=== PATIENT | female | born 1960 | race Caucasian/White ===

== ENCOUNTER → 2017-04-26 16:25 | Outpatient (CLI) | payer OTHER, SELFPAY ==
--- NOTE | 2017-04-26 16:29 | RAD_ITS ---
STUDY: X-RAY - CERVICAL SPINE REASON FOR EXAM: Female, 57 years old. Chronic neck pain. No known injury. TECHNIQUE: 3 view(s) of the cervical spine were obtained. COMPARISON: 03/01/2017 FINDINGS: There are degenerative changes of the anterior atlantoaxial articulation. Normal odontoid process. There is straightening of the normal cervical lordosis. There is diffuse demineralization of the cervical spine. C7 vertebra is not well-seen on the lateral view There is mild disc space narrowing of C3-C4. Normal visualized intervertebral neuroforamina. The soft tissue structures are unremarkable. RAD/Cerv Spine 2 or 3 Views IMPRESSION: Straightening of the cervical spine which could be due to muscle spasm. Mild degenerative changes cervical spine. Demineralization of the osseous structures. Electronically Signed: Corwin Melchor MD at 1:18 EST Tel , Service support ,
== END ==
PROVIDERS: Family Provider Family Medicine Geriatric Medicine; PCP Family Medicine Geriatric Medicine; Visit Provider Family Medicine Geriatric Medicine
DX: R05 Cough (principal); G54.2 Cervical root disorders, not elsewhere classified
CPT/HCPCS: 72040; 87633

== ENCOUNTER → 2017-05-05 16:08 | Outpatient (CLI) | payer OTHER, SELFPAY ==
--- NOTE | 2017-05-05 16:10 | MRI_ITS ---
STUDY: MRI CERVICAL SPINE WITHOUT CONTRAST REASON FOR EXAM: Female, 57 years old. Neck pain and radiculopathy. TECHNIQUE: Standardized fat and water weighted pulse sequences were obtained in the sagittal and axial planes. COMPARISON: Radiographs of cervical spine dated April 26, 2017. FINDINGS: Normal foramen magnum and brainstem-cervical cord junction. Normal craniovertebral junction. Normal anterior atlantoaxial articulation. Normal odontoid process. Normal cervical lordosis. There is mild decreased height of the C3, C4, C5, C6 and C7 vertebral bodies. This may be a developmental variant or sequela of old mild compression fractures. The remaining vertebral bodies have normal height and alignment. There is focus of abnormal T1 and T2 hyperintensity within T1 vertebral body. This may represent a hemangioma. C2-3: Normal endplates. Normal disc height, signal and morphology. Normal central canal and intervertebral neural foramina. C3-4: There is severe right-sided neural foraminal narrowing with potential nerve impingement. Left neural foramen is moderately narrowed. There is mild central acquired canal stenosis. There is a mild disc bulge. There is uncovertebral facet joint arthropathy. C4-5: There is severe bilateral neural foraminal narrowing with potential nerve impingement. There is a mild disc bulge. There is uncovertebral facet joint arthropathy. C5-6: Axial images at this level are limited by patient motion. The neural foramina are patent without evidence for nerve impingement. There is mild disc bulge. There is no significant central acquired canal stenosis. C6-7: Normal endplates. Normal disc height, signal and morphology. Normal central canal and intervertebral neural foramina. C7-T1: Normal endplates. Normal disc height, signal and morphology. Normal central canal and intervertebral neural foramina. Normal cervical cord. There is no demonstrated cervical cord syrinx cavity. Normal visualized soft tissue structures. MRI/Spine Cervical (Routine) IMPRESSION: Multilevel degenerative disc disease and degenerative arthropathy of the cervical spine with neural foraminal narrowing and potential nerve impingement, as described. Electronically Signed: Meena Street MD at 10:22 EST , Service support ,
== END ==
PROVIDERS: Family Provider Family Medicine Geriatric Medicine; PCP Family Medicine Geriatric Medicine; Visit Provider Family Medicine Geriatric Medicine
DX: G54.2 Cervical root disorders, not elsewhere classified (principal)
CPT/HCPCS: 72141

== ENCOUNTER → 2017-06-02 14:56 | Outpatient (CLI) | payer OTHER, SELFPAY ==
[2017-06-02 15:15] LABS: Absolute Lymphocyte Count 4.47 X10^3/ul (0.83-4.51); Absolute Neutrophil Count 5.7 X10^3/uL (2.0-7.7); Basophil# 0.06 X10^3/uL; Basophil% 0.5 % (0-1); Eosinophil# 0.17 X10^3/uL; Eosinophils% 1.5 % (0-5); Hematocrit 41.5 % (37-47); Hemoglobin 13.3 g/dl (12.0-15.0); Lymphocyte # 4.47 X10^3/ul (4.0); Lymphocyte % 39.5 % (19-41); Mean Corpuscular Hgb 28.9 pg (27.0-32.0); Monocyte# 0.87 X10^3/uL; Monocyte% 7.7 % (0-10); Neutrophil # 5.71 X10^3/uL (2.7-7.7); Neutrophil % 50.5 % (47-70); Platelet Count 449 K/mm3 (150-450); RBC Distribution Width CV 17.6 % (11.6-14.6); RBC Distribution Width SD 57.8 fl (35.1-43.9); Red Blood Count 4.61 M/mm3 (4.2-5.4); White Blood Count 11.3 K/mm3 (4.4-11.0)
[2017-06-02 15:35] LABS: POSITIVE COUNT NO; POSITIVE DIFFERENTIAL NO; POSITIVE MORPHOLOGY NO
[2017-06-02 15:53] LABS: ALB/GLOB Ratio 0.7 RATIO (0.9-2.4); AST(SGOT) 8 U/L (15-37); Alanine Aminotransfer ALT/SGPT 13 U/L (13-56); Albumin, Serum 3.3 g/dL (3.2-5.0); Alkaline Phosphatase 93 U/L (45-117); Anion Gap 10 (5-15); BUN 14 mg/dL (7-18); BUN/Creat Ratio 16.1 RATIO (10-20); Calcium,Total 8.7 mg/dL (8.5-10.1); Chloride 103 mmol/L (98-107); Creatinine, Serum 0.87 mg/dL (0.55-1.02); EST Glomerular Filtration Rate 71 mL/min (>60); Est Glom Filt Rate - Afr Amer 86 mL/min (>60); Globulin 4.5 g/dL (2.2-4.2); Glucose 86 mg/dL (74-106); Potassium 4.1 mmol/L (3.5-5.1); Protein, Total 7.8 g/dL (6.4-8.2); Sodium Level 136 mmol/L (136-145); Thyroid Stim Hormone (TSH) 3.17 uIU/mL (0.358-3.74)
== END ==
PROVIDERS: Family Provider Family Medicine Geriatric Medicine; PCP Family Medicine Geriatric Medicine; Visit Provider Family Medicine Geriatric Medicine
DX: E11.9 Type 2 diabetes mellitus without complications (principal); I10 Essential (primary) hypertension
CPT/HCPCS: 36415; 80053; 84443; 85025

== ENCOUNTER → 2017-10-11 08:26 | Outpatient (CLI) | payer OTHER, SELFPAY ==
--- NOTE | 2017-10-11 08:28 | RAD_ITS ---
STUDY: X-RAY - CERVICAL SPINE REASON FOR EXAM: Female, 57 years old. Pain radiating down rt arm TECHNIQUE: 4 view(s) of the cervical spine were obtained. COMPARISON: None FINDINGS: There are degenerative changes of the anterior atlantoaxial articulation. Normal odontoid process. There is straightening of the normal cervical lordosis. There is multi-level endplate spondylosis. There is multi-level degenerative disc disease with multilevel disc space narrowing. The flexion-extension views show limited range of motion. There is no evidence of instability. The soft tissue structures are unremarkable. RAD/Cerv Spine 4 or 5 Views IMPRESSION: There is multi-level degenerative disc disease with multilevel disc space narrowing. The flexion-extension views show limited range of motion. There is no evidence of instability. Electronically Signed: Donna Hernandez MD at 20:20 EDT Tel , Service support ,
== END ==
PROVIDERS: Family Provider Family Medicine Geriatric Medicine; PCP Family Medicine Geriatric Medicine; Visit Provider Orthopaedic Surgery
DX: M54.2 Cervicalgia (principal)
CPT/HCPCS: 72050

== ENCOUNTER → 2017-11-15 16:48 | Outpatient (CLI) | payer OTHER, SELFPAY ==
[2017-11-15 17:38] LABS: Absolute Lymphocyte Count 4.63 X10^3/ul (0.83-4.51); Absolute Neutrophil Count 6.6 X10^3/uL (2.0-7.7); Basophil# 0.07 X10^3/uL; Basophil% 0.5 % (0-1); Eosinophil# 0.31 X10^3/uL; Eosinophils% 2.4 % (0-5); Hematocrit 42.2 % (37-47); Hemoglobin 13.3 g/dl (12.0-15.0); Lymphocyte # 4.63 X10^3/ul (4.0); Lymphocyte % 36.1 % (19-41); Mean Corp Hgb Conc 31.5 g/gl (32-36); Mean Corpuscular Hgb 27.9 pg (27.0-32.0); Mean Corpuscular Volume 88.7 fL (81-99); Mean Platelet Vol. 10.3 fl (6.2-12.0); Monocyte# 1.15 X10^3/uL; Neutrophil # 6.63 X10^3/uL (2.7-7.7); Neutrophil % 51.8 % (47-70); Platelet Count 399 K/mm3 (150-450); RBC Distribution Width CV 15.8 % (11.6-14.6); Red Blood Count 4.76 M/mm3 (4.2-5.4); White Blood Count 12.8 K/mm3 (4.4-11.0)
[2017-11-15 17:39] LABS: Differential Indicated SCAN CRITERIA MET; POSITIVE COUNT NO; POSITIVE DIFFERENTIAL NO; POSITIVE MORPHOLOGY YES
[2017-11-15 17:54] LABS: ALB/GLOB Ratio 0.8 RATIO (0.9-2.4); AST(SGOT) 9 U/L (15-37); Alanine Aminotransfer ALT/SGPT 16 U/L (13-56); Albumin, Serum 3.5 g/dL (3.2-5.0); Alkaline Phosphatase 99 U/L (45-117); Anion Gap 6 (5-15); BUN 16 mg/dL (7-18); BUN/Creat Ratio 16.1 RATIO (10-20); Calcium,Total 9.1 mg/dL (8.5-10.1); Chloride 103 mmol/L (98-107); EST Glomerular Filtration Rate 61 mL/min (>60); Est Glom Filt Rate - Afr Amer 73 mL/min (>60); Globulin 4.4 g/dL (2.2-4.2); Glucose 115 mg/dL (74-106); Potassium 4.1 mmol/L (3.5-5.1); Protein, Total 7.9 g/dL (6.4-8.2); Sodium Level 136 mmol/L (136-145); Thyroid Stim Hormone (TSH) 1.86 uIU/mL (0.358-3.74)
[2017-11-15 18:09] LABS: Differential Comment SCANNED
[2017-11-18 11:51] LABS: Hep C Antibodies <0.1 s/co ratio (0.0-0.9)
== END ==
PROVIDERS: Family Provider Family Medicine Geriatric Medicine; PCP Family Medicine Geriatric Medicine; Visit Provider Family Medicine Geriatric Medicine
DX: E11.9 Type 2 diabetes mellitus without complications (principal); I10 Essential (primary) hypertension; Z13.89 Encounter for screening for other disorder
CPT/HCPCS: 36415; 80053; 84443; 85025; 86803

== ENCOUNTER → 2017-11-30 06:27 | Outpatient (CLI) | payer OTHER, SELFPAY ==
--- NOTE | 2017-11-30 13:30 | NEURO ---
NCS and/or EMG Patient Report Ordering Doctor: Adeel Norman Chi DATE OF SERVICE: 11/30/17 Sho Mahan is a 57-year-old female presents for electrodiagnostic testing of the upper limbs. She reports numbness and tingling in both hands, which often wake her up at night. Electrodiagnostic findings: The left median motor nerve demonstrates prolonged distal latency with normal amplitude and mildly reduced conduction velocity. Prolonged left median sensory latency is noted. The right median motor nerve demonstrates normal distal latency and amplitude with mildly reduced conduction velocity. Mildly delayed right median sensory distal latency. Ulnar motor responses within normal limits bilaterally. Needle EMG testing shows no evidence of denervation with normal motor unit action potentials. Electrodiagnostic impression: This is an abnormal study in the upper limbs. 1. Electrodiagnostic findings demonstrate bilateral median mononeuropathy. This is consistent with a mild bilateral carpal tunnel syndrome. 2. No EMG evidence for cervical radiculopathy. If there are any further questions, please do not hesitate to contact me
== END ==
LOC: PSN 06:27
PROVIDERS: Family Provider Family Medicine Geriatric Medicine; PCP Family Medicine Geriatric Medicine; Visit Provider Family Medicine Geriatric Medicine
DX: G54.2 Cervical root disorders, not elsewhere classified (principal); R20.0 Anesthesia of skin
CPT/HCPCS: 95886; 95912

== ENCOUNTER → 2017-12-05 14:21 | Outpatient (CLI) | payer OTHER, SELFPAY ==
--- NOTE | 2017-12-05 14:22 | CT_ITS ---
STUDY: CT ABDOMEN AND PELVIS WITH CONTRAST REASON FOR EXAM: Female, 57 years old. Abdominal pain. RADIATION DOSAGE (If Supplied By Facility): CTDIvol = ( 20.39 ) mGy, DLP = ( 1173.29 ) mGycm TECHNIQUE: Transaxial images were obtained from the dome of the diaphragm to the symphysis pubis without oral contrast. 100 ml of Isovue 300 contrast was administered. Sagittal and coronal images were reconstructed. Individualized dose optimization techniques were used for this CT. COMPARISON: None. FINDINGS: The visualized lung bases are clear. The visualized portions of the heart and pericardium are within normal limits. The patient is status post cholecystectomy. The liver is within normal limits. There are no suspicious hepatic lesions. The spleen is normal in size. The pancreas is within normal limits. The adrenal glands are within normal limits. There are no renal or ureteral stones. There is no hydronephrosis. There is a cyst in the left kidney. There are no additional renal lesions. There is a small hiatal hernia. The proximal stomach wall appears thickened. This may be due to under distention or gastritis. There are thickened loops of small bowel in right lower quadrant which are consistent with enteritis. There is no bowel obstruction. The patient is status post appendectomy. The aorta is normal in caliber. There are atherosclerotic calcifications noted in the aorta and its branches. There is no abdominal or pelvic free air, free fluid, fluid collection or lymphadenopathy. There are no destructive osseous lesions. CT/Abdomen/Pelvis WITH Contrast IMPRESSION: Thickened loops of small bowel in the right lower quadrant which are consistent with enteritis. Thickening of the proximal stomach wall. This may be due to under distention or gastritis. Clinical correlation is recommended. No bowel obstruction. Status post appendectomy. Electronically Signed: Angel Santoro, at 16:54 EDT Tel , Service support ,
[2017-12-05 15:20] LABS: ALB/GLOB Ratio 0.7 RATIO (0.9-2.4); AST(SGOT) 15 U/L (15-37); Alanine Aminotransfer ALT/SGPT 18 U/L (13-56); Albumin, Serum 3.4 g/dL (3.2-5.0); Alkaline Phosphatase 112 U/L (45-117); Amylase 24 U/L (25-115); Anion Gap 10 (5-15); BUN 26 mg/dL (7-18); BUN/Creat Ratio 20.5 RATIO (10-20); Calcium,Total 9.4 mg/dL (8.5-10.1); Chloride 103 mmol/L (98-107); Creatinine, Serum 1.27 mg/dL (0.55-1.02); EST Glomerular Filtration Rate 46 mL/min (>60); Est Glom Filt Rate - Afr Amer 55 mL/min (>60); Glucose 96 mg/dL (74-106); Lipase 288 U/L (73-393); Potassium 3.6 mmol/L (3.5-5.1); Protein, Total 8.4 g/dL (6.4-8.2); Sodium Level 134 mmol/L (136-145)
== END ==
PROVIDERS: Family Provider Family Medicine Geriatric Medicine; PCP Family Medicine Geriatric Medicine; Visit Provider Family Medicine Geriatric Medicine
DX: K57.32 Diverticulitis of large intestine without perforation or abscess without bleeding (principal); R10.9 Unspecified abdominal pain
CPT/HCPCS: 74177; 80053; 82150; 83690; Q9967

== ENCOUNTER → 2017-12-07 09:29 | Outpatient (CLI) | payer OTHER, SELFPAY | PROVIDERS: Family Provider Family Medicine Geriatric Medicine; PCP Family Medicine Geriatric Medicine; Visit Provider Family Medicine Geriatric Medicine | DX: R19.7 Diarrhea, unspecified (principal) | CPT/HCPCS: 82274; 83630; 87070; 87177; 87205; 87209; 87493; 87506 ==

== ENCOUNTER → 2018-03-15 15:07 | Outpatient (CLI) | payer OTHER, SELFPAY ==
[2018-02-23 15:24] VITALS: BMI 32.8
--- NOTE | 2018-03-15 15:09 | ECHOD_ITS ---
Reason For Study: MURMUR Procedure This was a 2D Doppler, Color Flow transthoracic echocardiogram. The study was technically difficult. Exam performed in department. Left Ventricle Normal LV size. Segmental dysfunction with preserved ejection fraction (see wall motion). The estimated ejection fraction is 60 %. No evidence for diastolic dysfunction. Infero-Basal: Hypokinetic. Right Ventricle Normal RV size. Normal systolic function. Atria The left atrium is mildly enlarged. Normal right atrium. No doppler evidence for ASD. Mitral Valve There is mild mitral annular calcification. Normal mitral valve. Trivial mitral valve insufficiency. Tricuspid Valve Normal tricuspid valve. Trivial tricuspid valve insufficiency. Right ventricular systolic pressure estimated to be 24 mmHg. Aortic Valve Trisinus/trileaflet aortic valve. Mild focal aortic valve calcification. Pulmonic Valve The pulmonic valve is not well visualized. Great Vessels Normal sized aortic root. Pericardium/Pleural No pericardial effusion. MMode/2D Measurements & Calculations LVIDd: 3.9 cm IVSd: 0.98 cm Ao root diam: 3.0 cm LVIDs: 2.8 cm LVPWd: 0.96 cm RVDd: 2.5 cm FS: 28.7 % LAV(MOD-bp): 55.9 ml LVAd ap4: 22.1 cm2 SV(MOD-sp4): 36.3 ml LAV(MOD-bp) Indexed: 29.7 ml/m2 EDV(MOD-sp4): 60.8 ml LAV(MOD-sp2): 62.5 ml EDV(sp4-el): 64.0 ml LAV(MOD-sp4): 49.2 ml LVAs ap4: 12.4 cm2 ESV(MOD-sp4): 24.6 ml ESV(sp4-el): 25.0 ml EF(MOD-sp4): 59.6 % EF(sp4-el): 60.9 % SV(sp4-el): 39.0 ml LA A4 area: 18.2 cm2 LA dimension(2D): 4.3 cm RA A4 area: 11.5 cm2 Time Measurements MV dec time: 0.24 sec Doppler Measurements & Calculations MV E max salbador: 75.6 cm/sec Lat Peak E' Salbador: 7.7 cm/sec Med Peak E' Salbador: 5.7 cm/sec MV A max salbador: 101.6 cm/sec E/E' lat: 9.8 E/E' med: 13.2 MV E/A: 0.74 Ao V2 max: 126.7 cm/sec LV V1 max: 100.0 cm/sec PA V2 max: 112.5 cm/sec Ao max P.4 mmHg LV V1 max P.0 mmHg TR max salbador: 229.7 cm/sec TR max P.3 mmHg Interpretation Summary The study was technically difficult. Segmental dysfunction with preserved ejection fraction (see wall motion). The estimated ejection fraction is 60 %. The left atrium is mildly enlarged. There is mild mitral annular calcification. Trivial mitral valve insufficiency. Trivial tricuspid valve insufficiency. Mild focal aortic valve calcification. Right ventricular systolic pressure estimated to be 24 mmHg. No evidence for diastolic dysfunction. Ordering Physician: Liam Cazares Referring Physician: DEAN YE CHI Performed By: Jesika Oliver, RDCS, RVT
== END ==
PROVIDERS: Family Provider Family Medicine Geriatric Medicine; PCP Family Medicine Geriatric Medicine; Referring Provider Internal Medicine Cardiovascular Disease; Visit Provider Internal Medicine Cardiovascular Disease
DX: I38 Endocarditis, valve unspecified (principal); R01.1 Cardiac murmur, unspecified
CPT/HCPCS: 93306

== ENCOUNTER → 2018-11-21 09:32 | Outpatient (CLI) | payer OTHER, SELFPAY ==
[2018-02-23 15:24] VITALS: BMI 32.8
[2018-11-21 17:10] LABS: Absolute Lymphocyte Count 4.08 X10^3/uL (0.83-4.51); Absolute Neutrophil Count 5.2 X10^3/uL (2.0-7.7); Basophil# 0.09 X10^3/uL; Basophil% 0.9 % (0-1); Eosinophil# 0.25 X10^3/uL; Eosinophils% 2.4 % (0-5); Hematocrit 40.9 % (37-47); Hemoglobin 12.9 g/dL (12.0-15.0); Lymphocyte # 4.08 X10^3/ul (4.0); Lymphocyte % 39.3 % (19-41); Mean Corp Hgb Conc 31.5 g/dL (32-36); Mean Corpuscular Hgb 27.6 pg (27.0-32.0); Mean Corpuscular Volume 87.4 fL (81-99); Mean Platelet Vol. 10.7 fl (6.2-12.0); Monocyte# 0.77 X10^3/uL; Monocyte% 7.4 % (0-10); NRBC Flagged by Analyzer 0 % (0-5); Neutrophil # 5.15 X10^3/uL (2.7-7.7); Neutrophil % 49.7 % (47-70); POSITIVE MORPHOLOGY YES; Platelet Count 422 K/mm3 (150-450); RBC Distribution Width CV 17.3 % (11.6-14.6); Red Blood Count 4.68 M/mm3 (4.2-5.4); White Blood Count 10.4 K/mm3 (4.4-11.0)
[2018-11-21 17:21] LABS: Differential Indicated SCAN CRITERIA MET
[2018-11-21 17:26] LABS: Vitamin D,25 Hydroxy 17.6 ng/mL (29.95-100.01)
[2018-11-21 17:30] LABS: ALB/GLOB Ratio 0.8 RATIO (0.9-2.4); AST(SGOT) 8 U/L (15-37); Alanine Aminotransfer ALT/SGPT 17 U/L (13-56); Albumin, Serum 3.3 g/dL (3.2-5.0); Alkaline Phosphatase 133 U/L (45-117); Anion Gap 6 (5-15); BUN 10 mg/dL (7-18); BUN/Creat Ratio 12.8 RATIO (10-20); Calcium,Total 8.9 mg/dL (8.5-10.1); Chloride 104 mmol/L (98-107); Creatinine, Serum 0.78 mg/dL (0.55-1.02); EST Glomerular Filtration Rate 80 mL/min (>60); Est Glom Filt Rate - Afr Amer 97 mL/min (>60); Globulin 4.3 g/dL (2.2-4.2); Glucose 94 mg/dL (74-106); Potassium 3.3 mmol/L (3.5-5.1); Protein, Total 7.6 g/dL (6.4-8.2); Sodium Level 137 mmol/L (136-145); Thyroid Stim Hormone (TSH) 2.06 uIU/mL (0.358-3.74)
== END ==
LOC: POLAB3 09:33
PROVIDERS: Family Provider Family Medicine Geriatric Medicine; PCP Family Medicine Geriatric Medicine; Visit Provider Family Medicine Geriatric Medicine
DX: E11.9 Type 2 diabetes mellitus without complications (principal); E55.9 Vitamin D deficiency, unspecified; I10 Essential (primary) hypertension
CPT/HCPCS: 36415; 80053; 82306; 84443; 85025

== ENCOUNTER → 2019-05-29 11:24 | Outpatient (CLI) | payer OTHER, SELFPAY ==
[2018-02-23 15:24] VITALS: BMI 32.8
[2019-05-29 16:59] LABS: Absolute Lymphocyte Count 4.49 X10^3/uL (0.83-4.51); Absolute Neutrophil Count 6.1 X10^3/uL (2.0-7.7); Basophil# 0.12 X10^3/uL; Eosinophil# 0.24 X10^3/uL; Hematocrit 42.8 % (37-47); Lymphocyte # 4.49 X10^3/ul (4.0); Lymphocyte % 36.9 % (19-41); Mean Corp Hgb Conc 32.7 g/dL (32-36); Mean Corpuscular Hgb 28.7 pg (27.0-32.0); Mean Corpuscular Volume 87.9 fL (81-99); Monocyte# 1.13 X10^3/uL; Monocyte% 9.3 % (0-10); NRBC Flagged by Analyzer 0 % (0-5); Neutrophil # 6.14 X10^3/uL (2.7-7.7); Neutrophil % 50.4 % (47-70); Platelet Count 413 K/mm3 (150-450); RBC Distribution Width CV 15.1 % (11.6-14.6); RBC Distribution Width SD 48.7 fl (35.1-43.9); Red Blood Count 4.87 M/mm3 (4.2-5.4); White Blood Count 12.2 K/mm3 (4.4-11.0)
[2019-05-29 17:37] LABS: ALB/GLOB Ratio 0.7 RATIO (0.9-2.4); AST(SGOT) 14 U/L (15-37); Alanine Aminotransfer ALT/SGPT 21 U/L (13-56); Albumin, Serum 3.3 g/dL (3.2-5.0); Alkaline Phosphatase 117 U/L (45-117); Anion Gap 6 (5-15); BUN 11 mg/dL (7-18); BUN/Creat Ratio 13.9 RATIO (10-20); Calcium,Total 8.9 mg/dL (8.5-10.1); Chloride 99 mmol/L (98-107); Creatinine, Serum 0.79 mg/dL (0.55-1.02); EST Glomerular Filtration Rate 79 mL/min (>60); Est Glom Filt Rate - Afr Amer 96 mL/min (>60); Globulin 4.6 g/dL (2.2-4.2); Glucose 80 mg/dL (74-106); Potassium 3.3 mmol/L (3.5-5.1); Protein, Total 7.9 g/dL (6.4-8.2); Sodium Level 135 mmol/L (136-145); Thyroid Stim Hormone (TSH) 4.16 uIU/mL (0.358-3.74)
== END ==
PROVIDERS: PCP Family Medicine Geriatric Medicine; Visit Provider Family Medicine Geriatric Medicine
DX: I10 Essential (primary) hypertension (principal)
CPT/HCPCS: 36415; 80053; 84443; 85025

== ENCOUNTER → 2019-08-14 06:31 | Outpatient (CLI) | payer OTHER, SELFPAY ==
[2019-07-19 10:11] VITALS: BMI 29.2
--- NOTE | 2019-08-14 08:35 | STRESSREP_ITS ---
Stress Test Report Date: Procedure: Pharmacologic stress nuclear imaging study Indications: Chest discomfort; shortness of breath/dyspnea; CAD; status post CABG; CHF; valvular heart disease Consent: Per the patient Procedure: The patient underwent pharmacologic (Regadenoson) evaluation with a peak heart rate of 114 beats per minute (71 %predicted maximal heart rate) and a peak blood pressure of 166/90 mmHg. The baseline ECG demonstrated normal sinus rhythm. The peak pharmacologic ECG demonstrated no obvious ECG changes. There were no cardiac dysrhythmias pretest, during pharmacologic infusion, or recovery. There was no complaint of chest discomfort during pharmacologic infusion or recovery. The examination was discontinued secondary to completion of protocol. Impression: 1. Pharmacologic (Regadenoson) evaluation 2. Peak pharmacologic ECG with no obvious ECG changes. 3. There were no cardiac dysrhythmias pretest, during pharmacologic infusion, or recovery. 4. Nuclear images pending Myocardial perfusion imaging study: Technique: The patient was injected with 15.0 millicuries of technetium 99m Cardiolite and subsequently rest SPECT Cardiolite nuclear imaging was obtained in the horizontal long, vertical long, and short axis views. The patient underwent pharmacologic (Regadenoson) evaluation with a peak heart rate of 114 beats per minute (71 % percent predicted maximal heart rate) and a peak blood pressure of 166/90 mmHg. The patient was injected with 45.0 millicuries of technetium 99m Cardiolite and subsequently stress SPECT Cardiolite nuclear imaging was obtained in the horizontal long, vertical long, and short axis views. A gated Cardiolite study at peak stress was obtained. Interpretation: Rest and stress SPECT Cardiolite nuclear imaging status post realignment, normalization, and attenuation correction demonstrate the appearance of subtle diminished tracer uptake in the apical areas without significant change between rest and stress. There is end systolic thickening and brightening. The gated Cardiolite study demonstrates myocardial thickening and inward wall motion. The reported LVEF is 67 %. Impression: 1. Rest and stress SPECT Cardiolite nuclear imaging demonstrate myocardial perfusion changes compatible with physiologic apical thinning with no myocardial perfusion changes considered diagnostic for associated stress-induced myocardial ischemia. 2. The gated Cardiolite study reports an LVEF of 67 %. This note was generated with [employer] software. It may contain incorrect words, spelling, and punctuation that were not noted in checking the note before signing.
== END ==
PROVIDERS: PCP Family Medicine Geriatric Medicine; Referring Provider Internal Medicine Cardiovascular Disease; Visit Provider Internal Medicine Cardiovascular Disease
DX: I25.10 Atherosclerotic heart disease of native coronary artery without angina pectoris (principal); Z95.1 Presence of aortocoronary bypass graft; I11.0 Hypertensive heart disease with heart failure; I50.23 Acute on chronic systolic (congestive) heart failure; I38 Endocarditis, valve unspecified; E78.2 Mixed hyperlipidemia; R68.84 Jaw pain
CPT/HCPCS: 78452; 93017; A9500; A4216; J2785

== ENCOUNTER → 2020-01-14 16:33 | Outpatient (CLI) | payer OTHER, SELFPAY ==
[2018-02-23 15:24] VITALS: BMI 32.8
[2019-07-19 10:11] VITALS: BMI 29.2
[2020-01-14 17:56] LABS: Absolute Neutrophil Count 5.7 X10^3/uL (2.0-7.7); Eosinophil# 0.27 X10^3/uL; Eosinophils% 2.6 % (0-5); Hematocrit 38.2 % (37-47); Hemoglobin 12.3 g/dL (12.0-15.0); Lymphocyte % 32.7 % (19-41); Mean Corp Hgb Conc 32.2 g/dL (32-36); Mean Corpuscular Hgb 28.7 pg (27.0-32.0); Mean Platelet Vol. 10.4 fl (6.2-12.0); Monocyte# 0.85 X10^3/uL; Monocyte% 8.2 % (0-10); NRBC Flagged by Analyzer 0 % (0-5); Neutrophil # 5.73 X10^3/uL (2.7-7.7); Neutrophil % 54.9 % (47-70); Platelet Count 412 K/mm3 (150-450); RBC Distribution Width CV 14.4 % (11.6-14.6); RBC Distribution Width SD 45.8 fl (35.1-43.9); Red Blood Count 4.29 M/mm3 (4.2-5.4); White Blood Count 10.4 K/mm3 (4.4-11.0)
[2020-01-14 18:58] LABS: ALB/GLOB Ratio 0.7 RATIO (0.9-2.4); AST(SGOT) 12 U/L (15-37); Alanine Aminotransfer ALT/SGPT 18 U/L (13-56); Alkaline Phosphatase 109 U/L (45-117); Anion Gap 8 (5-15); BUN 8 mg/dL (7-18); BUN/Creat Ratio 10.6 RATIO (10-20); Calcium,Total 8.4 mg/dL (8.5-10.1); Chloride 104 mmol/L (98-107); Creatinine, Serum 0.76 mg/dL (0.55-1.02); EST Glomerular Filtration Rate 83 mL/min (>60); Est Glom Filt Rate - Afr Amer 100 mL/min (>60); Globulin 4.5 g/dL (2.2-4.2); Glucose 119 mg/dL (74-106); Potassium 3.5 mmol/L (3.5-5.1); Protein, Total 7.5 g/dL (6.4-8.2); Sodium Level 138 mmol/L (136-145); Thyroid Stim Hormone (TSH) 1.56 uIU/mL (0.358-3.74)
== END ==
LOC: POLAB3 16:33
PROVIDERS: PCP Family Medicine Geriatric Medicine; Visit Provider Family Medicine Geriatric Medicine
DX: E87.6 Hypokalemia (principal); E03.9 Hypothyroidism, unspecified; I10 Essential (primary) hypertension
CPT/HCPCS: 36415; 80053; 84443; 85025

== ENCOUNTER → 2020-04-22 17:22 | Outpatient (CLI) | payer MEDICAID, SELFPAY ==
[2019-07-19 10:11] VITALS: BMI 29.2
== END ==
PROVIDERS: PCP Family Medicine Geriatric Medicine; Referring Provider Family Medicine Geriatric Medicine; Visit Provider Family Medicine Geriatric Medicine
DX: R68.83 Chills (without fever) (principal)
CPT/HCPCS: 87633; 87635; C9803; U0005; U0003

== ENCOUNTER → 2020-07-14 16:08 | Outpatient (CLI) | payer MEDICAID, SELFPAY ==
[2019-07-19 10:11] VITALS: BMI 29.2
[2020-07-14 17:36] LABS: Absolute Lymphocyte Count 3.97 X10^3/uL (0.83-4.51); Absolute Neutrophil Count 4.6 X10^3/uL (2.0-7.7); Basophil# 0.09 X10^3/uL; Basophil% 0.9 % (0-1); Eosinophil# 0.25 X10^3/uL; Eosinophils% 2.5 % (0-5); Hematocrit 40.1 % (37-47); Hemoglobin 12.6 g/dL (12.0-15.0); Lymphocyte # 3.97 X10^3/ul (0.83-4.51); Lymphocyte % 40.3 % (19-41); Mean Corp Hgb Conc 31.4 g/dL (32-36); Mean Corpuscular Hgb 27.4 pg (27.0-32.0); Mean Corpuscular Volume 87.2 fL (81-99); Mean Platelet Vol. 10.3 fl (6.2-12.0); Monocyte# 0.87 X10^3/uL; Monocyte% 8.8 % (0-10); NRBC Flagged by Analyzer 0 % (0-5); Neutrophil # 4.63 X10^3/uL (2.7-7.7); Neutrophil % 47.2 % (47-70); Platelet Count 438 K/mm3 (150-450); RBC Distribution Width CV 14.5 % (11.6-14.6); RBC Distribution Width SD 46.3 fl (35.1-43.9); White Blood Count 9.8 K/mm3 (4.4-11.0)
[2020-07-14 18:00] LABS: ALB/GLOB Ratio 0.7 RATIO (0.9-2.4); AST(SGOT) 11 U/L (15-37); Alanine Aminotransfer ALT/SGPT 22 U/L (13-56); Albumin, Serum 3.2 g/dL (3.2-5.0); Alkaline Phosphatase 137 U/L (45-117); Anion Gap 6 (5-15); BUN 12 mg/dL (7-18); BUN/Creat Ratio 16.2 RATIO (10-20); Calcium,Total 9.2 mg/dL (8.5-10.1); Chloride 100 mmol/L (98-107); Creatinine, Serum 0.74 mg/dL (0.55-1.02); EST Glomerular Filtration Rate 84 mL/min (>60); Est Glom Filt Rate - Afr Amer 102 mL/min (>60); Globulin 4.5 g/dL (2.2-4.2); Glucose 100 mg/dL (74-106); Potassium 3.8 mmol/L (3.5-5.1); Protein, Total 7.7 g/dL (6.4-8.2); Sodium Level 135 mmol/L (136-145); Thyroid Stim Hormone (TSH) 2.89 uIU/mL (0.358-3.74)
== END ==
PROVIDERS: PCP Family Medicine Geriatric Medicine; Visit Provider Family Medicine Geriatric Medicine
DX: I10 Essential (primary) hypertension (principal)
CPT/HCPCS: 36415; 80053; 84443; 85025

== ENCOUNTER → 2021-01-15 15:56 | Outpatient (CLI) | payer MEDICAID, SELFPAY ==
[2021-01-15 16:42] LABS: Absolute Lymphocyte Count 4.22 X10^3/uL (0.83-4.51); Absolute Neutrophil Count 6.8 X10^3/uL (2.0-7.7); Basophil% 0.8 % (0-1); Eosinophil# 0.35 X10^3/uL; Eosinophils% 2.8 % (0-5); Hematocrit 38.7 % (37-47); Hemoglobin 12.6 g/dL (12.0-15.0); Lymphocyte # 4.22 X10^3/ul (0.83-4.51); Lymphocyte % 33.4 % (19-41); Mean Corp Hgb Conc 32.6 g/dL (32-36); Mean Corpuscular Hgb 27.6 pg (27.0-32.0); Mean Corpuscular Volume 84.9 fL (81-99); Mean Platelet Vol. 10.1 fl (6.2-12.0); Monocyte# 1.16 X10^3/uL; Monocyte% 9.2 % (0-10); NRBC Flagged by Analyzer 0 % (0-5); Neutrophil # 6.75 X10^3/uL (2.7-7.7); Neutrophil % 53.4 % (47-70); POSITIVE MORPHOLOGY YES; Platelet Count 401 K/mm3 (150-450); RBC Distribution Width CV 16.1 % (11.6-14.6); RBC Distribution Width SD 50.2 fl (35.1-43.9); Red Blood Count 4.56 M/mm3 (4.2-5.4); White Blood Count 12.6 K/mm3 (4.4-11.0)
[2021-01-15 16:45] LABS: Differential Indicated SCAN CRITERIA MET
[2021-01-15 17:06] LABS: ALB/GLOB Ratio 0.7 RATIO (0.9-2.4); AST(SGOT) 16 U/L (15-37); Alanine Aminotransfer ALT/SGPT 25 U/L (13-56); Albumin, Serum 3.2 g/dL (3.2-5.0); Alkaline Phosphatase 122 U/L (45-117); Anion Gap 8 (5-15); BUN 15 mg/dL (7-18); BUN/Creat Ratio 19.4 RATIO (10-20); Calcium,Total 8.4 mg/dL (8.5-10.1); Chloride 97 mmol/L (98-107); Creatinine, Serum 0.77 mg/dL (0.55-1.02); EST Glomerular Filtration Rate 80 mL/min (>60); Est Glom Filt Rate - Afr Amer 97 mL/min (>60); Globulin 4.7 g/dL (2.2-4.2); Glucose 95 mg/dL (74-106); Potassium 4.2 mmol/L (3.5-5.1); Protein, Total 7.9 g/dL (6.4-8.2); Sodium Level 133 mmol/L (136-145); Thyroid Stim Hormone (TSH) 3.25 uIU/mL (0.358-3.74)
[2021-01-15 17:39] LABS: Differential Comment SCANNED
== END ==
PROVIDERS: PCP Family Medicine Geriatric Medicine; Visit Provider Family Medicine Geriatric Medicine
DX: I10 Essential (primary) hypertension (principal); E11.9 Type 2 diabetes mellitus without complications
CPT/HCPCS: 36415; 80053; 84443; 85025

== ENCOUNTER 2021-02-13 11:29 | Inpatient (IN) | payer OTHER, SELFPAY ==
[2021-02-13] VITALS (13 sets, daily range): BP systolic 104–176; BP diastolic 64–101; PULSE 60–78; RESP 18–20; TEMP 36.2–37.2; O2SAT 94–100; BMI 32.5; BMI 32.8
--- NOTE | 2021-02-13 13:52 | EKG12_ITS ---
Test Reason : BCK/ARM PAIN Blood Pressure : / mmHG Vent. Rate : 066 BPM Atrial Rate : 065 BPM P-R Int : 000 ms QRS Dur : 082 ms QT Int : 430 ms P-R-T Axes : 000 016 -04 degrees QTc Int : 450 ms Normal sinus rhythm Anterior ischemia Abnormal ECG Confirmed by LEELA CALLE, MELO ([id number]), supervising editor news reel RODOLFO MARTIN ([id number]) on 02/17/2021 8:57:14 AM Referred By: JESUS MANUEL/CAYDEN Confirmed By:MELO SWENSON MD
--- NOTE | 2021-02-13 13:53 | EDS_ITS ---
HPI History of Present Illness Chief Complaint: Back Informant: patient Onset/Context/Timing Onset: Yesterday Activity at onset: gradual Timing: Continuous Quality: Positive for Heaviness and Tightness Location: Substernal (And across upper back, started in mid upper back) Current Severity: Severe Maximum Severity: Severe Worsened By: Exertion; Not Worsened By Movement of Arm, Movement of Torso, Eating and Breathing Relieved By: Nothing Associated Symptoms: Positive for Dyspnea and Cough (P[employer]MENT [employer]); Negative for Nausea, Vomiting, Diaphoresis, Fever, Lightheadedness and Palpitations Narrative Narrative: Patient states yesterday started having pain between her shoulder blades and now it has involved her entire chest, more the upper chest but both sides and substernal, all the way around. Hard to breathe a little bit more an issue of the discomfort. No nausea, vomiting, diarrhea. No fevers or ch ills. She is coughing a little. Has a history of CAD with a 2 way bypass, she still smokes. Also history of congestive heart failure she denies any COPD. No recent long travel or hospitalization/surgery. No history of DVT or PE, no recent leg pain or swelling. About 10 days ago she had contact with someone with COVID-19, has not had contact with them since, she was vaccinated prior. [facility] Medical History (Updated 02/13/21 @ 14:[address] Roberth Mckeon MD) Acute on chronic systolic (congestive) heart failure Acute systolic (congestive) heart failure Atherosclerosis of [place] coronary artery of [place] heart without angina pectoris Congestive heart failure Dyspnea Essential hypertension GERD (gastroesophageal reflux disease) Hypothyroidism Hypoxemia Mixed hyperlipidemia Smoker Valvular heart disease Valvular heart disease Home Medications aspirin 81 mg PO DAILY@0800 #30 tab 03/03/17 [Rx Last Taken Unknown] atorvastatin 40 mg tablet 40 mg PO QHS #90 tab 04/14/17 [Rx Last Taken Unknown] carvedilol 12.5 mg tablet 12.5 mg PO BID #180 tab 04/14/17 [Rx Last Taken Unknown] omeprazole 40 mg capsule,delayed release 40 mg PO DAILY #90 cap 04/14/17 [Rx Last Taken Unknown] furosemide 40 mg tablet 20 mg PO DAILY tab 02/23/18 [History Last Taken Unknown] isosorbide mononitrate 30 mg tablet,extended release 24 hr 15 mg PO DAILY tab 02/23/18 [History Last Taken Unknown] venlafaxine 75 mg capsule,extended release 24 hr 75 mg PO DAILY 02/23/18 [History Last Taken Unknown] levothyroxine 25 mcg tablet 25 mcg PO DAILY 07/19/19 [History Last Taken Unknown] lisinopril 40 mg tablet 40 mg PO DAILY tab 07/19/19 [History Last Taken Unknown] nitroglycerin 0.4 mg sublingual tablet 0.4 mg SUBLINGUAL ONCE #90 tab 07/19/19 [Rx Last Taken Unknown] Allergy/AdvReac Type Severity Reaction Status Date / Time No Known Allergies Allergy Verified 02/13/21 11:31 Family History Father CAD (coronary artery disease) Afib Hypertension Mother Hypertension Diabetes CAD (coronary artery disease) Son Hypertension Surgical History History of coronary artery bypass graft x 2 (~2009) Social History Smoking Status: Current some day smoker tobacco type: cigarettes alcohol intake: current alcohol intake frequency: a few times a week Alcohol type: beer substance use type: does not use caffeine: Yes Type: coffee Number of servings: 1 what type of physical activity do you participate in: walking frequency: daily duration: 15-30 minutes/day seatbelt use: always do you feel safe at home: Yes ROS ROS ED Constitutional Constitutional ED: Denies chills or fever(s) Eyes Eyes: Denies change in vision or diplopia ENT ENT ED: Denies rhinorrhea or sore throat Cardiovascular Cardiovascular: Reports as per HPI and chest pain; Denies palpitations or pedal edema Respiratory/Chest Respiratory/Chest: Reports cough and dyspnea; Denies excessive phlegm production or hemoptysis Gastrointestinal Gastrointestinal: Denies abdominal pain, diarrhea, nausea or vomiting Genitourinary Genitourinary ED: Denies dysuria or hematuria Musculoskeletal Musculoskeletal: Reports back pain; Denies neck pain Integumentary Denies abscess or rash Neurologic Neurologic: Denies headache(s), paresthesias or weakness Psychiatric Psychiatric: Denies anxiety or suicidal thoughts EXAM Physical Exam Const Vital Signs: 02/13/21 11:30 02/13/21 13:57 02/13/21 14:18 Temperature 97.9 F Temperature Source Temporal Pulse Rate 64 66 Respiratory Rate 18 Blood Pressure 143/68 H 176/85 H Blood Pressure Mean 93 Pulse Ox 100 Oxygen Delivery Method Room Air Room Air Positive well nourished, well developed and obese Constitutional Narrative: Appears uncomfortable but no distress General Appearance ED: well developed and NAD Nutritional Appearance: obese HEENT Reports moist mucous membranes normocephalic and atraumatic Eyes PERRL and EOMs intact bilaterally Neck full ROM and supple Resp normal respiratory effort and clear to auscultation bilaterally Cardio regular rate, regular rhythm, no murmurs and no JVD Cardio Narrative: Symmetric 2+/4 radial pulses Rate: Negative for tachycardic GI non-tender and non-distended Auscultation: normoactive bowel sounds Palpation: soft Back/Spine no CVA tenderness General Back: other FROM Extremity normal to inspection and no calf tenderness General Extremety ED: Negative for edema, pulses abnormal or tenderness General Extremity: Negative for edema or pulses abnormal Neuro oriented x3, CN's II-XII intact bilaterally and no sensory deficits noted Sensorium / Orientation: awake and alert Motor Exam: strength 5/5 throughout Skin no rashes or lesions noted and no wounds Heart Score History: Highly Suspicious ECG: Nonspecific Repolarization Age: >45 - <65 years Risk Factors: >/= 3 Risk Factors or History of CAD Troponin: >/=3 x Normal Limit Score: 8 MDM MDM MDM Narrative Medical decision making narrative: Troponin elevated at 500, her EKG does not show any acute changes, but her symptoms are very concerning. Concerning for non-STEMI. She was given nitroglycerin and morphine, in addition to aspirin, and a Covid test was sent. It is positive. Discussed with Dr. Guillermo; will hold on clopidogrel/Brilinta, and start on heparin in addition to the nitroglycerin to get the patient's discomfort under control. Will admit to PCU. Lab Data Attestation: I reviewed the patient's lab results. Labs: Laboratory Results - last 24 hr 02/13/21 02/13/21 13:34 13:34 WBC 9.0 RBC 5.11 Hgb 14.4 Hct 43.2 MCV 84.5 MCH 28.2 MCHC 33.3 RDW Std Deviation 49.3 H RDW Coeff of Bel 15.9 H Plt Count 280 MPV 10.6 Immature Gran % (Auto) 0.300 Neut % (Auto) 67.7 Lymph % (Auto) 21.8 [place] % (Auto) 9.6 Eos % (Auto) 0.2 Baso % (Auto) 0.4 Absolute Neuts (auto) 6.1 Absolute Lymphs (auto) 1.97 Nucleated RBC % 0 Sodium 136 Potassium 3.9 Chloride 104 Carbon Dioxide 25.0 Anion Gap 7 BUN 10 Creatinine 0.74 Estim Creat Clear Calc 62.34 Est GFR (MDRD) Af Amer 102 Est GFR (MDRD) Non-Af 84 BUN/Creatinine Ratio 13.5 Glucose 127 H Calcium 9.2 Troponin I High Sens 501 H* EKG Initial EKG: Attestation: I personally reviewed and interpreted this EKG as follows: Interpretation: Sinus Rhythm, No Acute Injury Pattern and Inverted T-Waves (Anteroseptal, unchanged compared with prior) Prior EKG tracings: available for review Prior: Unchanged Discharge Plan Dx/Rx/DC Orders Clinical Impression: Acute non-ST elevation myocardial infarction (NSTEMI), COVID-19 Disposition Disposition: Acute Care Hospital [facility]
[2021-02-13 14:06] LABS: Absolute Lymphocyte Count 1.97 X10^3/uL (0.83-4.51); Absolute Neutrophil Count 6.1 X10^3/uL (2.0-7.7); Basophil# 0.04 X10^3/uL; Basophil% 0.4 % (0-1); Eosinophil# 0.02 X10^3/uL; Eosinophils% 0.2 % (0-5); Hematocrit 43.2 % (37-47); Hemoglobin 14.4 g/dL (12.0-15.0); Lymphocyte # 1.97 X10^3/ul (0.83-4.51); Lymphocyte % 21.8 % (19-41); Mean Corp Hgb Conc 33.3 g/dL (32-36); Mean Corpuscular Hgb 28.2 pg (27.0-32.0); Mean Corpuscular Volume 84.5 fL (81-99); Mean Platelet Vol. 10.6 fl (6.2-12.0); Monocyte# 0.87 X10^3/uL; Monocyte% 9.6 % (0-10); NRBC Flagged by Analyzer 0 % (0-5); Neutrophil # 6.09 X10^3/uL (2.7-7.7); Neutrophil % 67.7 % (47-70); Platelet Count 280 K/mm3 (150-450); RBC Distribution Width CV 15.9 % (11.6-14.6); RBC Distribution Width SD 49.3 fl (35.1-43.9); Red Blood Count 5.11 M/mm3 (4.2-5.4)
[2021-02-13 14:18] LABS: Anion Gap 7 (5-15); BUN 10 mg/dL (7-18); BUN/Creat Ratio 13.5 RATIO (10-20); Calcium,Total 9.2 mg/dL (8.5-10.1); Chloride 104 mmol/L (98-107); Creatinine, Serum 0.74 mg/dL (0.55-1.02); EST Glomerular Filtration Rate 84 mL/min (>60); Est Glom Filt Rate - Afr Amer 102 mL/min (>60); Estimated Creatinine Clearance 62.34 ml/min; Glucose 127 mg/dL (74-106); Potassium 3.9 mmol/L (3.5-5.1); Sodium Level 136 mmol/L (136-145); Troponin-I HS 501 pg/mL (3.0-54.0)
[2021-02-13] MEDS: Nitroglycerin SL (ED/IMG/CATH) 0.4 MG TABLET SL ×3 (14:18→15:29)
[2021-02-13] MEDS: Aspirin 81 MG TAB.CHEW 324 MG PO (14:19)
[2021-02-13] MEDS: Morphine 4 MG/ML Syringe IV ×3 (14:19→20:27)
--- NOTE | 2021-02-13 14:46 | PCM.HP.STD ---
HPI - General General Date of Admission: 02/13/21 HPI Narrative TAWANA ALBERTS, is a 61 F who presents to the hospital with back pain that then transitioned into chest pain. She had a stress test about a year ago which was unremarkable. She continues to be a smoker despite having had CABG x2 in 2009. She follows with cardiology as an out is on Coreg, lipid poor, Lasix, isosorbide, lisinopril as well as aspirin. She states that this started yesterday and has since then progressed to her chest as well as continued in her back. She is also noticed that she is having some right jaw pain and bilateral arm pain. She did test positive for Covid here despite having no symptoms. She does note that she was in contact with somebody who had Covid about 10 days prior. She did get vaccinated for Covid with [employer]. She is currently asymptomatic from Covid, does not require any oxygen in the ER. Initial troponin was elevated to over 500 and EKG was not consistent with any ischemia. Chest x-ray was unremarkable. [facility] Medical History (Updated 02/13/21 @ 14:[address] Roberth Mckeon MD) Acute on chronic systolic (congestive) heart failure Acute systolic (congestive) heart failure Atherosclerosis of [place] coronary artery of [place] heart without angina pectoris Congestive heart failure Dyspnea Essential hypertension GERD (gastroesophageal reflux disease) Hypothyroidism Hypoxemia Mixed hyperlipidemia Smoker Valvular heart disease Valvular heart disease Home Medications aspirin 81 mg PO DAILY@0800 #30 tab 03/03/17 [Rx Last Taken Unknown] atorvastatin 40 mg tablet 40 mg PO QHS #90 tab 04/14/17 [Rx Last Taken Unknown] carvedilol 12.5 mg tablet 12.5 mg PO BID #180 tab 04/14/17 [Rx Last Taken Unknown] omeprazole 40 mg capsule,delayed release 40 mg PO DAILY #90 cap 04/14/17 [Rx Last Taken Unknown] furosemide 40 mg tablet 20 mg PO DAILY tab 02/23/18 [History Last Taken Unknown] isosorbide mononitrate 30 mg tablet,extended release 24 hr 15 mg PO DAILY tab 02/23/18 [History Last Taken Unknown] venlafaxine 75 mg capsule,extended release 24 hr 75 mg PO DAILY 02/23/18 [History Last Taken Unknown] levothyroxine 25 mcg tablet 25 mcg PO DAILY 07/19/19 [History Last Taken Unknown] lisinopril 40 mg tablet 40 mg PO DAILY tab 07/19/19 [History Last Taken Unknown] nitroglycerin 0.4 mg sublingual tablet 0.4 mg SUBLINGUAL ONCE #90 tab 07/19/19 [Rx Last Taken Unknown] Allergy/AdvReac Type Severity Reaction Status Date / Time No Known Allergies Allergy Verified 02/13/21 11:31 Family History Father CAD (coronary artery disease) Afib Hypertension Mother Hypertension Diabetes CAD (coronary artery disease) Son Hypertension Surgical History History of coronary artery bypass graft x 2 (~2009) Social History Smoking Status: Current some day smoker tobacco type: cigarettes alcohol intake: current alcohol intake frequency: a few times a week Alcohol type: beer substance use type: does not use caffeine: Yes Type: coffee Number of servings: 1 what type of physical activity do you participate in: walking frequency: daily duration: 15-30 minutes/day seatbelt use: always do you feel safe at home: Yes ROS Constitutional Constitutional: Denies chills, fatigue, fever(s) or malaise Eyes Eyes: Denies blurry vision ENT HEENT: Denies headache(s) or nasal discharge Cardiovascular Cardiovascular: Reports chest pain; Denies dyspnea on exertion or syncope Respiratory/Chest Respiratory/Chest: Reports cough; Denies shortness of breath at rest or shortness of breath with exertion Gastrointestinal Gastrointestinal: Denies constipation, diarrhea, nausea or vomiting Genitourinary Genitourinary: Denies dysuria Neurologic Neurologic: Denies focal weakness, numbness or tremor(s) Psychiatric Psychiatric: Denies anxiety or depression Vital Signs Vital Signs Vital Signs: 02/13/21 11:30 02/13/21 13:57 02/13/21 14:18 Temperature 97.9 F Temperature Source Temporal Pulse Rate 64 66 Respiratory Rate 18 Blood Pressure 143/68 H 176/85 H Blood Pressure Mean 93 Pulse Ox 100 Oxygen Delivery Method Room Air Room Air Weight Weight: 178 lb Body Mass Index (BMI) 32.5 Physical Exam Const alert, oriented x3 and no apparent distress General Appearance: cooperative HEENT normocephalic and moist oral mucous membranes Eyes PERRL, EOMs intact bilaterally and conjunctivae normal Neck supple and no JVD Resp normal respiratory effort, no retractions, no use of accessory muscles and clear to auscultation bilaterally Auscultation: Negative for crackles, rales, rhonchi or wheezes Cardio regular rate, regular rhythm, S1 normal heart sound, S2 normal heart sound and no murmurs GI soft to palpation, non-tender and non-distended; Negative for hepatosplenomegaly Extremity no clubbing, cyanosis or edema Skin no rashes or lesions noted Neuro no focal motor deficits and no sensory deficits noted Psych affect normal Appearance: appropriate Results Lab / Micro Data Result Diagrams: 02/13/21 13:34 02/13/21 13:34 Labs: Laboratory Results - last 24 hr 02/13/21 13:34: WBC 9.0, RBC 5.11, Hgb 14.4, Hct 43.2, MCV 84.5, MCH 28.2, MCHC 33.3, RDW Std Deviation 49.3 H, RDW Coeff of Bel 15.9 H, Plt Count 280, MPV 10.6, Immature Gran % (Auto) 0.300, Neut % (Auto) 67.7, Lymph % (Auto) 21.8, [place] % (Auto) 9.6, Eos % (Auto) 0.2, Baso % (Auto) 0.4, Absolute Neuts (auto) 6.1, Absolute Lymphs (auto) 1.97, Nucleated RBC % 0 02/13/21 13:34: Sodium 136, Potassium 3.9, Chloride 104, Carbon Dioxide 25.0, Anion Gap 7, BUN 10, Creatinine 0.74, Estim Creat Clear Calc 62.34, Est GFR (MDRD) Af Amer 102, Est GFR (MDRD) Non-Af 84, BUN/Creatinine Ratio 13.5, Glucose 127 H, Calcium 9.2, Troponin I High Sens 501 H* Micro: Microbiology 02/13/21 13:34 Interface Orders SARS-CoV-2 Antigen (Rapid) - Final SARS-CoV-2 (COVID 19) Assessment & Plan Assessment/Plan (1) Acute non-ST elevation myocardial infarction (NSTEMI): (2) COVID-19: PLAN: 1. Non-STEMI/HTN/HLD/CAD status post CABG x2 ?I will consult cardiology for heart cath ?Continue with heparin drip as well as her home blood pressure medications including Coreg, lisinopril, isosorbide ?Continue with aspirin ?We will encourage cessation of tobacco use and will not provide her with a nicotine patch while here in the hospital 2. COVID-19 ?She does not appear to be symptomatic, her cough is chronic from smoking, she is not requiring any oxygen and she is currently on room air ?She has vaccinated ?We will hold off any treatment at this time 3. Hypothyroidism ?Stable ?Continue with 4. GERD ?Stable ?Continue with PPI 5. Anxiety/depression ?Stable ?Continue with Effexor DVT: Heparin drip Charges/Coding Visit Charges Inpatient E&M: 28918 Init Hosp L3
--- NOTE | 2021-02-13 15:06 | RAD_ITS ---
EXAM: XR CHEST, 1 VIEW : 1960 CLINICAL INDICATION: chest pain TECHNIQUE: Frontal view of the chest. This report was created using [employer] report generation technology. COMPARISON: 03/01/2017 FINDINGS: LUNGS AND PLEURAL SPACES: Unremarkable. No consolidation or edema. No pneumothorax. No effusion. HEART: Unremarkable. Cardiac silhouette not enlarged. MEDIASTINUM: Central airways and mediastinal contour are unremarkable. BONES/JOINTS: Unremarkable. SOFT TISSUES: Unremarkable. RAD/Chest 1 View (Portable) IMPRESSION: No radiographic evidence of acute cardiopulmonary disease. at 1553 Reported and signed by: Brandon Mobley MD Electronically Signed: Brandon Mobley MD at 15:52 EST Tel , Service support ,
[2021-02-13 15:09] LABS: Prothrombin Time (Protime)PT. 12.5 SECONDS (11.7-14.9)
[2021-02-13 15:10] LABS: Partial Thromboplast Time 28.5 Seconds (24.1-36.2)
[2021-02-13] MEDS: Heparin Injection (Vial) 5,000 UNIT/ML VIAL 5000 UNIT IV (15:24)
[2021-02-13] MEDS: HEPARIN/D5w 25,000 UNITS 25,000 UNITS/250 ML IV.SOLN. 11 UNITS IV (15:25)
--- NOTE | 2021-02-13 16:33 | PCM.CONS.C ---
Assessment & Plan Assessment/Plan (1) Atherosclerosis of [place] coronary artery of [place] heart without angina pectoris: (2) GERD (gastroesophageal reflux disease): (3) Essential hypertension: (4) Mixed hyperlipidemia: (5) Acute non-ST elevation myocardial infarction (NSTEMI): PLAN: 61-year-old patient with no history of CAD Patient has CABG 2009 with SOLER to LAD and SVG to OM1 This presentation with symptoms of back pain and chest pain with a clinical diagnosis of culprit positive on this admission and elevated cardiac biomarker with troponin high in the range of around 509 Other medical problem include history of hypertension Hypothyroidism Mixed hyperlipidemia And also noted patient continued to smoke. EKG showed underlying normal sinus. Cardiovascular recommendation and plan; 1. Continue current medical treatment 2. Echocardiogram to evaluate her LV function 3. We will discussed the plan and need for further evaluation with cardiac catheterization, primary oil burner installer Dr. Cazares (6) COVID-19: HPI Consult Data Date of Consult: 02/15/21 HPI Narrative Reason for Consultation: CAD status post CABG 2009/NSTEMI/COVID-19 positive. HPI Narrative: TAWANA ALBERTS, is a 61 F who presents [facility] Medical History (Updated 02/13/21 @ 14:[address] Roberth Mckeon MD) Acute on chronic systolic (congestive) heart failure Acute systolic (congestive) heart failure Atherosclerosis of [place] coronary artery of [place] heart without angina pectoris Congestive heart failure Dyspnea Essential hypertension GERD (gastroesophageal reflux disease) Hypothyroidism Hypoxemia Mixed hyperlipidemia Smoker Valvular heart disease Valvular heart disease Home Medications aspirin 81 mg PO DAILY@0800 #30 tab 03/03/17 [Rx Last Taken Unknown] atorvastatin 40 mg tablet 40 mg PO QHS #90 tab 04/14/17 [Rx Last Taken Unknown] carvedilol 12.5 mg tablet 12.5 mg PO BID #180 tab 04/14/17 [Rx Last Taken Unknown] omeprazole 40 mg capsule,delayed release 40 mg PO DAILY #90 cap 04/14/17 [Rx Last Taken Unknown] furosemide 40 mg tablet 20 mg PO DAILY tab 02/23/18 [History Last Taken Unknown] isosorbide mononitrate 30 mg tablet,extended release 24 hr 15 mg PO DAILY tab 02/23/18 [History Last Taken Unknown] venlafaxine 75 mg capsule,extended release 24 hr 75 mg PO DAILY 02/23/18 [History Last Taken Unknown] levothyroxine 25 mcg tablet 25 mcg PO DAILY 07/19/19 [History Last Taken Unknown] lisinopril 40 mg tablet 40 mg PO DAILY tab 07/19/19 [History Last Taken Unknown] nitroglycerin 0.4 mg sublingual tablet 0.4 mg SUBLINGUAL ONCE #90 tab 07/19/19 [Rx Last Taken Unknown] Allergy/AdvReac Type Severity Reaction Status Date / Time No Known Allergies Allergy Verified 02/13/21 11:31 Family History Father CAD (coronary artery disease) Afib Hypertension Mother Hypertension Diabetes CAD (coronary artery disease) Son Hypertension Surgical History History of coronary artery bypass graft x 2 (~2009) Social History Smoking Status: Current some day smoker tobacco type: cigarettes alcohol intake: current alcohol intake frequency: a few times a week Alcohol type: beer substance use type: does not use caffeine: Yes Type: coffee Number of servings: 1 what type of physical activity do you participate in: walking frequency: daily duration: 15-30 minutes/day seatbelt use: always do you feel safe at home: Yes Physical Exam Narrative Physical exam was not performed in this case to minimize risk of spread of COVID-19 consultation is based on the cardiac record Current data lab test x-rays EKG teletypesetter monitor and also discussed with the medical team Risk Stratification Risk Stratification Applicable: Yes Age >/= 65: No >/= 3 CAD Risk Factors (HTN, HLD, DM, family hx of CAD, or current smoker): Yes Aspirin Use in the Past 7 Days: Yes Severe Angina (>/= episodes in 24 hours): Yes EKG ST Changes >/= 0.5mm: Yes Positive Cardiac Marker: Yes BERRY Risk Stratification Score: 5 BERRY % Risk: 25% Risk Objective Data Vital Signs: Vital Signs Temp Pulse Resp BP Pulse Ox 97.2 F L 65 20 H 149/72 H 99 02/13/21 16:18 02/13/21 16:18 02/13/21 16:18 02/13/21 16:18 02/13/21 16:18 Oxygen Flow Rate (L/min) 2 Oxygen Delivery Method Room Air Weight: 179 lb 14.355 oz Body Mass Index (BMI) 32.8 Lab / Micro Data Result Diagrams: 02/15/21 07:09 02/15/21 07:24 Labs: Laboratory Results - last 24 hr 02/13/21 13:30: PT 12.5, INR 1.0, APTT 28.5 02/13/21 13:34: WBC 9.0, RBC 5.11, Hgb 14.4, Hct 43.2, MCV 84.5, MCH 28.2, MCHC 33.3, RDW Std Deviation 49.3 H, RDW Coeff of Bel 15.9 H, Plt Count 280, MPV 10.6, Immature Gran % (Auto) 0.300, Neut % (Auto) 67.7, Lymph % (Auto) 21.8, [place] % (Auto) 9.6, Eos % (Auto) 0.2, Baso % (Auto) 0.4, Absolute Neuts (auto) 6.1, Absolute Lymphs (auto) 1.97, Nucleated RBC % 0 02/13/21 13:34: Sodium 136, Potassium 3.9, Chloride 104, Carbon Dioxide 25.0, Anion Gap 7, BUN 10, Creatinine 0.74, Estim Creat Clear Calc 62.34, Est GFR (MDRD) Af Amer 102, Est GFR (MDRD) Non-Af 84, BUN/Creatinine Ratio 13.5, Glucose 127 H, Calcium 9.2, Troponin I High Sens 501 H* Micro: Microbiology 02/13/21 13:34 Interface Orders SARS-CoV-2 Antigen (Rapid) - Final SARS-CoV-2 (COVID 19) Cardiology Labs/Tests 02/13/21 13:30: PT 12.5, INR 1.0, APTT 28.5 02/13/21 13:34: WBC 9.0, RBC 5.11, Hgb 14.4, Hct 43.2, MCV 84.5, MCH 28.2, MCHC 33.3, Plt Count 280, MPV 10.6, Immature Gran % (Auto) 0.300, Neut % (Auto) 67.7, Lymph % (Auto) 21.8, [place] % (Auto) 9.6, Eos % (Auto) 0.2, Baso % (Auto) 0.4, Absolute Neuts (auto) 6.1, Nucleated RBC % 0 02/13/21 13:34: Sodium 136, Potassium 3.9, Chloride 104, Carbon Dioxide 25.0, Anion Gap 7, BUN 10, Creatinine 0.74, Est GFR (MDRD) Af Amer 102, Est GFR (MDRD) Non-Af 84, BUN/Creatinine Ratio 13.5, Glucose 127 H, Calcium 9.2 Rhythm: EKG: ECHO: Stress Test: Cardiac Cath: PCI: CT Surgery: Holter monitor: EPS: PPM: CXR: Chest CT Scan: Radiography Diagnostic Testing: Radiology Impression Chest X-Ray 02/13/21 15:06 IMPRESSION: No radiographic evidence of acute cardiopulmonary disease. at 1553 Reported and signed by: Brandon Mobley MD Electronically Signed: Brandon Mobley MD at 15:52 EST Tel , Service support ,
--- NOTE | 2021-02-13 16:41 | ECHOCS_ITS ---
Reason For Study: Chest Pain Procedure This was a 2D Doppler, Color Flow transthoracic echocardiogram. The study was technically difficult. Contrast injection was performed. Exam performed portable in patient room. The exam was abbreviated due to the COVID 19 protocol. Left Ventricle Mildly dilated left ventricle. The estimated ejection fraction is 45-50 %. Right Ventricle Normal right ventricle. Normal systolic function. Atria The left atrium is mildly enlarged. Mitral Valve The mitral valve is structurally normal. No prolapse or stenosis seen. Tricuspid Valve Normal tricuspid valve. Aortic Valve Not well visualized. Pulmonic Valve The pulmonic valve is not well visualized. Great Vessels Calcified aortic root. Pericardium/Pleural No pericardial effusion. Medication Diluted definity 2ml given slow IV push to enhance endocardial definition. MMode/2D Measurements & Calculations LVIDd: 4.7 cm IVSd: 1.1 cm LA dimension: 4.4 cm LVIDs: 3.4 cm LVPWd: 1.00 cm FS: 28.3 % LAV(MOD-sp4): 64.3 ml LVAd ap4: 33.6 cm2 LVAd ap2: 32.1 cm2 LVLd ap4: 8.1 cm LVLd ap2: 8.2 cm EDV(MOD-sp4): 114.9 ml EDV(MOD-sp2): 103.6 ml EDV(sp4-el): 118.6 ml EDV(sp2-el): 107.1 ml LVAs ap4: 23.3 cm2 LVAs ap2: 22.0 cm2 LVLs ap4: 7.4 cm LVLs ap2: 7.1 cm ESV(MOD-sp4): 62.3 ml ESV(MOD-sp2): 57.3 ml ESV(sp4-el): 62.5 ml ESV(sp2-el): 57.5 ml EF(MOD-sp4): 45.8 % EF(MOD-sp2): 44.7 % EF(sp4-el): 47.3 % SV(MOD-sp4): 52.6 ml SV(MOD-sp2): 46.3 ml SV(sp4-el): 56.1 ml LA A4 area: 19.8 cm2 ECHO/Echo Complete W/ Contrast Interpretation Summary Mild LV systolic Dysfuncthion The estimated ejection fraction is 45-50 %. Mild LV systolic Dysfunction Ordering Physician: Mely Guillermo Referring Physician: Adeel Norman Chi Performed By: Angel Bernal RCS
--- NOTE | 2021-02-13 17:05 | CASEMGMT ---
According to the [facility] website, the following are in-network tertiary facilities: [facility], [facility], [facility], [facility], [facility], [facility], [facility], and . Renaldo ROSE CM
[2021-02-13] MEDS: 0.9% Saline Lock 10 ML Syringe IV ×3 (17:07→22:10)
[2021-02-13 17:14] LABS: Troponin-I HS 1177 pg/mL (3.0-54.0)
[2021-02-13 20:11] LABS: Troponin-I HS 2505 pg/mL (3.0-54.0)
[2021-02-13] MEDS: Carvedilol 12.5 MG Tablet PO (20:33)
[2021-02-13] MEDS: Acetaminophen 325 MG Tablet 650 MG PO (20:33)
[2021-02-13] MEDS: Atorvastatin Calcium 40 MG Tablet PO (20:33)
[2021-02-13 21:50] LABS: Partial Thromboplast Time 150.9 Seconds (24.1-36.2)
[2021-02-13] MEDS: Nitroglycerin (INPATIENT USE) 0.4 MG TAB.SUBL SL ×2 (22:10→22:16)
--- NOTE | 2021-02-13 22:15 | EKG12_ITS ---
Test Reason : AM EKG Blood Pressure : / mmHG Vent. Rate : 067 BPM Atrial Rate : 067 BPM P-R Int : 202 ms QRS Dur : 076 ms QT Int : 410 ms P-R-T Axes : 025 019 124 degrees QTc Int : 433 ms Normal sinus rhythm with sinus arrhythmia ST & T wave abnormality, consider anterolateral ischemia Abnormal ECG When compared with ECG of 13-FEB-2021 22:18, MANUAL COMPARISON REQUIRED, DATA IS UNCONFIRMED Confirmed by LEELA CALLE, MELO ([id number]), editor newspaper RODOLFO MARTIN ([id number]) on 02/17/2021 9:25:41 AM Referred By: NALINI Confirmed By:MELO SWENSON MD
--- NOTE | 2021-02-13 23:30 | PCS.PANDOC ---
PANDEMIC DOCUMENTATION INITIATED: Date: 11/03/2020 Time: 190
[2021-02-14] VITALS (13 sets, daily range): BP systolic 95–168; BP diastolic 50–99; PULSE 54–95; RESP 13–18; TEMP 35.3–37.1; O2SAT 92–100
[2021-02-14] MEDS: Morphine 4 MG/ML Syringe IV ×6 (00:06→20:37)
[2021-02-14] MEDS: 0.9% Saline Lock 10 ML Syringe IV ×6 (00:06→20:37)
[2021-02-14] MEDS: Ondansetron 4 MG/2 ML Vial IV (00:06)
[2021-02-14] MEDS: Acetaminophen 325 MG Tablet 650 MG PO ×3 (02:48→17:36)
--- NOTE | 2021-02-14 05:00 | EKG12_ITS ---
Test Reason : CP Blood Pressure : / mmHG Vent. Rate : 063 BPM Atrial Rate : 063 BPM P-R Int : 228 ms QRS Dur : 082 ms QT Int : 484 ms P-R-T Axes : 020 005 039 degrees QTc Int : 495 ms Sinus rhythm with 1st degree A-V block Nonspecific ST and T wave abnormality Abnormal ECG When compared with ECG of 13-FEB-2021 11:54, MANUAL COMPARISON REQUIRED, DATA IS UNCONFIRMED Confirmed by LEELA CALLE, MELO ([id number]), graphic editor RODOLFO MARTIN ([id number]) on 02/17/2021 9:26:11 AM Referred By: NALINI Confirmed By:MELO SWENSON MD
[2021-02-14] MEDS: Levothyroxine 25 MCG TABLET PO (06:13)
[2021-02-14] MEDS: Lisinopril 40 MG Tablet PO (06:13)
[2021-02-14] MEDS: Isosorbide Mononitrate 30 MG Tablet 15 MG PO (06:13)
[2021-02-14] MEDS: Carvedilol 12.5 MG Tablet PO ×2 (06:13→20:44)
[2021-02-14] MEDS: Aspirin E.C. 81 MG Tablet PO (06:13)
--- NOTE | 2021-02-14 06:15 | NURSING ---
AM meds given early in anticipation of probable heart cath today, per on call note.
[2021-02-14 06:36] LABS: Absolute Lymphocyte Count 1.87 X10^3/uL (0.83-4.51); Absolute Neutrophil Count 11.3 X10^3/uL (2.0-7.7); Basophil# 0.02 X10^3/uL; Basophil% 0.1 % (0-1); Hematocrit 40.9 % (37-47); Hemoglobin 13.2 g/dL (12.0-15.0); Lymphocyte # 1.87 X10^3/ul (0.83-4.51); Mean Corp Hgb Conc 32.3 g/dL (32-36); Mean Corpuscular Hgb 27.9 pg (27.0-32.0); Mean Corpuscular Volume 86.5 fL (81-99); Mean Platelet Vol. 10.3 fl (6.2-12.0); Monocyte# 1.18 X10^3/uL; Monocyte% 8.2 % (0-10); NRBC Flagged by Analyzer 0 % (0-5); Neutrophil # 11.26 X10^3/uL (2.7-7.7); Neutrophil % 78.3 % (47-70); Platelet Count 248 K/mm3 (150-450); RBC Distribution Width CV 15.9 % (11.6-14.6); RBC Distribution Width SD 50.6 fl (35.1-43.9); Red Blood Count 4.73 M/mm3 (4.2-5.4); White Blood Count 14.4 K/mm3 (4.4-11.0)
[2021-02-14 06:50] LABS: Partial Thromboplast Time 43.7 Seconds (24.1-36.2)
[2021-02-14] MEDS: Heparin Injection (Vial) 5,000 UNIT/ML VIAL IV (06:54)
[2021-02-14 06:55] LABS: Anion Gap 6 (5-15); BUN 12 mg/dL (7-18); BUN/Creat Ratio 16.7 RATIO (10-20); Calcium,Total 8.6 mg/dL (8.5-10.1); Chloride 102 mmol/L (98-107); Creatinine, Serum 0.72 mg/dL (0.55-1.02); EST Glomerular Filtration Rate 88 mL/min (>60); Est Glom Filt Rate - Afr Amer 106 mL/min (>60); Estimated Creatinine Clearance 64.07 ml/min; Glucose 136 mg/dL (74-106); Potassium 4.2 mmol/L (3.5-5.1); Sodium Level 134 mmol/L (136-145)
[2021-02-14] MEDS: Clopidogrel Bisulfate 75 MG Tablet PO ×2 (08:04)
[2021-02-14] MEDS: Venlafaxine XR 75 MG Capsule PO (08:04)
[2021-02-14] MEDS: Pantoprazole Sodium 40 MG Tablet PO (08:04)
[2021-02-14] MEDS: Nitroglycerin (INPATIENT USE) 0.4 MG TAB.SUBL SL (08:04)
--- NOTE | 2021-02-14 11:20 | CASEMGMT ---
MILTON LAURENT called patient in room for initial transition planning/care coordination assessment. MILTON LAURENT introduced self and role at [facility]. Patient is alert and oriented. Patient willing to participate in assessment and is able to answer all questions appropriately. Care providers, pharmacy, and demographics verified. Patient wishes to discharge home, denies need for home health at this time. Patient states she has no further needs or concerns at this time. CM to follow for discharge planning needs that may arise. PCP: [facility] Specialists: Debora cardiolgi Preferred Pharmacy: [facility] Insurance: [employer] Prescription Benefit: yes Living Will/HPOA: none LNOK: son Living Arrangements: Patient lives alone in a single story home with 1 step to enter. Patient states she is independent at home. Transportation: self/son DME/HHC: Patient denies DME at home, no previous HHC. MILTON LAURENT review DME over phone with patient and would like [employer]. Will monitor need for home oxygen. Disposition Plan: Patient to discharge home with family support and follow-up plans in place. Monitor for home oxygen Glenis STUBBS, RN, CM
--- NOTE | 2021-02-14 11:48 | CT_ITS ---
STUDY: CTA CHEST REASON FOR EXAM: Female, 61 years old. Chest pain, possible aortic dissection. RADIATION DOSAGE (If Supplied By Facility): CTDIvol = ( 15.69 ) mGy, DLP = ( 623.14 ) mGycm TECHNIQUE: The examination was performed with the intravenous administration of IV 100mL Isovue-370. Post-processing of the angiographic images was performed, with multiplanar reformation and 3D reconstruction. Individualized dose optimization techniques were used for this CT. COMPARISON: None. FINDINGS: Normal enhancement of the main pulmonary artery and right and left pulmonary arteries. Normal enhancement of the bilateral peripheral pulmonary arteries. There is no demonstrated pulmonary embolism. There is atherosclerotic calcification of the aortic arch. There is no demonstrated aortic dissection. Sternal cerclage wires and vascular clips are present from a prior sternotomy and coronary artery bypass graft procedure (CABG). Normal mediastinum. Normal hilar regions. Normal visualized trachea and bronchi. Linear atelectasis in the right middle lobe. Vague hazy patchy groundglass opacities could represent early infiltrates. There are no pleural effusions. Normal chest wall structures. There are mild degenerative changes of thoracic spine. The visualized upper abdomen demonstrate no acute process. CT/Chest WITH Contrast IMPRESSION: 1. No evidence of aortic dissection or pulmonary embolism. 2. Hypoventilatory and mild atelectatic changes. 3. Subtle hazy groundglass opacities could reflect early infiltrates. Electronically Signed: Corwin Melchor, at 14:14 EST Tel , Service support ,
--- NOTE | 2021-02-14 12:32 | PCM.PN.HOSP ---
Subjective Subjective Doing well, continues to have intermittent chest pain which does get relief with morphine. Her troponin is also risen to 2505 and she is now on oxygen therefore will initiate treatment for Covid Objective Data Objective Data Vital Signs: Vital Signs Temp Pulse Resp BP Pulse Ox 97.4 F L 56 L 15 127/65 H 100 02/14/21 08:10 02/14/21 10:34 02/14/21 08:10 02/14/21 10:34 02/14/21 08:10 Oxygen Flow Rate (L/min) 2 Oxygen Delivery Method Nasal Cannula Weight: 179 lb 14.355 oz Body Mass Index (BMI) 32.8 Intake & Output: Intake and Output for Last 24 Hours 02/13/21 02/14/21 02/15/21 03:59 03:59 03:59 Intake Total 432.42 / 432.42 595.33 / 595.33 Balance 432.42 / 432.42 595.33 / 595.33 Lab / Micro Data Result Diagrams: 02/14/21 06:22 02/14/21 06:22 Labs: Laboratory Results - last 24 hr 02/13/21 13:30: PT 12.5, INR 1.0, APTT 28.5 02/13/21 13:34: WBC 9.0, RBC 5.11, Hgb 14.4, Hct 43.2, MCV 84.5, MCH 28.2, MCHC 33.3, RDW Std Deviation 49.3 H, RDW Coeff of Bel 15.9 H, Plt Count 280, MPV 10.6, Immature Gran % (Auto) 0.300, Neut % (Auto) 67.7, Lymph % (Auto) 21.8, [place] % (Auto) 9.6, Eos % (Auto) 0.2, Baso % (Auto) 0.4, Absolute Neuts (auto) 6.1, Absolute Lymphs (auto) 1.97, Nucleated RBC % 0 02/13/21 13:34: Sodium 136, Potassium 3.9, Chloride 104, Carbon Dioxide 25.0, Anion Gap 7, BUN 10, Creatinine 0.74, Estim Creat Clear Calc 62.34, Est GFR (MDRD) Af Amer 102, Est GFR (MDRD) Non-Af 84, BUN/Creatinine Ratio 13.5, Glucose 127 H, Calcium 9.2, Troponin I High Sens 501 H* 02/13/21 16:35: Troponin I High Sens 1177 H* 02/13/21 19:21: Troponin I High Sens 2505 H* 02/13/21 21:15: APTT 150.9 H* 02/14/21 06:22: Sodium 134 L, Potassium 4.2, Chloride 102, Carbon Dioxide 26.0, Anion Gap 6, BUN 12, Creatinine 0.72, Estim Creat Clear Calc 64.07, Est GFR (MDRD) Af Amer 106, Est GFR (MDRD) Non-Af 88, BUN/Creatinine Ratio 16.7, Glucose 136 H, Calcium 8.6 02/14/21 06:22: WBC 14.4 H, RBC 4.73, Hgb 13.2, Hct 40.9, MCV 86.5, MCH 27.9, MCHC 32.3, RDW Std Deviation 50.6 H, RDW Coeff of Bel 15.9 H, Plt Count 248, MPV 10.3, Immature Gran % (Auto) 0.400, Neut % (Auto) 78.3 H, Lymph % (Auto) 13.0 L, [place] % (Auto) 8.2, Eos % (Auto) 0.0, Baso % (Auto) 0.1, Absolute Neuts (auto) 11.3 H, Absolute Lymphs (auto) 1.87, Nucleated RBC % 0 02/14/21 06:22: APTT 43.7 H Micro: Microbiology 02/13/21 13:34 Interface Orders SARS-CoV-2 Antigen (Rapid) - Final SARS-CoV-2 (COVID 19) Radiography Diagnostic Testing: Radiology Impression Chest X-Ray 02/13/21 15:06 IMPRESSION: No radiographic evidence of acute cardiopulmonary disease. at 1553 Reported and signed by: Brandon Mobley MD Electronically Signed: Brandon Mobley MD at 15:52 EST Tel , Service support , Physical Exam Const alert, oriented x3 and no apparent distress General Appearance: cooperative HEENT normocephalic and moist oral mucous membranes Eyes PERRL, EOMs intact bilaterally and conjunctivae normal Neck supple and no JVD Resp normal respiratory effort, no retractions and no use of accessory muscles Auscultation: crackles and diminished lung sounds; Negative for rales, rhonchi or wheezes Cardio regular rate, regular rhythm, S1 normal heart sound, S2 normal heart sound and no murmurs GI soft to palpation, non-tender and non-distended; Negative for hepatosplenomegaly Extremity no clubbing, cyanosis or edema Skin no rashes or lesions noted Neuro no focal motor deficits and no sensory deficits noted Psych affect normal Appearance: appropriate Assessment & Plan Assessment/Plan (1) Acute non-ST elevation myocardial infarction (NSTEMI): (2) COVID-19: PLAN: 1. Non-STEMI/HTN/HLD/CAD status post CABG x2 ?Appreciate cardiology recommendations, likely heart cath on Tuesday ?Continue with heparin drip as well as her home blood pressure medications including Coreg, lisinopril, isosorbide ?Continue with aspirin, start on Plavix ?We will encourage cessation of tobacco use and will not provide her with a nicotine patch while here in the hospital 2. COVID-19 ?Now she is on 2 L nasal cannula therefore we will start her on Decadron and remdesivir ?She has vaccinated 3. Hypothyroidism ?Stable ?Continue with 4. GERD ?Stable ?Continue with PPI 5. Anxiety/depression ?Stable ?Continue with Effexor DVT: Heparin drip Charges/Coding Visit Charges Inpatient E&M: 32960 Subs Hosp L2
[2021-02-14 13:39] LABS: Partial Thromboplast Time 56.1 Seconds (24.1-36.2)
--- NOTE | 2021-02-14 13:49 | PCM.PN.CARD ---
Subjective Subjective No event reported from last night Today still having mild symptoms of chest pain Objective Data Vital Signs: Vital Signs Temp Pulse Resp BP Pulse Ox 97.4 F L 56 L 15 127/65 H 100 02/14/21 08:10 02/14/21 10:34 02/14/21 08:10 02/14/21 10:34 02/14/21 08:10 Oxygen Flow Rate (L/min) 2 Oxygen Delivery Method Nasal Cannula Weight: 179 lb 14.355 oz Body Mass Index (BMI) 32.8 Intake & Output: Intake and Output for Last 24 Hours 02/12/21 02/13/21 02/14/21 23:59 23:59 23:59 Intake Total 312.42 / 432.42 715.33 / 715.33 Balance 312.42 / 432.42 715.33 / 715.33 Lab / Micro Data Result Diagrams: 02/14/21 06:22 02/14/21 06:22 Labs: Laboratory Results - last 24 hr 02/13/21 13:30: PT 12.5, INR 1.0, APTT 28.5 02/13/21 13:34: WBC 9.0, RBC 5.11, Hgb 14.4, Hct 43.2, MCV 84.5, MCH 28.2, MCHC 33.3, RDW Std Deviation 49.3 H, RDW Coeff of Bel 15.9 H, Plt Count 280, MPV 10.6, Immature Gran % (Auto) 0.300, Neut % (Auto) 67.7, Lymph % (Auto) 21.8, [place] % (Auto) 9.6, Eos % (Auto) 0.2, Baso % (Auto) 0.4, Absolute Neuts (auto) 6.1, Absolute Lymphs (auto) 1.97, Nucleated RBC % 0 02/13/21 13:34: Sodium 136, Potassium 3.9, Chloride 104, Carbon Dioxide 25.0, Anion Gap 7, BUN 10, Creatinine 0.74, Estim Creat Clear Calc 62.34, Est GFR (MDRD) Af Amer 102, Est GFR (MDRD) Non-Af 84, BUN/Creatinine Ratio 13.5, Glucose 127 H, Calcium 9.2, Troponin I High Sens 501 H* 02/13/21 16:35: Troponin I High Sens 1177 H* 02/13/21 19:21: Troponin I High Sens 2505 H* 02/13/21 21:15: APTT 150.9 H* 02/14/21 06:22: Sodium 134 L, Potassium 4.2, Chloride 102, Carbon Dioxide 26.0, Anion Gap 6, BUN 12, Creatinine 0.72, Estim Creat Clear Calc 64.07, Est GFR (MDRD) Af Amer 106, Est GFR (MDRD) Non-Af 88, BUN/Creatinine Ratio 16.7, Glucose 136 H, Calcium 8.6 02/14/21 06:22: WBC 14.4 H, RBC 4.73, Hgb 13.2, Hct 40.9, MCV 86.5, MCH 27.9, MCHC 32.3, RDW Std Deviation 50.6 H, RDW Coeff of Bel 15.9 H, Plt Count 248, MPV 10.3, Immature Gran % (Auto) 0.400, Neut % (Auto) 78.3 H, Lymph % (Auto) 13.0 L, [place] % (Auto) 8.2, Eos % (Auto) 0.0, Baso % (Auto) 0.1, Absolute Neuts (auto) 11.3 H, Absolute Lymphs (auto) 1.87, Nucleated RBC % 0 02/14/21 06:22: APTT 43.7 H 02/14/21 13:10: APTT 56.1 H Micro: Microbiology 02/13/21 13:34 Interface Orders SARS-CoV-2 Antigen (Rapid) - Final SARS-CoV-2 (COVID 19) Cardiology Labs/Tests 02/13/21 13:30: PT 12.5, INR 1.0, APTT 28.5 02/13/21 13:34: WBC 9.0, RBC 5.11, Hgb 14.4, Hct 43.2, MCV 84.5, MCH 28.2, MCHC 33.3, Plt Count 280, MPV 10.6, Immature Gran % (Auto) 0.300, Neut % (Auto) 67.7, Lymph % (Auto) 21.8, [place] % (Auto) 9.6, Eos % (Auto) 0.2, Baso % (Auto) 0.4, Absolute Neuts (auto) 6.1, Nucleated RBC % 0 02/13/21 13:34: Sodium 136, Potassium 3.9, Chloride 104, Carbon Dioxide 25.0, Anion Gap 7, BUN 10, Creatinine 0.74, Est GFR (MDRD) Af Amer 102, Est GFR (MDRD) Non-Af 84, BUN/Creatinine Ratio 13.5, Glucose 127 H, Calcium 9.2 02/13/21 21:15: APTT 150.9 H* 02/14/21 06:22: Sodium 134 L, Potassium 4.2, Chloride 102, Carbon Dioxide 26.0, Anion Gap 6, BUN 12, Creatinine 0.72, Est GFR (MDRD) Af Amer 106, Est GFR (MDRD) Non-Af 88, BUN/Creatinine Ratio 16.7, Glucose 136 H, Calcium 8.6 02/14/21 06:22: WBC 14.4 H, RBC 4.73, Hgb 13.2, Hct 40.9, MCV 86.5, MCH 27.9, MCHC 32.3, Plt Count 248, MPV 10.3, Immature Gran % (Auto) 0.400, Neut % (Auto) 78.3 H, Lymph % (Auto) 13.0 L, [place] % (Auto) 8.2, Eos % (Auto) 0.0, Baso % (Auto) 0.1, Absolute Neuts (auto) 11.3 H, Nucleated RBC % 0 02/14/21 06:22: APTT 43.7 H 02/14/21 13:10: APTT 56.1 H Rhythm: Normal sinus rhythm EKG: T wave inversion noted in V1?V2/consistent with prior septal [place], no change from 2017 EKG Radiography Diagnostic Testing: Radiology Impression Chest X-Ray 02/13/21 15:06 IMPRESSION: No radiographic evidence of acute cardiopulmonary disease. at 1553 Reported and signed by: Brandon Mobley MD Electronically Signed: Brandon Mobley MD at 15:52 EST Tel , Service support , Echocardiogram 02/13/21 16:41 Interpretation Summary Mild LV systolic Dysfuncthion The estimated ejection fraction is 45-50 %. Mild LV systolic Dysfunction Ordering Physician: Mely Guillermo Referring Physician: Adeel Norman Chi Performed By: Angel Bernal RCS Physical Exam Narrative Physical exam was not performed in this case to minimize risk of spread of COVID-19 Assessment & Plan Assessment/Plan (1) COVID-19: (2) Atherosclerosis of [place] coronary artery of [place] heart without angina pectoris: (3) GERD (gastroesophageal reflux disease): (4) Mixed hyperlipidemia: (5) Acute non-ST elevation myocardial infarction (NSTEMI): PLAN: This patient with history of CAD and aortocoronary bypass surgery Done in 2009 with SOLER to LAD and SVG to the OM1 Patient had a history of hyperlipidemia, hypertension, gastroesophageal reflux disease And diagnosed with COVID-19 pneumonia as she had symptoms of back pain and chest pain she was evaluated further with a high sensitive troponin which showed mild elevation which is trending down. Patient started on medical therapy with dual antiplatelet aspirin Plavix as well as heparin beta-terence MITCHELL inhibitor, long-acting nitrate and statin. Cardiac care plan recommendation 1. To continue current medical treatment 2. She had a mild elevation of cardiac biomarkers, will repeat echocardiogram and will follow-up clinically.
[2021-02-14] MEDS: dexAMETHasone 4 MG Tablet 6 MG PO (13:55)
[2021-02-14] MEDS: Furosemide 20 MG/2 ML VIAL IV (13:55)
[2021-02-14] MEDS: Mag Hydrox/Al Hydrox/Simeth 30 ML UDC PO (15:23)
[2021-02-14 20:08] LABS: Partial Thromboplast Time 55.7 Seconds (24.1-36.2)
[2021-02-14] MEDS: HEPARIN/D5w 25,000 UNITS 25,000 UNITS/250 ML IV.SOLN. 9 UNITS IV (20:28)
[2021-02-14] MEDS: Atorvastatin Calcium 40 MG Tablet PO (20:44)
[2021-02-15] VITALS (11 sets, daily range): BP systolic 126–153; BP diastolic 60–93; PULSE 59–76; RESP 16–18; TEMP 37–37.6; O2SAT 94–98
[2021-02-15] MEDS: 0.9% Saline Lock 10 ML Syringe IV ×7 (00:12→22:30)
[2021-02-15] MEDS: Morphine 4 MG/ML Syringe IV ×7 (00:12→22:28)
[2021-02-15] MEDS: Acetaminophen 325 MG Tablet 650 MG PO ×3 (02:29→17:52)
[2021-02-15] MEDS: Nitroglycerin (INPATIENT USE) 0.4 MG TAB.SUBL SL (06:07)
[2021-02-15] MEDS: Levothyroxine 25 MCG TABLET PO (06:08)
[2021-02-15] MEDS: guaiFENesin 10 ML UDC (200MG/10ML) PO ×2 (06:47→23:46)
[2021-02-15 07:50] LABS: Hematocrit 40.2 % (37-47); Mean Corp Hgb Conc 32.3 g/dL (32-36); Mean Corpuscular Hgb 27.1 pg (27.0-32.0); Mean Corpuscular Volume 83.9 fL (81-99); Mean Platelet Vol. 10.8 fl (6.2-12.0); Platelet Count 251 K/mm3 (150-450); RBC Distribution Width CV 15.8 % (11.6-14.6); RBC Distribution Width SD 48.1 fl (35.1-43.9); Red Blood Count 4.79 M/mm3 (4.2-5.4); White Blood Count 10.7 K/mm3 (4.4-11.0)
[2021-02-15 08:03] LABS: Partial Thromboplast Time 46.7 Seconds (24.1-36.2)
[2021-02-15 08:24] LABS: ALB/GLOB Ratio 0.7 RATIO (0.9-2.4); AST(SGOT) 176 U/L (15-37); Alanine Aminotransfer ALT/SGPT 48 U/L (13-56); Albumin, Serum 3.1 g/dL (3.2-5.0); Alkaline Phosphatase 123 U/L (45-117); Anion Gap 8 (5-15); BUN 17 mg/dL (7-18); BUN/Creat Ratio 23.4 RATIO (10-20); Calcium,Total 9.1 mg/dL (8.5-10.1); Chloride 102 mmol/L (98-107); Creatinine, Serum 0.73 mg/dL (0.55-1.02); EST Glomerular Filtration Rate 86 mL/min (>60); Est Glom Filt Rate - Afr Amer 104 mL/min (>60); Globulin 4.5 g/dL (2.2-4.2); Glucose 108 mg/dL (74-106); Potassium 3.7 mmol/L (3.5-5.1); Protein, Total 7.6 g/dL (6.4-8.2); Sodium Level 134 mmol/L (136-145)
--- NOTE | 2021-02-15 09:57 | PN.HOSP_ITS ---
Subjective Subjective Currently off of oxygen but she continues to complain about back pain. A CTA was done yesterday which did not demonstrate either PE or aortic dissection therefore this is probably pleuritic Objective Data Objective Data Vital Signs: Vital Signs Temp Pulse Resp BP Pulse Ox 98.6 F 67 18 127/74 H 97 02/15/21 06:05 02/15/21 07:00 02/15/21 06:05 02/15/21 06:12 02/15/21 06:05 Oxygen Flow Rate (L/min) 2 Oxygen Delivery Method Room Air Weight: 179 lb 14.355 oz Body Mass Index (BMI) 32.8 Intake & Output: Intake and Output for Last 24 Hours 02/14/21 02/15/21 02/16/21 03:59 03:59 03:59 Intake Total 432.42 / 432.42 1547.28 / 1547.28 226.2 / 226.2 Balance 432.42 / 432.42 1547.28 / 1547.28 226.2 / 226.2 Lab / Micro Data Result Diagrams: 02/15/21 07:09 02/15/21 07:24 Labs: Laboratory Results - last 24 hr 02/14/21 13:10: APTT 56.1 H 02/14/21 19:28: APTT 55.7 H 02/15/21 07:09: WBC 10.7, RBC 4.79, Hgb 13.0, Hct 40.2, MCV 83.9, MCH 27.1, MCHC 32.3, RDW Std Deviation 48.1 H, RDW Coeff of Bel 15.8 H, Plt Count 251, MPV 10.8 02/15/21 07:09: APTT 46.7 H 02/15/21 07:24: Sodium 134 L, Potassium 3.7, Chloride 102, Carbon Dioxide 24.0, Anion Gap 8, BUN 17, Creatinine 0.73, Estim Creat Clear Calc 63.20, Est GFR (MDRD) Af Amer 104, Est GFR (MDRD) Non-Af 86, BUN/Creatinine Ratio 23.4 H, Glucose 108 H, Calcium 9.1, Total Bilirubin 0.40, AST 176 H, ALT 48, Alkaline Phosphatase 123 H, Total Protein 7.6, Albumin 3.1 L, Globulin 4.5 H, Albumin/Globulin Ratio 0.7 L Micro: Microbiology 02/13/21 13:34 Interface Orders SARS-CoV-2 Antigen (Rapid) - Final SARS-CoV-2 (COVID 19) Radiography Diagnostic Testing: Radiology Impression Echocardiogram 02/13/21 16:41 Interpretation Summary Mild LV systolic Dysfuncthion The estimated ejection fraction is 45-50 %. Mild LV systolic Dysfunction Ordering Physician: Mely Guillermo Referring Physician: Adeel Norman Chi Performed By: Angel Bernal RCS Chest CT 02/14/21 11:48 IMPRESSION: 1. No evidence of aortic dissection or pulmonary embolism. 2. Hypoventilatory and mild atelectatic changes. 3. Subtle hazy groundglass opacities could reflect early infiltrates. Electronically Signed: Corwin Jill, at 14:14 EST Tel , Service support , Physical Exam Const alert, oriented x3 and no apparent distress General Appearance: cooperative HEENT normocephalic and moist oral mucous membranes Eyes PERRL, EOMs intact bilaterally and conjunctivae normal Neck supple and no JVD Resp normal respiratory effort, no retractions and no use of accessory muscles Auscultation: diminished lung sounds; Negative for crackles, rales, rhonchi or wheezes Cardio regular rate, regular rhythm, S1 normal heart sound, S2 normal heart sound and no murmurs GI soft to palpation, non-tender and non-distended; Negative for hepatosplenomegaly Extremity no clubbing, cyanosis or edema Skin no rashes or lesions noted Neuro no focal motor deficits and no sensory deficits noted Psych affect normal Appearance: appropriate Assessment & Plan Assessment/Plan (1) Acute non-ST elevation myocardial infarction (NSTEMI): (2) COVID-19: PLAN: 1. Non-STEMI/HTN/HLD/CAD status post CABG x2 ?Appreciate cardiology recommendations, likely heart cath on Tuesday ?Continue with heparin drip as well as her home blood pressure medications including Coreg, lisinopril, isosorbide ?Continue with her home Lasix ?Continue with aspirin, start on Plavix ?We will encourage cessation of tobacco use and will not provide her with a nicotine patch while here in the hospital 2. COVID-19 ?She was on 2 L which is why she started on Decadron and remdesivir however she also given a dose of Lasix yesterday secondary to crackles on exam and this is likely the reason why she had improvement as she is on Lasix at home. For now we will continue with the Decadron ?We will discontinue her remdesivir secondary to a rash ?She has vaccinated 3. Hypothyroidism ?Stable ?Continue with Synthroid 4. GERD ?Stable ?Continue with PPI 5. Anxiety/depression ?Stable ?Continue with Effexor DVT: Heparin drip Charges/Coding Visit Charges Inpatient E&M: 42923 Subs Hosp L2
[2021-02-15] MEDS: Ondansetron 4 MG/2 ML Vial IV (10:04)
[2021-02-15] MEDS: Aspirin E.C. 81 MG Tablet PO (10:04)
[2021-02-15] MEDS: Pantoprazole Sodium 40 MG Tablet PO (10:04)
[2021-02-15] MEDS: dexAMETHasone 4 MG Tablet 6 MG PO (10:04)
[2021-02-15] MEDS: Isosorbide Mononitrate 30 MG Tablet 15 MG PO (10:05)
[2021-02-15] MEDS: Lisinopril 40 MG Tablet PO (10:05)
[2021-02-15] MEDS: Clopidogrel Bisulfate 75 MG Tablet PO (10:05)
[2021-02-15] MEDS: Carvedilol 12.5 MG Tablet PO ×2 (10:05→21:05)
[2021-02-15] MEDS: Venlafaxine XR 75 MG Capsule PO (10:05)
[2021-02-15] MEDS: Mag Hydrox/Al Hydrox/Simeth 30 ML UDC PO (10:52)
[2021-02-15] MEDS: DiphenhydrAMINE 25 MG Capsule PO (10:52)
[2021-02-15] MEDS: Furosemide 20 MG Tablet PO (10:52)
--- NOTE | 2021-02-15 11:30 | PN.CARD_ITS ---
Subjective Subjective Discussed with the nursing staff Active symptoms of chest pain reported today Objective Data Vital Signs: Vital Signs Temp Pulse Resp BP Pulse Ox 99.0 F 70 18 142/78 H 98 02/15/21 10:00 02/15/21 10:00 02/15/21 10:00 02/15/21 10:00 02/15/21 10:00 Oxygen Flow Rate (L/min) 2 Oxygen Delivery Method Room Air Weight: 179 lb 14.355 oz Body Mass Index (BMI) 32.8 Intake & Output: Intake and Output for Last 24 Hours 02/13/21 02/14/21 02/15/21 23:59 23:59 23:59 Intake Total 312.42 / 432.42 1667.28 / 1667.28 226.2 / 226.2 Balance 312.42 / 432.42 1667.28 / 1667.28 226.2 / 226.2 Lab / Micro Data Result Diagrams: 02/15/21 07:09 02/15/21 07:24 Labs: Laboratory Results - last 24 hr 02/14/21 13:10: APTT 56.1 H 02/14/21 19:28: APTT 55.7 H 02/15/21 07:09: WBC 10.7, RBC 4.79, Hgb 13.0, Hct 40.2, MCV 83.9, MCH 27.1, MCHC 32.3, RDW Std Deviation 48.1 H, RDW Coeff of Bel 15.8 H, Plt Count 251, MPV 10.8 02/15/21 07:09: APTT 46.7 H 02/15/21 07:24: Sodium 134 L, Potassium 3.7, Chloride 102, Carbon Dioxide 24.0, Anion Gap 8, BUN 17, Creatinine 0.73, Estim Creat Clear Calc 63.20, Est GFR (MDRD) Af Amer 104, Est GFR (MDRD) Non-Af 86, BUN/Creatinine Ratio 23.4 H, Glucose 108 H, Calcium 9.1, Total Bilirubin 0.40, AST 176 H, ALT 48, Alkaline Phosphatase 123 H, Total Protein 7.6, Albumin 3.1 L, Globulin 4.5 H, Albumin/Globulin Ratio 0.7 L Cardiology Labs/Tests 02/14/21 13:10: APTT 56.1 H 02/14/21 19:28: APTT 55.7 H 02/15/21 07:09: WBC 10.7, RBC 4.79, Hgb 13.0, Hct 40.2, MCV 83.9, MCH 27.1, MCHC 32.3, Plt Count 251, MPV 10.8 02/15/21 07:09: APTT 46.7 H 02/15/21 07:24: Sodium 134 L, Potassium 3.7, Chloride 102, Carbon Dioxide 24.0, Anion Gap 8, BUN 17, Creatinine 0.73, Est GFR (MDRD) Af Amer 104, Est GFR (MDRD) Non-Af 86, BUN/Creatinine Ratio 23.4 H, Glucose 108 H, Calcium 9.1, Total Bilirubin 0.40 Rhythm: Normal sinus rhythm EKG: ST depression noted in the anterior lead Radiography Diagnostic Testing: Radiology Impression Echocardiogram 02/13/21 16:41 Interpretation Summary Mild LV systolic Dysfuncthion The estimated ejection fraction is 45-50 %. Mild LV systolic Dysfunction Ordering Physician: Mely Guillermo Referring Physician: Adeel Norman Chi Performed By: Angel Bernal RCS Chest CT 02/14/21 11:48 IMPRESSION: 1. No evidence of aortic dissection or pulmonary embolism. 2. Hypoventilatory and mild atelectatic changes. 3. Subtle hazy groundglass opacities could reflect early infiltrates. Electronically Signed: Corwin Melchor, at 14:14 EST Tel , Service support , Assessment & Plan Assessment/Plan (1) COVID-19: (2) Mixed hyperlipidemia: (3) Essential hypertension: (4) History of coronary artery bypass graft x 2: (5) Atherosclerosis of [place] coronary artery of [place] heart without angina pectoris: (6) GERD (gastroesophageal reflux disease): (7) Acute non-ST elevation myocardial infarction (NSTEMI): PLAN: 61-year-old patient complaining of back pain and chest pain Patient has a Covid [address] chest showed no evidence of aortic dissection or pulmonary embolism she had groundglass opacities which could reflect early infiltration secondary to COVID- 19. History of CAD with a coronary artery bypass graft x2 in 2009 with SOLER to LAD and SVG graft to OM1 This presentation she has clear evidence of significantly abnormal EKG and evidence of elevated cardiac biomarkers Cardiac recommendation plan; 1. We will continue medical treatment 2. Echocardiographic evaluation showed mildly reduced LV systolic function ejection fraction in the range of 45-50% 3. We will keep the patient n.p.o. from midnight/for possible evaluation by left heart catheterization..
[2021-02-15 14:12] LABS: Partial Thromboplast Time 53.7 Seconds (24.1-36.2)
[2021-02-15] MEDS: Heparin Injection (Vial) 5,000 UNIT/ML VIAL IV (14:20)
[2021-02-15] MEDS: Atorvastatin Calcium 40 MG Tablet PO (21:05)
[2021-02-15 21:14] LABS: Partial Thromboplast Time 75.4 Seconds (24.1-36.2)
[2021-02-15] MEDS: MELATONIN 3 MG TABLET PO (22:28)
[2021-02-16] MEDS: HEPARIN/D5w 25,000 UNITS 25,000 UNITS/250 ML IV.SOLN. 11 UNITS IV (02:03)
[2021-02-16] MEDS: Morphine 4 MG/ML Syringe IV ×3 (02:33→10:09)
[2021-02-16] MEDS: 0.9% Saline Lock 10 ML Syringe IV ×3 (02:35→10:09)
[2021-02-16 02:44] VITALS: BP 128/61; PULSE 88; RESP 17; TEMP 36.7; O2SAT 94
[2021-02-16 03:00] VITALS: PULSE 50
[2021-02-16 03:21] LABS: Hematocrit 38.4 % (37-47); Hemoglobin 12.8 g/dL (12.0-15.0); Mean Corp Hgb Conc 33.3 g/dL (32-36); Mean Corpuscular Hgb 27.9 pg (27.0-32.0); Mean Corpuscular Volume 83.7 fL (81-99); Mean Platelet Vol. 10.6 fl (6.2-12.0); Platelet Count 233 K/mm3 (150-450); RBC Distribution Width SD 48.7 fl (35.1-43.9); Red Blood Count 4.59 M/mm3 (4.2-5.4)
[2021-02-16 03:45] LABS: Partial Thromboplast Time 45.3 Seconds (24.1-36.2)
[2021-02-16 03:53] LABS: ALB/GLOB Ratio 0.7 RATIO (0.9-2.4); AST(SGOT) 103 U/L (15-37); Alanine Aminotransfer ALT/SGPT 39 U/L (13-56); Albumin, Serum 2.9 g/dL (3.2-5.0); Alkaline Phosphatase 113 U/L (45-117); Anion Gap 6 (5-15); BUN 20 mg/dL (7-18); BUN/Creat Ratio 26.5 RATIO (10-20); Chloride 101 mmol/L (98-107); Creatinine, Serum 0.76 mg/dL (0.55-1.02); EST Glomerular Filtration Rate 83 mL/min (>60); Est Glom Filt Rate - Afr Amer 100 mL/min (>60); Globulin 4.3 g/dL (2.2-4.2); Glucose 138 mg/dL (74-106); Potassium 3.9 mmol/L (3.5-5.1); Protein, Total 7.2 g/dL (6.4-8.2); Sodium Level 133 mmol/L (136-145)
--- NOTE | 2021-02-16 05:00 | EKG12_ITS ---
Test Reason : AM EKG Blood Pressure : / mmHG Vent. Rate : 054 BPM Atrial Rate : 054 BPM P-R Int : 194 ms QRS Dur : 096 ms QT Int : 464 ms P-R-T Axes : 013 000 108 degrees QTc Int : 440 ms Sinus bradycardia Inferior-posterior infarct , age undetermined Abnormal ECG When compared with ECG of 14-FEB-2021 05:25, MANUAL COMPARISON REQUIRED, DATA IS UNCONFIRMED Confirmed by LEELA CALLE, MELO ([id number]), assignment editor RODOLFO MARTIN ([id number]) on 02/17/2021 9:23:18 AM Referred By: DR GAYLE Confirmed By:MELO SWENSON MD
[2021-02-16] MEDS: Heparin Injection (Vial) 5,000 UNIT/ML VIAL IV (05:11)
[2021-02-16] MEDS: Isosorbide Mononitrate 30 MG Tablet 15 MG PO (06:28)
[2021-02-16] MEDS: Carvedilol 12.5 MG Tablet PO (06:28)
[2021-02-16] MEDS: Lisinopril 40 MG Tablet PO (06:29)
[2021-02-16] MEDS: Levothyroxine 25 MCG TABLET PO (06:29)
[2021-02-16] MEDS: Aspirin E.C. 81 MG Tablet PO (06:29)
[2021-02-16] MEDS: guaiFENesin 10 ML UDC (200MG/10ML) PO (06:30)
[2021-02-16 06:58] VITALS: PULSE 59
[2021-02-16 07:58] VITALS: O2SAT 92
--- NOTE | 2021-02-16 09:06 | PN.CARD_ITS ---
Subjective Subjective She notes prior to her hospitalization she had developed back discomfort which subsequently over time appeared to radiate to her chest and subsequently over time was associated with shortness of breath and dyspnea. She states she was concerned, despite having been COVID-19 vaccinated in May/June of this year, that she did develop COVID-19 but chose not to tell anyone. Based upon her symptoms she subsequently presented to the hospital for further evaluation. She was diagnosed with COVID-19 positivity on 02-13-2021. She did receive an attempt at COVID-19 therapy with remdesivir but states that she broke out into a rash and this had to be discontinued. She states since being in the hospital and receiving morphine sulfate on a scheduled basis her back discomfort is markedly improved and she feels much better overall. Objective Data Vital Signs: Vital Signs Temp Pulse Resp BP Pulse Ox 98.1 F 59 L 17 128/61 H 94 02/16/21 02:44 02/16/21 06:58 02/16/21 02:44 02/16/21 02:44 02/16/21 02:44 Oxygen Flow Rate (L/min) 2 Oxygen Delivery Method Room Air Weight: 179 lb 14.355 oz Body Mass Index (BMI) 32.8 Intake & Output: Intake and Output for Last 24 Hours 02/14/21 02/15/21 02/16/21 23:59 23:59 23:59 Intake Total 1667.28 / 1667.28 1276.54 / 1276.54 45.54 / 45.54 Output Total 150 / 150 Balance 1667.28 / 1667.28 1276.54 / 1126.54 -104.46 / -104.46 Lab / Micro Data Result Diagrams: 02/16/21 02:58 02/16/21 02:58 Labs: Laboratory Results - last 24 hr 02/15/21 13:55: APTT 53.7 H 02/15/21 20:40: APTT 75.4 H 02/16/21 02:58: WBC 13.0 H, RBC 4.59, Hgb 12.8, Hct 38.4, MCV 83.7, MCH 27.9, MCHC 33.3, RDW Std Deviation 48.7 H, RDW Coeff of Bel 16.0 H, Plt Count 233, MPV 10.6 02/16/21 02:58: Sodium 133 L, Potassium 3.9, Chloride 101, Carbon Dioxide 26.0, Anion Gap 6, BUN 20 H, Creatinine 0.76, Estim Creat Clear Calc 60.70, Est GFR (MDRD) Af Amer 100, Est GFR (MDRD) Non-Af 83, BUN/Creatinine Ratio 26.5 H, Glucose 138 H, Calcium 9.0, Total Bilirubin 0.40, AST 103 H, ALT 39, Alkaline Phosphatase 113, Total Protein 7.2, Albumin 2.9 L, Globulin 4.3 H, Al bumin/Globulin Ratio 0.7 L 02/16/21 02:58: APTT 45.3 H Cardiology Labs/Tests 02/15/21 13:55: APTT 53.7 H 02/15/21 20:40: APTT 75.4 H 02/16/21 02:58: WBC 13.0 H, RBC 4.59, Hgb 12.8, Hct 38.4, MCV 83.7, MCH 27.9, MCHC 33.3, Plt Count 233, MPV 10.6 02/16/21 02:58: Sodium 133 L, Potassium 3.9, Chloride 101, Carbon Dioxide 26.0, Anion Gap 6, BUN 20 H, Creatinine 0.76, Est GFR (MDRD) Af Amer 100, Est GFR (MDRD) Non-Af 83, BUN/Creatinine Ratio 26.5 H, Glucose 138 H, Calcium 9.0, Total Bilirubin 0.40 02/16/21 02:58: APTT 45.3 H Rhythm: Sinus rhythm EKG: Sinus rhythm; incomplete right bundle branch block; inferior [place]V of indeterminate age cannot be excluded; nonspecific ST/T wave abnormality; compared to the previous ECG and remote ECGs the ST/T wave abnormality appears to be less prominent ECHO: 02-13-2021 Interpretation Summary Mild LV systolic Dysfuncthion The estimated ejection fraction is 45-50 %. Mild LV systolic Dysfunction Stress Test: Stress Test Report Date: Procedure: Pharmacologic stress nuclear imaging study Indications: Chest discomfort; shortness of breath/dyspnea; CAD; status post CABG; CHF; valvular heart disease Consent: Per the patient Procedure: The patient underwent pharmacologic (Regadenoson) evaluation with a peak heart rate of 114 beats per minute (71 %predicted maximal heart rate) and a peak blood pressure of 166/90 mmHg. The baseline ECG demonstrated normal sinus rhythm. The peak pharmacologic ECG demonstrated no obvious ECG changes. There were no cardiac dysrhythmias pretest, during pharmacologic infusion, or recovery. There was no complaint of chest discomfort during pharmacologic infusion or recovery. The examination was discontinued secondary to completion of protocol. Impression: 1. Pharmacologic (Regadenoson) evaluation 2. Peak pharmacologic ECG with no obvious ECG changes. 3. There were no cardiac dysrhythmias pretest, during pharmacologic infusion, or recovery. 4. Nuclear images pending Myocardial perfusion imaging study: Technique: The patient was injected with 15.0 millicuries of technetium 99m Cardiolite and subsequently rest SPECT Cardiolite nuclear imaging was obtained in the horizontal long, vertical long, and short axis views. The patient underwent pharmacologic (Regadenoson) evaluation with a peak heart rate of 114 beats per minute (71 % percent predicted maximal heart rate) and a peak blood pressure of 166/90 mmHg. The patient was injected with 45.0 millicuries of technetium 99m Cardiolite and subsequently stress SPECT Cardiolite nuclear imaging was obtained in the horizontal long, vertical long, and short axis views. A gated Cardiolite study at peak stress was obtained. Interpretation: Rest and stress SPECT Cardiolite nuclear imaging status post realignment, normalization, and attenuation correction demonstrate the appearance of subtle diminished tracer uptake in the apical areas without significant change between rest and stress. There is end systolic thickening and brightening. The gated Cardiolite study demonstrates myocardial thickening and inward wall motion. The reported LVEF is 67 %. Impression: 1. Rest and stress SPECT Cardiolite nuclear imaging demonstrate myocardial perfusion changes compatible with physiologic apical thinning with no myocardial perfusion changes considered diagnostic for associated stress-induced myocardial ischemia. 2. The gated Cardiolite study reports an LVEF of 67 %. Cardiac Cath: 03-02-2017 Elevated left ventricular end-diastolic pressure Segmental LV systolic dysfunction-mild LVEF: 50% [place] multivessel CAD SOLER to the LAD: Patent SVG to first OM: Patent Mitral valve insufficiency: Moderate Left main: Normal LAD: Proximal 85% stenosis Mid LAD: Subtotal occlusion-filling from competitive flow-predominantly SOLER graft flow with no angiographically significant disease distal to the graft attachment Diagonal 1: Proximal-mild luminal irregularities LCx: Mild luminal irregularities Distal LCx: 50% stenosis OM1: Proximal-occluded and fills from the SVG graft with no angiographically significant disease distal to the graft attachment RCA: Mild luminal irregularities Chest CT Scan: IMPRESSION: 1. No evidence of aortic dissection or pulmonary embolism. 2. Hypoventilatory and mild atelectatic changes. 3. Subtle hazy groundglass opacities could reflect early infiltrates. Electronically Signed: Corwin Melchor, at 14:14 EST Physical Exam Const alert, oriented x3 and no apparent distress Orientation / Consciousness: awake HEENT normocephalic, head/scalp atraumatic and hearing grossly normal bilaterally Eyes PERRL, EOMs intact bilaterally and conjunctivae normal Neck full ROM, supple and no JVD Resp Auscultation: diminished lung sounds bilateral lower Cardio regular rate, regular rhythm, S1 normal heart sound and S2 normal heart sound GI normal to inspection, nondistended, normoactive bowel sounds Extremity no pedal edema Skin no rashes or lesions noted Psych mental status grossly normal Assessment & Plan Assessment/Plan (1) Acute non-ST elevation myocardial infarction (NSTEMI): PLAN: The patient has cardiac enzyme findings compatible with an acute non-ST segment elevation [place]. At the present time it is unclear whether this is an acute coronary syndrome type I event versus being a type II event brought out by her noncardiac issues with her COVID-19 positivity. The patient is being monitored. She has undergone noninvasive valuation as noted. She is continuing medical therapy. At the present time it may not be unreasonable to continue her medical management, noting that she has had symptomatic improvement, and hold on proceeding with diagnostic cardiac catheterization, barring a change in her clinical course, until her COVID-19 positivity state/isolation, etc., has been resolved, in an attempt to minimize the exposure of additional medical staff to her COVID-19 positive state. (2) Atherosclerosis of [place] coronary artery of [place] heart without angina pectoris: PLAN: The patient does have a history of underlying CAD. At the moment her symptoms are concerning as to whether they are CAD versus non- CAD and related to her COVID-19 positive state. She will continue conservative medical management at this time. Over time as her clinical course permits consideration will be given to further evaluation in the cardiac catheterization laboratory. (3) History of coronary artery bypass graft x 2: PLAN: The patient has a history of CABG. She has undergone previous noninvasive and invasive evaluation as described. Based upon her last invasive valuation her SOLER graft to the LAD and her SVG graft to the OM were patent. Since that time she has undergone noninvasive valuation with a pharmacologic stress nuclear imaging study which did not suggest ongoing myocardial ischemia. The patient at this time continues evaluation for concerns of her abnormal cardiac enzymes concerning for non-ST segment elevation [place] in the mid of a COVID-19 positive state. (4) Valvular heart disease: PLAN: The patient does have an element of mitral valve regurgitation. She will continue evaluation care as deemed appropriate. (5) Mixed hyperlipidemia: PLAN: The patient will continue risk factor modification/medical therapy as deemed appropriate. (6) Essential hypertension: PLAN: The patient should continue medical management (7) COVID-19: PLAN: The patient was attempted on medical therapy with remdesivir. She apparently did not tolerate it secondary to a rash. Her case was discussed with the [facility] hospitalist group. Consideration will be given, after their evaluation, as to whether or not the patient requires infectious disease consultation to assist with her COVID-19 care and timing of isolation and timing of further cardiovascular procedures including invasive cardiovascular procedures. Addt'l Comments This note was generated using a voice recognition system and there may be incorrect words, spelling or punctuation that were not noted when reviewing the office note prior to saving. Procedure Criteria Type of Procedure Procedure Type: Elective Elective Risks - COVID COVID Risk Discussion: The surgeon/proceduralist and patient have discussed in detail the risk of exposure to and/or potential harm posed by the COVID-19 virus with having a surgery/procedure at this time versus the risk of delaying the surgery/procedure. It is not possible to know either the risk of delaying the surgery or procedure or chance of getting an infection with perfect accuracy, but a joint decision was made between the patient and the surgeon/proceduralist to proceed at this time with the scheduled surgery/procedure as indicated on the consent form.
[2021-02-16 10:01] VITALS: BP 126/60; PULSE 63; RESP 14; TEMP 36.7; O2SAT 95
[2021-02-16] MEDS: Furosemide 20 MG Tablet PO (10:05)
[2021-02-16] MEDS: Pantoprazole Sodium 40 MG Tablet PO (10:05)
[2021-02-16] MEDS: Venlafaxine XR 75 MG Capsule PO (10:05)
[2021-02-16] MEDS: Clopidogrel Bisulfate 75 MG Tablet PO (10:05)
[2021-02-16] MEDS: dexAMETHasone 4 MG Tablet 6 MG PO (10:05)
[2021-02-16] MEDS: Acetaminophen 325 MG Tablet 650 MG PO (10:06)
--- NOTE | 2021-02-16 10:32 | DCINST_ITS ---
Discharge Instructions Diet Discharge Diet: No restrictions Activity Discharge Activity: Return to Normal Activity (No exercising) Follow Up Care Test Results: Test results from this visit will be discussed in further detail at your follow-up appointment, if applicable. Discharge Plan Admission Admit Date/Time: 02/13/21 14:40 Primary Reason for Your Visit: Acute non-ST elevation myocardial infarction Attending Provider: Richmond Castillo Primary Care Provider: Adeel Norman Chi Consulting Providers: Mely Guillermo Instructions Additional Instructions / Restrictions: Contact Dr. Norman's office to get set up for monoclonal antibody infusion for Covid Quarantine until February 19, 2021-unless you are going to be receiving monoclonal antibody, you may leave your home for this infusion if it can be set up before February 19, 2021 Do not take ibuprofen or Aleve while you are taking Clopidogrel, use only Tylenol or [place] 5/325 for pain Discharge Orders/Prescriptions Prescriptions: New clopidogrel 75 mg Tablet 75 mg PO DAILY Qty: 30 RF: 0 hydrocodone-acetaminophen 5-325 mg tablet 1 tab PO Q4H PRN (Reason: pain) 7 Days Qty: 10 RF: 0 Continued carvedilol 12.5 MG tablet 12.5 mg PO BID Qty: 180 RF: 3 omeprazole 40 MG capsule,delayed release(DR/EC) 40 mg PO DAILY Qty: 90 RF: 3 furosemide 40 mg tablet 20 mg PO DAILY RF: 0 venlafaxine [Effexor XR] 75 mg capsule,extended release 24hr 75 mg PO DAILY RF: 0 lisinopril 40 mg tablet 40 mg PO DAILY RF: 0 levothyroxine 25 mcg tablet 25 mcg PO DAILY RF: 0 nitroglycerin 0.4 mg tablet, sublingual 0.4 mg SUBLINGUAL ONCE Qty: 90 RF: 3 aspirin 81 MG tablet 81 mg PO DAILY@0800 Qty: 30 RF: 0 Changed atorvastatin 40 MG tablet 80 mg PO QHS Qty: 90 RF: 3 isosorbide mononitrate 30 mg tablet extended release 24 hr 30 mg PO DAILY Qty: 0 RF: 0 Referrals / Follow Up: Liam Cazares MD [STAFF PHYSICIAN] - See Referral Note (Dr. Cazares's office will contact you regarding setting you up for an outpatient cardiac catheterization, if you have not heard from them by February 17 2021, call his office on that afternoon) Adeel Norman Chi, MD [Primary Care Provider] - Within 2 Weeks Disposition Disposition (needs filled in before D/C Order can be placed): Home, Self Care
--- NOTE | 2021-02-16 10:45 | PCM.DC.SUM ---
Providers Date of Admission: 02/13/21 Date of Discharge: 02/16/21 Primary Care Physician: Dr. Adeel Norman MD Consultations 02/13/21 16:06 Consult: Cardiology Routine Consulting Provider: Mely Guillermo Reason for Consult: NSTEMI EMERGENT Consult: No MD Notified: Yes Date Notified: 02/13/21 Time Notified: 14:45 Method of Notification: Verbal Reason For Visit: NON-STEMI Diagnosis Discharge Diagnosis (1) Acute non-ST elevation myocardial infarction (NSTEMI): Status: Acute Code(s): I21.4 - Non-ST elevation (NSTEMI) myocardial infarction (2) Atherosclerosis of [place] coronary artery of [place] heart without angina pectoris: Status: Chronic Code(s): I25.10 - Atherosclerotic heart disease of [place] coronary artery without angina pectoris (3) History of coronary artery bypass graft x 2: Status: Chronic Code(s): Z95.1 - Presence of aortocoronary bypass graft (4) Valvular heart disease: Status: Chronic Code(s): I38 - Endocarditis, valve unspecified (5) Mixed hyperlipidemia: Status: Chronic Code(s): E78.2 - Mixed hyperlipidemia (6) Essential hypertension: Status: Chronic Code(s): I10 - Essential (primary) hypertension (7) COVID-19: Status: Acute Code(s): U07.1 - COVID-19 Plan: 1. Non-ST elevation myocardial infarction type II #2 COVID-19 pneumonia #3 acute hypoxic respiratory failure secondary to COVID-19 pneumonia #4 hypothyroidism #5 GERD Medications at Discharge Home Medications aspirin 81 mg PO DAILY@0800 #30 tab 03/03/17 carvedilol 12.5 mg tablet 12.5 mg PO BID #180 tab 04/14/17 omeprazole 40 mg capsule,delayed release 40 mg PO DAILY #90 cap 04/14/17 furosemide 40 mg tablet 20 mg PO DAILY tab 02/23/18 venlafaxine 75 mg capsule,extended release 24 hr 75 mg PO DAILY 02/23/18 levothyroxine 25 mcg tablet 25 mcg PO DAILY 07/19/19 lisinopril 40 mg tablet 40 mg PO DAILY tab 07/19/19 nitroglycerin 0.4 mg sublingual tablet 0.4 mg SUBLINGUAL ONCE #90 tab 07/19/19 atorvastatin 80 mg PO QHS #90 tab 02/16/21 clopidogrel 75 mg PO DAILY #30 tab 02/16/21 hydrocodone-acetaminophen 1 tab PO Q4H PRN 7 Days #10 tab 02/16/21 isosorbide mononitrate 30 mg PO DAILY #0 tab 02/16/21 Hospital Course Operations None Procedures 2-D Echocardiogram Summary of Care Provided Minutes Spent on Discharge: 32 Hospital Course: This 61-year-old white female was seen in the emergency room at [facility] with a chief complaint of chest pain involving her entire chest. She also complained of difficulty breathing, patient had a history of coronary artery disease and had a to a coronary artery bypass done in the past. Patient stated that she had contact with someone 10 days ago that had COVID-19, she had been vaccinated prior. Lab done in the emergency room included a troponin which was elevated at 500, EKG did not show any acute changes, Covid test which was done in the emergency room was positive. Patient's case was discussed with cardiology, she was started on a heparin drip and admitted to PCU, she was placed on IV dexamethasone and remdesivir, patient developed a rash while on remdesivir and this was discontinued.. Echocardiogram was obtained which showed an ejection fraction of 45 to 50%, due to her positive COVID-19 test, it was felt that the patient would not be suitable for a cardiac catheterization. It was elected to treat her medically for her non-STEMI. Patient improved during her hospitalization, her oxygen was weaned off at the time of discharge. On 02/16/2021, patient was seen and examined: On examination she appeared in good health and spirits, she does not appear to be in any distress. Vital signs as documented. Skin warm and dry and without overt rashes. Neck without JVD, thyroid appears normal, trachea is midline, neck is supple. Lungs clear, normal air movement was noted. Heart exam notable for regular rhythm, normal sounds and absence of murmurs, rubs or gallops. Abdomen unremarkable and without evidence of organomegaly, masses, or abdominal aortic enlargement, bowel sounds are present in all 4 quadrants, no abdominal tenderness was noted. Extremities nonedematous, no cyanosis was noted, no clubbing was noted. Neuro: Cranial nerves II through XII are grossly intact, no focal motor deficits were noted, sensation to light touch and pinprick is intact, motor exam 5/5 throughout. Psych: Patient is alert and oriented x3, she does not appear anxious or depressed, she does not appear agitated. On 02/16/2021, patient was seen and examined and felt to be stable for discharge home. Weight / BMI Weight Weight: 81.6 kg Body Mass Index (BMI) 32.8 ABG / Lab / Microbiology Data Result Diagrams: 02/16/21 02:58 02/16/21 02:58 Laboratory: Laboratory Results - last 24 hr 02/15/21 13:55: APTT 53.7 H 02/15/21 20:40: APTT 75.4 H 02/16/21 02:58: WBC 13.0 H, RBC 4.59, Hgb 12.8, Hct 38.4, MCV 83.7, MCH 27.9, MCHC 33.3, RDW Std Deviation 48.7 H, RDW Coeff of Bel 16.0 H, Plt Count 233, MPV 10.6 02/16/21 02:58: Sodium 133 L, Potassium 3.9, Chloride 101, Carbon Dioxide 26.0, Anion Gap 6, BUN 20 H, Creatinine 0.76, Estim Creat Clear Calc 60.70, Est GFR (MDRD) Af Amer 100, Est GFR (MDRD) Non-Af 83, BUN/Creatinine Ratio 26.5 H, Glucose 138 H, Calcium 9.0, Total Bilirubin 0.40, AST 103 H, ALT 39, Alkaline Phosphatase 113, Total Protein 7.2, Albumin 2.9 L, Globulin 4.3 H, Albumin/Globulin Ratio 0.7 L 02/16/21 02:58: APTT 45.3 H Microbiology: Microbiology 02/13/21 13:34 Interface Orders SARS-CoV-2 Antigen (Rapid) - Final SARS-CoV-2 (COVID 19) D/C Instructions Discharge Diet: No restrictions Meaningful Use Info Meaningful Use Diagnoses (Choose all that apply): AMI AMI/Post PCI/Angioplasty Aspirin given w/in 24hrs of arrival?: Yes ASA at discharge?: Yes Antiplatelet Therapy at Discharge:: Yes Statins at discharge?: Yes [place]/ARB at discharge?: Yes Beta Maxx at discharge?: Yes Done w/ Acute MS measure.: Yes Documented LVEF (%): 45 Discharge Plan Admission Admit Date/Time: 02/13/21 14:40 Primary Reason for Your Visit: Acute non-ST elevation myocardial infarction Attending Provider: Richmond Castillo Primary Care Provider: Adeel Norman Chi Consulting Providers: Mely Guillermo Instructions Additional Instructions / Restrictions: Contact Dr. Norman's office to get set up for monoclonal antibody infusion for Covid Quarantine until February 19, 2021-unless you are going to be receiving monoclonal antibody, you may leave your home for this infusion if it can be set up before February 19, 2021 Do not take ibuprofen or Aleve while you are taking Clopidogrel, use only Tylenol or [place] 5/325 for pain Discharge Orders/Prescriptions Prescriptions: New clopidogrel 75 mg Tablet 75 mg PO DAILY Qty: 30 RF: 0 hydrocodone-acetaminophen 5-325 mg tablet 1 tab PO Q4H PRN (Reason: pain) 7 Days Qty: 10 RF: 0 Continued carvedilol 12.5 MG tablet 12.5 mg PO BID Qty: 180 RF: 3 omeprazole 40 MG capsule,delayed release(DR/EC) 40 mg PO DAILY Qty: 90 RF: 3 furosemide 40 mg tablet 20 mg PO DAILY RF: 0 venlafaxine [Effexor XR] 75 mg capsule,extended release 24hr 75 mg PO DAILY RF: 0 lisinopril 40 mg tablet 40 mg PO DAILY RF: 0 levothyroxine 25 mcg tablet 25 mcg PO DAILY RF: 0 nitroglycerin 0.4 mg tablet, sublingual 0.4 mg SUBLINGUAL ONCE Qty: 90 RF: 3 aspirin 81 MG tablet 81 mg PO DAILY@0800 Qty: 30 RF: 0 Changed atorvastatin 40 MG tablet 80 mg PO QHS Qty: 90 RF: 3 isosorbide mononitrate 30 mg tablet extended release 24 hr 30 mg PO DAILY Qty: 0 RF: 0 Referrals / Follow Up: Liam Cazares MD [STAFF PHYSICIAN] - See Referral Note (Dr. Cazares's office will contact you regarding setting you up for an outpatient cardiac catheterization, if you have not heard from them by February 17 2021, call his office on that afternoon) Adeel Norman Chi, MD [Primary Care Provider] - 02/18/21 11:20 am Disposition Disposition (needs filled in before D/C Order can be placed): Home, Self Care Charges/Coding Visit Charges Inpatient E&M: 96296 Disch Hosp
[2021-02-16 11:24] LABS: Partial Thromboplast Time 46.7 Seconds (24.1-36.2)
[2021-02-16 12:27] VITALS: O2SAT 92; O2SAT 94
--- NOTE | 2021-02-16 12:27 | CASEMGMT ---
Per Radha, pt does not qualify for home oxygen with exertion at this time. Pt ready for discharge and voices no further questions/concerns/needs. SStapril ROSE CM
== END 2021-02-16 12:38 | disposition home or self-care (01) | DRG 280 ==
LOC: ED 14:30 → PCU 15:10
PROVIDERS: Internal Medicine Interventional Cardiology; Admitting Provider Family Medicine; Emergency Provider Emergency Medicine; PCP Family Medicine Geriatric Medicine; Visit Provider Internal Medicine
DX: I25.10 Atherosclerotic heart disease of native coronary artery without angina pectoris (principal); I21.A1 Myocardial infarction type 2; U07.1 COVID-19; I50.23 Acute on chronic systolic (congestive) heart failure; J12.82 Pneumonia due to coronavirus disease 2019; J96.01 Acute respiratory failure with hypoxia; I38 Endocarditis, valve unspecified; I11.0 Hypertensive heart disease with heart failure; I34.0 Nonrheumatic mitral (valve) insufficiency; E78.2 Mixed hyperlipidemia; E03.9 Hypothyroidism, unspecified; K21.9 Gastro-esophageal reflux disease without esophagitis; L27.0 Generalized skin eruption due to drugs and medicaments taken internally; T37.5X5A Adverse effect of antiviral drugs, initial encounter; Y92.230 Patient room in hospital as the place of occurrence of the external cause; F32.A Depression, unspecified; F41.9 Anxiety disorder, unspecified; F17.210 Nicotine dependence, cigarettes, uncomplicated; Z95.1 Presence of aortocoronary bypass graft; Z79.82 Long term (current) use of aspirin; Z79.02 Long term (current) use of antithrombotics/antiplatelets; Z79.899 Other long term (current) drug therapy
CPT/HCPCS: 36415; 71045; 71260; 80048; 80053; 84484; 85025; 85027; 85610; 85730; 87426; 93005; 93306; 99285; 99406; J7040; J7050; Q9957; Q9967; A4216; C8929; J1940; J2405; J3490

== ENCOUNTER 2021-02-17 11:16 | Outpatient (CLI) | payer OTHER, SELFPAY ==
[2021-02-17 11:45] VITALS: BP 102/55; PULSE 66; RESP 16; TEMP 36.7; O2SAT 99; BMI 30.9
[2021-02-17] MEDS: 0.9% Saline Lock 10 ML Syringe IV (11:52)
[2021-02-17 12:24] VITALS: BP 108/42; PULSE 58; RESP 16; TEMP 36.6; O2SAT 97
[2021-02-17 13:16] VITALS: BP 112/53; PULSE 71; RESP 16; TEMP 36.2; O2SAT 98
== END 2021-02-17 13:24 | disposition home or self-care (01) ==
LOC: MS3OUT 11:16 → MS3 11:17
PROVIDERS: PCP Family Medicine Geriatric Medicine; Referring Provider Nurse Practitioner Adult Health; Visit Provider Nurse Practitioner Adult Health
DX: Z23 Encounter for immunization (principal); U07.1 COVID-19
CPT/HCPCS: J7050; M0245; Q0245; A4216

== ENCOUNTER 2021-02-27 07:17 | Day surgery (SDC) | payer OTHER, SELFPAY ==
[2021-02-26 09:20] VITALS: BMI 32.8
--- NOTE | 2021-02-26 19:18 | PCM.HP.BLA ---
History and Physical Date of Admission: 02/27/21 [facility] [id number] [place], [place] [phone] OFFICE VISITDate of Service: 02/24/21 MR#:[id number]:[id number]: TAWANA ALBERTS [facility] #:[id number]:[id number] Provider: ANTOINE Dexter RoofAge/Sex: 61/F [facility] HPI HPI History of Present Illness Surgical H&P: Yes Details: TAWANA ALBERTS, is a 61 F who presents to the office today for a cardiovascular outpatient follow-up. Patient has history of coronary artery disease status post bypass surgery with a SOLER to LAD and SVG to OM1 in 2009. Patient presented to [facility] in February 2017 with increasing shortness of breath. Emergency department evaluation revealed pulmonary congestion. She was admitted and diuresed. She underwent a diagnostic heart catheterization which showed an estimated ejection fraction of 50% and patent bypass grafts. Echocardiogram showed estimated ejection of 45%, moderate mitral valve insufficiency, moderate tricuspid valve insufficiency, and an RVSP of 31 mmHg. Patient was ultimately discharged home. Patient was seen at [facility] in January 2021 for non-ST elevated myocardial infarction. It was unclear if this was a type I event versus type II event in the setting of COVID-19 positive. She was treated medically with plans to address non-ST elevated myocardial infarction with heart catheterization on an outpatient basis once she has completed her COVID-19 quarantine. Her echocardiogram at such time showed ejection fraction of 45-50%. She also has a history of hypertension and hyperlipidemia. She continues to monitor left sided, sharp chest pain that occurs daily at rest. This has improved with nitroglycerin. This comes and goes and lasts upwards to an hour. She acknowledges a similar sensation prior to bypass surgery. She acknowledges shortness of breath activity. She feels that this is worsening since discharge. She acknowledges productive cough. She acknowledges generalized fatigue and weakness. She states feeling lightheaded when standing up. She denies dizziness, near-syncope, or syncope. 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: No Accompanied by: None Is patient in pain?: No Allergies No Known Allergies Allergy (Verified 02/24/21 13:54) Medications aspirin 81 mg PO DAILY@0800 #30 tab 03/03/17 [Rx Confirmed 02/24/21] carvedilol 12.5 mg tablet 12.5 mg PO BID #180 tab 04/14/17 [Rx Confirmed 02/24/21] omeprazole 40 mg capsule,delayed release 40 mg PO DAILY #90 cap 04/14/17 [Rx Confirmed 02/24/21] venlafaxine 75 mg capsule,extended release 24 hr 75 mg PO DAILY 02/23/18 [History Confirmed 02/24/21] levothyroxine 25 mcg tablet 25 mcg PO DAILY 07/19/19 [History Confirmed 02/24/21] lisinopril 40 mg tablet 40 mg PO DAILY tab 07/19/19 [History Confirmed 02/24/21] atorvastatin 80 mg PO QHS #90 tab 02/16/21 [Rx Confirmed 02/24/21] clopidogrel 75 mg PO DAILY #30 tab 02/16/21 [Rx Confirmed 02/24/21] isosorbide mononitrate 30 mg PO DAILY #0 tab 02/16/21 [Rx Confirmed 02/24/21] cyclobenzaprine 10 mg tablet 10 mg PO Q8H PRN tab 02/24/21 [History Confirmed 02/24/21] dexamethasone 6 mg tablet 6 mg PO DAILY tab 02/24/21 [History Confirmed 02/24/21] doxycycline hyclate 100 mg tablet 100 mg PO BID tab 02/24/21 [History Confirmed 02/24/21] furosemide 40 mg tablet 40 mg PO DAILY tab 02/24/21 [History Confirmed 02/24/21] nitroglycerin 0.4 mg sublingual tablet 0.4 mg SUBLINGUAL Q5-15M PRN tab 02/24/21 [History] ondansetron 4 mg disintegrating tablet 4 mg PO Q8H PRN tab 02/24/21 [History Confirmed 02/24/21] Ejection fraction %: 45 to 49 PFSH Medical History Acute on chronic systolic (congestive) heart failure Acute systolic (congestive) heart failure Atherosclerosis of yuhaaviatam coronary artery of yuhaaviatam heart without angina pectoris Chest pain Congestive heart failure Dyspnea Essential hypertension GERD (gastroesophageal reflux disease) Hypothyroidism Hypoxemia Mixed hyperlipidemia Smoker Valvular heart disease Valvular heart disease Surgical History History of appendectomy History of cholecystectomy History of coronary artery bypass graft x 2 (~2009) History of hysterectomy History of open reduction and internal fixation (ORIF) procedure Family History Father CAD (coronary artery disease) Afib Hypertension Mother Hypertension Diabetes CAD (coronary artery disease) Son Hypertension Social History Smoking Status: Light Smoker (<10/day) alcohol intake: current alcohol intake frequency: 3 or more drinks per day Alcohol type: beer substance use type: does not use caffeine: Yes Type: coffee Number of servings: 1 what type of physical activity do you participate in: walking frequency: daily duration: 15-30 minutes/day seatbelt use: always do you feel safe at home: Yes ROS Const Const: Positive for fatigue and weakness; Negative for headache(s), frequent falls, difficulty sleeping or excessive sweating Eyes Eyes: Negative for loss of peripheral vision, transient loss of vision, blurry vision, double vision or tunnel vision ENT ENT: Negative for headache(s), dizziness, Nosebleed/epistaxis or balance problems Cardio Chest Pain: Yes Frequency: daily Character: sharp Onset: at rest Location: left chest Duration: hours (Comes and goes for about an hour unless she takes nitro) Relieving: other (nitroglycerin X 2 per episode) Palpitations: No Edema: None Muscle aches with walking: None Resp Respiratory: Positive for SOB with activity and Cough (Moist cough, brownish yellow sputum); Negative for SOB at rest, SOB orthopnea\SOB lying down or paroxysmal nocturnal dyspnea GI GI: Negative nausea, vomiting, heartburn or black,tarry stools : Negative for hematuria Musc Musc: Negative for muscle aches/ myalgia, muscle weakness, joint pain or balance problems Skin Skin: Negative non-healing lesions, rash or unusual bruising Neuro Neuro: Positive for lightheadedness (When first standing up) and weakness; Negative for dizziness, near syncope, syncope, frequent falls, headache(s), blurry vision, double vision or lack of coordination [place] Hematologic/Lymphatic: Negative for easy bleeding or easy bruising Endo Endo: Positive for fatigue; Negative for excessive sweating or increased thirst/drinking Psych Psych: Negative for anxiety or depression Allergy Allergy/Immunology: Negative for hives and Negative for rash Cardiology Exam Const Appearance: cooperative, healthy appearing, comfortable and no acute distress Nutritional Appearance: well nourished and obese Orientation: alert, awake and oriented x3 Head Head: normal to inspection Ears: hearing grossly normal bilaterally Nose: external nose normal Face and Sinus: face symmetric Mouth: oral mucosae normal Eyes General: appearance normal, both eyes and all related structures Eyelids: eyelids normal EOM: EOM intact bilaterally Neck Neck: normal visual inspection and no JVD Carotids: normal carotid upstroke Chest Chest inspection: normal inspection of the chest, symmetric chest movement, normal respiratory effort and cough Auscultation: Left: Diminished Lung Sounds and Right: Crackles Cardio Rate: regular rate Rhythm: regular rhythm Heart sounds: S1 normal and S2 normal; Negative rub, gallop or murmur GI GI: normal to inspection and obese Neuro General: patient alert, patient awake, patient oriented x3 and CN's II-XI intact bilaterally Skin Skin: no rashes or lesions noted Extremities Pulses: Normal: Right Posterior Tibial Pulse, Left Posterior Tibial Pulse, Right Radial Pulse and Left Radial Pulse Lower Extremity Edema: None: Bilateral Psych Psychological: normal affect Supplemental Info Supplemental Information ECHO: 02-13-2021 Interpretation Summary Mild LV systolic Dysfuncthion The estimated ejection fraction is 45-50 %. Mild LV systolic Dysfunction Stress Test Report Date: Procedure: Pharmacologic stress nuclear imaging study Indications: Chest discomfort; shortness of breath/dyspnea; CAD; status post CABG; CHF; valvular heart disease Consent: Per the patient Procedure: The patient underwent pharmacologic (Regadenoson) evaluation with a peak heart rate of 114 beats per minute (71 %predicted maximal heart rate) and a peak blood pressure of 166/90 mmHg. The baseline ECG demonstrated normal sinus rhythm. The peak pharmacologic ECG demonstrated no obvious ECG changes. There were no cardiac dysrhythmias pretest, during pharmacologic infusion, or recovery. There was no complaint of chest discomfort during pharmacologic infusion or recovery. The examination was discontinued secondary to completion of protocol. Impression: 1. Pharmacologic (Regadenoson) evaluation 2. Peak pharmacologic ECG with no obvious ECG changes. 3. There were no cardiac dysrhythmias pretest, during pharmacologic infusion, or recovery. 4. Nuclear images pending Myocardial perfusion imaging study: Technique: The patient was injected with 15.0 millicuries of technetium 99m Cardiolite and subsequently rest SPECT Cardiolite nuclear imaging was obtained in the horizontal long, vertical long, and short axis views. The patient underwent pharmacologic (Regadenoson) evaluation with a peak heart rate of 114 beats per minute (71 % percent predicted maximal heart rate) and a peak blood pressure of 166/90 mmHg. The patient was injected with 45.0 millicuries of technetium 99m Cardiolite and subsequently stress SPECT Cardiolite nuclear imaging was obtained in the horizontal long, vertical long, and short axis views. A gated Cardiolite study at peak stress was obtained. Interpretation: Rest and stress SPECT Cardiolite nuclear imaging status post realignment, normalization, and attenuation correction demonstrate the appearance of subtle diminished tracer uptake in the apical areas without significant change between rest and stress. There is end systolic thickening and brightening. The gated Cardiolite study demonstrates myocardial thickening and inward wall motion. The reported LVEF is 67 %. Impression: 1. Rest and stress SPECT Cardiolite nuclear imaging demonstrate myocardial perfusion changes compatible with physiologic apical thinning with no myocardial perfusion changes considered diagnostic for associated stress-induced myocardial ischemia. 2. The gated Cardiolite study reports an LVEF of 67 %. Cardiac Cath: 03-02-2017 Elevated left ventricular end-diastolic pressure Segmental LV systolic dysfunction-mild LVEF: 50% [facility] [place] multivessel CAD SOLER to the LAD: Patent SVG to first OM: Patent Mitral valve insufficiency: Moderate Left main: Normal LAD: Proximal 85% stenosis Mid LAD: Subtotal occlusion-filling from competitive flow-predominantly SOLER graft flow with no angiographically significant disease distal to the graft attachment Diagonal 1: Proximal-mild luminal irregularities LCx: Mild luminal irregularities Distal LCx: 50% stenosis OM1: Proximal-occluded and fills from the SVG graft with no angiographically significant disease distal to the graft attachment RCA: Mild luminal irregularities Chest CT Scan: 02/14/2021 IMPRESSION: 1. No evidence of aortic dissection or pulmonary embolism. 2. Hypoventilatory and mild atelectatic changes. 3. Subtle hazy groundglass opacities could reflect early infiltrates. Electronically Signed: Corwin Melchor, at 14:14 EST Labs: LDL Cholesterol 74 mg/dL (0-130) HDL Cholesterol 51 mg/dL (40-) Triglycerides 185 mg/dL (-199) VLDL Cholesterol 37 mg/dL (5-40) Diagnostics: Electrocardiogram Echocardiogram Stress Test NM Stress Test Chest X-Ray Pulmonary: No Data to Display Assessment and Plan Assessment and Plan (1) Atherosclerosis of yuhaaviatam coronary artery of yuhaaviatam heart without angina pectoris: Status: Chronic Comment: CABG in 2009 with SOLER to LAD and SVG to OM1; Plan - Nadir Naqvi MEDICATION TECHNICIAN, MEDICATION TECHNICIAN-C: Patient does acknowledge ongoing symptoms that may be consistent with coronary artery disease. Given her recent laboratory testing during her hospital visit and ongoing symptoms, she will proceed with heart catheterization. Based on results, further recommendation will be made. (2) History of coronary artery bypass graft x 2: Status: Chronic Clare - Nadir Naqvi NP, MEDICATION TECHNICIAN-C: She will continue current medical therapy with aspirin, atorvastatin, Coreg, Plavix, isosorbide, and lisinopril. (3) Valvular heart disease: Status: Chronic Clare - Nadir Naqvi NP, MEDICATION TECHNICIAN-C: Her most recent echocardiogram from 02/13/2021 showed ejection fraction of 45-50% and no significant valvular abnormalities. (4) Mixed hyperlipidemia: Status: Chronic Clare - Nadir Naqvi NP, MEDICATION TECHNICIAN-C: She will continue statin medication, atorvastatin 80 mg p.o. nightly. (5) Essential hypertension: Status: Chronic Clare - Nadir Naqvi NP, MEDICATION TECHNICIAN-C: Patient's blood pressure is well-controlled. We will continue to monitor. We will not make any medication regimen changes. (6) COVID-19: Status: Acute Plan - Nadir Naqvi MEDICATION TECHNICIAN, MEDICATION TECHNICIAN-C: She does acknowledge ongoing symptoms of shortness of breath and cough that may be related to Covid 19. She was asked to discuss further with primary care physician for ongoing pain medication and cough suppressant medication if indicated as well as long-term Covid treatment plan. Plan Details Additional Comments: Thank you for allowing us to participate in the patients plan of care, if you have any questions please do not hesitate to call. This note was generated using a voice recognition system and there may be incorrect words, spelling or punctuation that were not noted when reviewing the office note prior to saving. Follow Up: 6 Months (MEDICATION TECHNICIAN/PA) 12 Months (PFM) COVID (Procedure Consent) Procedure Criteria Procedure Criteria: Yes Elective The surgeon/proceduralist and patient have discussed in detail the risk of exposure to and/or potential harm posed by the COVID-19 virus with having a surgery/procedure at this time versus the risk of delaying the surgery/procedure. It is not possible to know either the risk of delaying the surgery or procedure or chance of getting an infection with perfect accuracy, but a joint decision was made between the patient and the surgeon/proceduralist to proceed at this time with the scheduled surgery/procedure as indicated on the consent form. Coding Level of Care Code Off vis,est,level 3 Diagnoses Atherosclerosis of yuhaaviatam coronary artery of yuhaaviatam heart without angina pectoris I25.10 History of coronary artery bypass graft x 2 Z95.1 Valvular heart disease I38 Mixed hyperlipidemia E78.2 Essential hypertension I10 COVID-19 U07.1 Coding Level of Care Code Off vis,est,level 3 Diagnoses Atherosclerosis of yuhaaviatam coronary artery of yuhaaviatam heart without angina pectoris I25.10 History of coronary artery bypass graft x 2 Z95.1 Valvular heart disease I38 Mixed hyperlipidemia E78.2 Essential hypertension I10 COVID-19 U07.1 02/24/21 1449<Electronically signed by Nadir Naqvi NP MEDICATION TECHNICIAN-C>Date Nadir Naqvi NP MEDICATION TECHNICIAN-C Cosigner Signature:Date (if applicable) CC: Dr. Adeel Norman MD ~ Assessment & Plan Addt'l Comments I have re-examined the patient. There are no clinical changes since date of exam
--- NOTE | 2021-02-27 10:01 | CL.D_ITS ---
Patient Name: TAWANA ALBERTS Study Date: 02/27/2021 Performing: Liam Cazares MD Ht: 61.81 inches 157 cm : 1960 Wt: 180.78 lbs 82 kg Age: 61 Gender: female BSA: 1.83 PROCEDURE(S) PERFORMED LS49-BTQ/COR/LV/CABG 17007 CLINICAL PROFILE AND INDICATIONS Indications: Suspected CAD, LV Dysfunction Heart Failure: None Stress/Imaging Stress/Image Study Performed: No Angina Classification Anginal Classification w/in 2 Weeks: Anginal Equivalent Dyspnea CAD Presentations: Non-STEMI. CONCLUSIONS Elevated Left Ventricular End Diastolic Pressure Segmented LV systolic dysfunction- Mild LVEF: by LV gram 50 % [place] Multivessel CAD LIIMA to LAD: patent SVG to OM1: occluded Left to Left collateral flow RECOMMENDATIONS Risk factor modification Medical therapy Case discussed / reviewed with Dr. Guillermo of Interventional Cardiology DESCRIPTION OF PROCEDURE The patient arrived to the procedure lab. The risks and benefits of the procedure as well as a full d escription of our services here and current unavailability of surgical backup were fully explained to the patient and/or their significant other prior to the catheterization. The Timeout was completed, verifying the correct patient and procedure. The patient's procedural site was prepped and draped in the usual fashion. Local anesthetic was given subcutaneously to right groin region with Lidocaine 2%. Using a modified Seldinger technique, arterial access was obtained via the right femoral artery, a 4 Fr sheath was inserted Left Coronary Artery selective angiography was performed in multiple views us ing a 4 Fr. JL5 catheter. Right Coronary Artery selective angiography was then performed in multiple views using a 4 Fr. 3DRC catheter. Saphenous Vein graft to the OM 1 selective angiography was perform ed in multiple views using a 4 Fr. 3DRC catheter. SVG occluded.. Left internal mammary artery graft to the LAD selective angiography was performed in multiple views using a 4 Fr. IM cathet er. Soler patent.. Left Ventriculography was performed in MOORE projection using a 4 Fr. Pigtail cathete r. LV to AO pullback pressures were then recorded.The arterial sheath was pulled and manual compressi on applied until hemostasis is achieved. CORONARY ANGIOGRAPHY DOMINANCE: Left Dominant LEFT HEART ASSESSMENT Left Ventricular Ejection Fraction: by LV Gram 50 % Inferior Mid Hypokinesis. Inferior Apical Hypokinesis Elevated Left Ventricular End Diastolic Pressure LVEDP: 30 mmHg LEFT ANTERIOR DESCENDING ARTERY: PROX LAD: 85 % Stenosis MID LAD: to distal LAD: filling from competitive flow - predominantly from SOLER graft flow with no si gnificant disease distal to the graft attachment DISTAL LAD: filling from competitive flow - predominantly from SOLER graft flow with no significant di sease distal to the graft attachment DIAGONAL 1: Proximal - subtotally occluded with the mid to distal vessel filling late from left to le ft collateral flow CIRCUMFLEX ARTERY: DISTAL CIRC: 50 % Stenosis OM 1: Proximal - is occluded, Mid - to distal filling late and faintly from left to left collateral f low RIGHT CORONARY ARTERY: Mild luminal irregularities GRAFTS: SOLER graft to the Mid LAD is patent Saphenous Vein graft to the 1st OM is totally occluded COLLATERAL FLOW: Collateral flow from Left to Left AORTIC ROOT: Angiographically normal COMPLICATIONS No Complications PROCEDURE MEDICATIONS Versed 1 mg IV Oxygen: 2 L/min via nasal cannula SUMMARY OF HEMODYNAMIC DATA Time AIR REST ECG 07:41:54 AO 147/83 (110) SA 08:50:09 LV 160/5, 37 09:03:18 LV 159/2, 30 09:03:24 LV 165/2, 32 09:04:07 LV 151/2, 30 09:04:14 LVp 158/1, 31 09:04:18 AOp 159/74 (109) 09:04:23 Signed By Liam Cazares MD On 02/27/2021 10:00:38 Liam Cazares MD
== END 2021-02-27 13:10 | disposition home or self-care (01) ==
LOC: CLSP 07:17
PROVIDERS: PCP Family Medicine Geriatric Medicine; Referring Provider Internal Medicine Cardiovascular Disease; Visit Provider Internal Medicine Cardiovascular Disease
DX: I25.10 Atherosclerotic heart disease of native coronary artery without angina pectoris (principal); I38 Endocarditis, valve unspecified; I11.0 Hypertensive heart disease with heart failure; I50.23 Acute on chronic systolic (congestive) heart failure; I25.2 Old myocardial infarction; E78.2 Mixed hyperlipidemia; E03.9 Hypothyroidism, unspecified; U07.1 COVID-19; F17.200 Nicotine dependence, unspecified, uncomplicated; Z95.1 Presence of aortocoronary bypass graft; Z79.82 Long term (current) use of aspirin; Z79.52 Long term (current) use of systemic steroids; Z79.02 Long term (current) use of antithrombotics/antiplatelets; Z79.899 Other long term (current) drug therapy
CPT/HCPCS: 93459; 99152; 99153; J7040; C1769; C1894; Q9967

== ENCOUNTER → 2021-03-17 11:19 | Outpatient (CLI) | payer OTHER, SELFPAY ==
--- NOTE | 2021-03-17 11:28 | RAD_ITS ---
STUDY: X-RAY CHEST REASON FOR EXAM: Female, 61 years old. COUGH TECHNIQUE: PA and lateral views of the chest. COMPARISON: 02/13/2021 FINDINGS: Status post median sternotomy. The lungs are clear and expanded. There is no demonstrated pleural abnormality. Normal size heart. Normal mediastinum and félix. Normal visualized pulmonary arteries. Normal visualized aortic arch and descending thoracic aorta. Normal visualized thoracic spine. Normal visualized ribs, clavicles, and shoulders. There is no demonstrated abnormality of the visualized soft tissue structures of the upper abdomen. RAD/Chest PA and Lateral IMPRESSION: No active disease. Electronically Signed: Pino Reynoso MD at 11:46 EST Tel , Service support ,
== END ==
PROVIDERS: PCP Family Medicine Geriatric Medicine; Referring Provider Family Medicine Geriatric Medicine; Visit Provider Family Medicine Geriatric Medicine
DX: R05.9 Cough, unspecified (principal)
CPT/HCPCS: 71046

== ENCOUNTER 2021-03-31 11:18 | Outpatient (CLI) | payer OTHER, SELFPAY ==
[2021-03-31 12:23] LABS: Absolute Lymphocyte Count 3.83 X10^3/uL (0.83-4.51); Absolute Neutrophil Count 9.2 X10^3/uL (2.0-7.7); Basophil# 0.08 X10^3/uL; Basophil% 0.5 % (0-1); Eosinophil# 0.07 X10^3/uL; Eosinophils% 0.5 % (0-5); Hemoglobin 13.4 g/dL (12.0-15.0); Lymphocyte # 3.83 X10^3/ul (0.83-4.51); Lymphocyte % 25.9 % (19-41); Mean Corp Hgb Conc 32.7 g/dL (32-36); Mean Corpuscular Hgb 28.7 pg (27.0-32.0); Mean Corpuscular Volume 87.8 fL (81-99); Mean Platelet Vol. 9.9 fl (6.2-12.0); Monocyte% 10.1 % (0-10); NRBC Flagged by Analyzer 0 % (0-5); Neutrophil # 9.22 X10^3/uL (2.7-7.7); Neutrophil % 62.5 % (47-70); Platelet Count 408 K/mm3 (150-450); RBC Distribution Width CV 17.2 % (11.6-14.6); RBC Distribution Width SD 54.2 fl (35.1-43.9); Red Blood Count 4.67 M/mm3 (4.2-5.4); White Blood Count 14.8 K/mm3 (4.4-11.0)
[2021-03-31 12:34] LABS: Anion Gap 4 (5-15); BUN 17 mg/dL (7-18); BUN/Creat Ratio 19.7 RATIO (10-20); Calcium,Total 8.9 mg/dL (8.5-10.1); Chloride 94 mmol/L (98-107); Creatinine, Serum 0.86 mg/dL (0.55-1.02); EST Glomerular Filtration Rate 71 mL/min (>60); Est Glom Filt Rate - Afr Amer 86 mL/min (>60); Glucose 99 mg/dL (74-106); Potassium 4.5 mmol/L (3.5-5.1); Sodium Level 132 mmol/L (136-145)
== END 2021-03-31 23:59 | disposition short-term general hospital (02) ==
LOC: POLAB3 11:26
PROVIDERS: PCP Family Medicine Geriatric Medicine; Visit Provider Family Medicine Geriatric Medicine
DX: E87.6 Hypokalemia (principal)
CPT/HCPCS: 36415; 80048; 83735; 85025

== ENCOUNTER 2021-04-01 10:07 | Outpatient (CLI) | payer OTHER, SELFPAY ==
[2021-04-01 12:45] LABS: Anion Gap 4 (5-15); BUN 15 mg/dL (7-18); BUN/Creat Ratio 17.4 RATIO (10-20); Calcium,Total 9.2 mg/dL (8.5-10.1); Chloride 97 mmol/L (98-107); Creatinine, Serum 0.86 mg/dL (0.55-1.02); EST Glomerular Filtration Rate 71 mL/min (>60); Est Glom Filt Rate - Afr Amer 86 mL/min (>60); Glucose 166 mg/dL (74-106); Sodium Level 133 mmol/L (136-145)
[2021-04-01 12:47] LABS: Urine Sodium 7 mmol/L (Not Establ.)
[2021-04-01 13:07] LABS: Osmolality, Serum 284 mOsm/KG (280-301); Osmolality, Urine 526 mOsm/KG
== END 2021-04-01 23:59 | disposition short-term general hospital (02) ==
LOC: POLAB3 10:07
PROVIDERS: PCP Family Medicine Geriatric Medicine; Visit Provider Family Medicine Geriatric Medicine
DX: E87.1 Hypo-osmolality and hyponatremia (principal)
CPT/HCPCS: 36415; 80048; 83930; 83935; 84300

== ENCOUNTER 2021-05-13 06:24 | Emergency (ER) | payer OTHER, SELFPAY ==
[2021-05-13 06:24] VITALS: BP 122/74; PULSE 74; RESP 17
[2021-05-13 06:25] VITALS: PULSE 88; RESP 15; TEMP 37; O2SAT 99; BMI 34.8
--- NOTE | 2021-05-13 06:35 | RAD_ITS ---
STUDY: X-RAY - RIGHT HUMERUS REASON FOR EXAM: Proximal right humeral pain, right humeral injury. TECHNIQUE: 2 view(s) of the humerus. COMPARISON: None. FINDINGS: There is a mildly impacted fracture of the surgical neck of the humerus, a nondisplaced fracture of the greater tuberosity and a suspected nondisplaced fracture of the lesser tuberosity. There is soft tissue swelling. RAD/Humerus min 2 Views IMPRESSION: Proximal humeral fracture. Electronically Signed: Calin Chavez MD at 7:37 EST ,
[2021-05-13 06:36] VITALS: O2SAT 97
--- NOTE | 2021-05-13 06:36 | EDS_ITS ---
HPI History of Present Illness Chief Complaint: Fall Informant: patient Onset/Context/Timing Onset: Today Current Severity: Moderate Maximum Severity: Severe Narrative Narrative: Patient presents secondary to right upper arm pain after a fall. Patient states she was reaching to turn off a light as she was leaving for work this morning and tripped over something falling. She states her arm slid down the wall and she has significant pain to the right upper arm. She is right-hand dominant. No paresthesias. Denies striking her head or any other injury. [facility] Medical History (Updated 05/13/21 @ 07:[address] Florecita Hernández MD) Acute on chronic systolic (congestive) heart failure Acute systolic (congestive) heart failure Atherosclerosis of [place] coronary artery of [place] heart without angina pectoris Chest pain Congestive heart failure Dyspnea Essential hypertension GERD (gastroesophageal reflux disease) Hypothyroidism Hypoxemia Mixed hyperlipidemia Smoker Valvular heart disease Home Medications aspirin 81 mg PO DAILY@0800 #30 tab 03/03/17 [Rx Last Taken 02/27/21] omeprazole 40 mg capsule,delayed release 40 mg PO DAILY #90 cap 04/14/17 [Rx Last Taken 02/27/21] venlafaxine 75 mg capsule,extended release 24 hr 75 mg PO DAILY 02/23/18 [History Last Taken 02/27/21] levothyroxine 25 mcg tablet 25 mcg PO DAILY 07/19/19 [History Last Taken 02/27/21] lisinopril 40 mg tablet 40 mg PO DAILY tab 07/19/19 [History Last Taken 02/27/21] atorvastatin 80 mg PO QHS #90 tab 02/16/21 [Rx Last Taken 02/27/21] cyclobenzaprine 10 mg tablet 10 mg PO Q8H PRN tab 02/24/21 [History Last Taken 02/27/21] furosemide 40 mg tablet 40 mg PO DAILY tab 02/24/21 [History Last Taken 02/27/21] nitroglycerin 0.4 mg sublingual tablet 0.4 mg SUBLINGUAL Q5-15M PRN tab 02/24/21 [History Last Taken 02/27/21] ondansetron 4 mg disintegrating tablet 4 mg PO Q8H PRN tab 02/24/21 [History Last Taken Unknown] carvedilol 25 mg tablet 25 mg PO BID #180 tab 02/27/21 [Rx Last Taken Unknown] clopidogrel 75 mg tablet 75 mg PO DAILY #30 tab 03/02/21 [Rx Last Taken Unknown] isosorbide dinitrate 30 mg tablet 60 mg PO DAILY tab 04/03/21 [History Last Taken Unknown] oxycodone-acetaminophen [Percocet] 1 tab PO Q6H PRN 4 Days #14 tab 05/13/21 [Rx Last Taken Unknown] Allergy/AdvReac Type Severity Reaction Status Date / Time No Known Allergies Allergy Verified 05/13/21 06:32 Family History Father CAD (coronary artery disease) Afib Hypertension Mother Hypertension Diabetes CAD (coronary artery disease) Son Hypertension Surgical History History of appendectomy History of cholecystectomy History of coronary artery bypass graft x 2 (~2009) History of hysterectomy History of left heart catheterization (LHC) (~02/27/21) History of open reduction and internal fixation (ORIF) procedure Social History Smoking Status: Light Smoker (<10/day) alcohol intake: current alcohol intake frequency: 3 or more drinks per day Alcohol type: beer substance use type: does not use caffeine: Yes Type: coffee Number of servings: 1 what type of physical activity do you participate in: walking frequency: daily duration: 15-30 minutes/day seatbelt use: always do you feel safe at home: Yes ROS ROS ED Constitutional Constitutional ED: Denies chills or fever(s) Eyes Eyes: Denies blurry vision ENT ENT ED: Denies rhinorrhea or sore throat Cardiovascular Cardiovascular: Denies chest pain or palpitations Respiratory/Chest Respiratory/Chest: Denies cough or dyspnea Gastrointestinal Gastrointestinal: Denies abdominal pain, nausea or vomiting Genitourinary Genitourinary ED: Denies dysuria Musculoskeletal Musculoskeletal: Reports arthralgias; Denies back pain or neck pain Neurologic Neurologic: Denies headache(s) or paresthesias Allergic/Immunologic Allergic/Immunologic ED: Denies urticaria EXAM Physical Exam Const Vital Signs: 05/13/21 06:24 05/13/21 06:25 05/13/21 06:36 Temperature 98.6 F Temperature Source Temporal Pulse Rate 74 88 Respiratory Rate 17 15 Respiratory Effort Normal Respiratory Depth Normal Respiratory Pattern Normal Blood Pressure 122/74 H Blood Pressure Mean 90 Pulse Ox 99 97 Oxygen Delivery Method Room Air Positive well nourished and well developed General Appearance ED: well developed HEENT Reports moist mucous membranes Eyes PERRL and EOMs intact bilaterally Neck supple Chest Wall inspection of chest normal and palpation of chest normal Resp normal respiratory effort and clear to auscultation bilaterally Cardio regular rate and regular rhythm GI non-tender Palpation: soft Extremity Extremity Narrative: Tenderness location along the mid to proximal right humerus. No obvious evidence of dislocation. Strong radial pulse with good sensation distally. No tenderness over the forearm or wrist. Neuro oriented x3 Sensorium / Orientation: alert Psych mental status grossly normal Skin no rashes or lesions noted MDM MDM MDM Narrative Medical decision making narrative: Patient given morphine IM for pain control. Right humerus x-rays obtained. Treatment and Re-Evaluation Comments:: Patient has a proximal right humerus fracture. No evidence of dislocation. X-rays reviewed with her. Patient be placed in a sling and swath and referred to orthopedics. She will be written Percocet for pain. Discharge Plan Triage Chief Complaint: Fall ED Provider: Florecita Hernández Dx/Rx/DC Orders Clinical Impression: Fracture, humerus Instructions: Understanding a Humerus Fracture Prescriptions: New oxycodone-acetaminophen [Percocet] 5-325 mg tablet 1 tab PO Q6H PRN (Reason: pain) 4 Days Qty: 14 RF: 0 No Action omeprazole 40 MG capsule,delayed release(DR/EC) 40 mg PO DAILY Qty: 90 RF: 3 venlafaxine [Effexor XR] 75 mg capsule,extended release 24hr 75 mg PO DAILY RF: 0 lisinopril 40 mg tablet 40 mg PO DAILY RF: 0 furosemide 40 mg tablet 40 mg PO DAILY RF: 0 levothyroxine 25 mcg tablet 25 mcg PO DAILY RF: 0 nitroglycerin 0.4 mg tablet, sublingual 0.4 mg SUBLINGUAL Q5-15M PRN (Reason: Chest Pain) RF: 0 ondansetron 4 mg tablet,disintegrating 4 mg PO Q8H PRN (Reason: Nausea) RF: 0 cyclobenzaprine 10 mg tablet 10 mg PO Q8H PRN (Reason: Muscle spams) RF: 0 aspirin 81 MG tablet 81 mg PO DAILY@0800 Qty: 30 RF: 0 atorvastatin 40 MG tablet 80 mg PO QHS Qty: 90 RF: 3 carvedilol 25 mg tablet 25 mg PO BID Qty: 180 RF: 4 clopidogrel 75 mg tablet 75 mg PO DAILY Qty: 30 RF: 11 isosorbide dinitrate 30 mg tablet 60 mg PO DAILY RF: 0 Primary Care Provider: Adeel Norman Chi Referrals: Hi Martin DO [STAFF PHYSICIAN] - 5-7 Days Adeel Norman Chi, MD [Primary Care Provider] - Disposition Disposition: Home, Self Care
[2021-05-13] MEDS: Morphine 4 MG/ML Syringe 8 MG IM (06:43)
[2021-05-13 07:39] VITALS: BP 124/69; PULSE 72; RESP 16; O2SAT 98
== END 2021-05-13 07:40 | disposition home or self-care (01) ==
PROVIDERS: Emergency Provider Emergency Medicine; PCP Family Medicine Geriatric Medicine; Visit Provider Emergency Medicine
DX: S42.211A Unspecified displaced fracture of surgical neck of right humerus, initial encounter for closed fracture (principal); I11.0 Hypertensive heart disease with heart failure; I50.23 Acute on chronic systolic (congestive) heart failure; S42.254A Nondisplaced fracture of greater tuberosity of right humerus, initial encounter for closed fracture; S42.264A Nondisplaced fracture of lesser tuberosity of right humerus, initial encounter for closed fracture; W01.0XXA Fall on same level from slipping, tripping and stumbling without subsequent striking against object, initial encounter; Y93.89 Activity, other specified; I25.10 Atherosclerotic heart disease of native coronary artery without angina pectoris; E78.2 Mixed hyperlipidemia; E03.9 Hypothyroidism, unspecified; K21.9 Gastro-esophageal reflux disease without esophagitis; F17.200 Nicotine dependence, unspecified, uncomplicated; Z95.1 Presence of aortocoronary bypass graft; Z79.02 Long term (current) use of antithrombotics/antiplatelets; Z79.82 Long term (current) use of aspirin; Z79.899 Other long term (current) drug therapy
CPT/HCPCS: 73060; 96372; 99283

== ENCOUNTER 2021-06-23 08:57 | Outpatient (RCR) | payer OTHER, SELFPAY ==
--- NOTE | 2021-06-23 10:14 | HP.PTEVAL ---
Patient's Visit Information TAWANA ALBERTS is a 61 year old F referred to Physical Therapy by Dr. Hi Martin DO with a diagnosis of R shoulder fracture. Date of Evaluation: 06/23/21 Physical Therapist: Geovanni Mesa, PT, ATC - Visit Plan Frequency: 2x /Week Duration: 6 Weeks Plan: R shoulder AAROM x 2 weeks, then AROM. Begin strengthening of the rotator cuff and scap stab's when tolerated. - Subjective DOI: 05/13/21. Pt reports she was turning her light off when she lost balance and fell. Pt reports she was able to get up and call her son. Pt reports she went to the ER and received x-rays which revealed a fractured R humerus. Pt reports she was placed in a sling and told to perform some simple AROM ex's. Pt reports she works for a [employer] which she is unable to do at this time. Pt is R hand dominant. Pt denies tingling and numbness at this time in her R UE. Pt reports significant sleep difficulty secondary to pain. 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 Pt reports she is off work still for 2-4 weeks, but wants to return at that time. Pt reports her R shoulder pain is currently 6/10 at rest, 10/10 at worst (when pain radiates into her mid humerus) - Pain R shoulder Pain Intensity (Out of 10): 6 Pain Intensity Range: 10 - Objective Neuro: B UE sensation is WNL to light touch. B bicepital reflex= 2/3. ROM: L shoulder flex= 150, abd= 140, ER= 50, IR WNL; R shoulder flex= 85, abd= 50, ER= 0, IR severely limited. MMT: R shoulder is grossly 2-/5 while L UE 5/5 throughout. Observation: Pt still has bruising present at this time. No obvious deformity at this time - Balance/Special Test Scores Quick DASH Score: 81.8175 - Goals Goal 1:: Decrease R shoulder pain x 50% to aid with sleep Goal Time Frame: 4-6 Weeks Goal 2:: Increase R shoulder strength x 2 muscle grades to aid with IADL's Goal Time Frame: 4-6 Weeks Goal 3:: Increase R shoulder flex and abd ROM x 30 degrees to aid with overhead activity Goal Time Frame: 4-6 Weeks Goal 4:: I with HEP Goal Time Frame: 4-6 Weeks - Rehabilitation Potential Physical Therapy Diagnosis: Pt has R shoulder pain, weakness, and limited ROM secondary to R shoulder fracture Rehabilitation Potential: Good - Anticipated Interventions Patient/Client Instruction: Educate patient on: Condition, Plan of Care For the Purpose of:: To improve self management Therapeutic Exercise to Include: Strength training, Endurance training, Active ROM, Scapular Strength/Stabilization For the Purpose of:: To decrease pain, To increase ROM, To improve muscle performance and motor function Cryotherapy (ice pack, ice massage): Yes For the Purpose of:: To decrease pain Thank you for the opportunity to evaluate your patient. For Medicare and Medicare HMO plans, please review the plan of care and approve it. It will need to be FAXED BACK to us at [phone] for Medicare purposes. For Medicare only, by signing this I certify the plan of care. Please let me know if there are questions or concerns regarding this plan of care. Physician Signature: Date:
--- NOTE | 2021-09-04 12:51 | HP.PTDCNRP_ITS ---
TAWANA ALBERTS was seen in my office for initial evaluation on 06/23/21. The following Plan of Care was established for this patient: Initial Frequency: 2x /Week Initial Duration: 6 Weeks Patient/Client Instruction: Educate patient on: Condition, Plan of Care For the Purpose of:: To improve self management Therapeutic Exercise to Include: Strength training, Endurance training, Active ROM, Scapular Strength/Stabilization For the Purpose of:: To decrease pain, To increase ROM, To improve muscle performance and motor function Cryotherapy (ice pack, ice massage): Yes For the Purpose of:: To decrease pain This patient was last seen in our office . Pertinent comments regarding their Physical therapy will appear below: Pt was treated for 1 PT visit for shoulder pain through the date of 06/23/21. Pt has not returned through todays date and is discontinued at this time At this point I will be discontinuing this patient from physical therapy. I wou ld be happy to see this patient again in the future if found appropriate by the physician. Thank you! Geovanni Mesa, PT, ATC Balance/Gait/Functional tests - Balance/Special Test Scores Quick DASH Score: 81.8175
== END 2021-06-23 19:00 | disposition home or self-care (01) ==
LOC: PT 08:57
PROVIDERS: PCP Family Medicine Geriatric Medicine; Referring Provider Orthopaedic Surgery; Visit Provider Orthopaedic Surgery
DX: S42.301D Unspecified fracture of shaft of humerus, right arm, subsequent encounter for fracture with routine healing (principal); X58.XXXD Exposure to other specified factors, subsequent encounter
CPT/HCPCS: 97110; 97161

== ENCOUNTER → 2021-07-22 | Outpatient (CLI) | payer OTHER, SELFPAY ==
[2021-07-22 17:05] LABS: Absolute Lymphocyte Count 4.06 X10^3/uL (0.83-4.51); Absolute Neutrophil Count 6.1 X10^3/uL (2.0-7.7); Basophil# 0.07 X10^3/uL; Basophil% 0.6 % (0-1); Eosinophil# 0.14 X10^3/uL; Eosinophils% 1.2 % (0-5); Hematocrit 36.3 % (37-47); Lymphocyte # 4.06 X10^3/ul (0.83-4.51); Lymphocyte % 35.7 % (19-41); Mean Corp Hgb Conc 33.1 g/dL (32-36); Mean Corpuscular Hgb 29.5 pg (27.0-32.0); Mean Corpuscular Volume 89.2 fL (81-99); Mean Platelet Vol. 10.4 fl (6.2-12.0); Monocyte# 0.99 X10^3/uL; Monocyte% 8.7 % (0-10); NRBC Flagged by Analyzer 0 % (0-5); Neutrophil # 6.06 X10^3/uL (2.7-7.7); Neutrophil % 53.4 % (47-70); POSITIVE MORPHOLOGY YES; Platelet Count 386 K/mm3 (150-450); RBC Distribution Width CV 14.4 % (11.6-14.6); RBC Distribution Width SD 46.9 fl (35.1-43.9); Red Blood Count 4.07 M/mm3 (4.2-5.4); White Blood Count 11.4 K/mm3 (4.4-11.0)
[2021-07-22 17:09] LABS: Differential Indicated SCAN CRITERIA MET
[2021-07-22 17:46] LABS: ALB/GLOB Ratio 0.7 RATIO (0.9-2.4); AST(SGOT) 15 U/L (15-37); Alanine Aminotransfer ALT/SGPT 20 U/L (13-56); Albumin, Serum 2.8 g/dL (3.2-5.0); Alkaline Phosphatase 108 U/L (45-117); Anion Gap 8 (5-15); BUN 10 mg/dL (7-18); BUN/Creat Ratio 11.2 RATIO (10-20); Calcium,Total 7.5 mg/dL (8.5-10.1); Chloride 105 mmol/L (98-107); Creatinine, Serum 0.89 mg/dL (0.55-1.02); EST Glomerular Filtration Rate 68 mL/min (>60); Est Glom Filt Rate - Afr Amer 82 mL/min (>60); Globulin 3.9 g/dL (2.2-4.2); Glucose 97 mg/dL (74-106); Potassium 3.6 mmol/L (3.5-5.1); Protein, Total 6.7 g/dL (6.4-8.2); Sodium Level 139 mmol/L (136-145); Thyroid Stim Hormone (TSH) 0.93 uIU/mL (0.358-3.74)
[2021-07-22 19:02] LABS: Atypical Lymphocyte 1+ %; Platelet Estimate ADEQUATE (ADEQ); Reactive Lymphocyte 1+; Red Cell Morphology NORM C+C NORMAL (NORM C&C)
== END | disposition home or self-care (01) ==
LOC: POLAB3 15:57
PROVIDERS: PCP Family Medicine Geriatric Medicine; Visit Provider Family Medicine Geriatric Medicine
DX: E11.9 Type 2 diabetes mellitus without complications (principal); I10 Essential (primary) hypertension
CPT/HCPCS: 36415; 80053; 84443; 85025

== ENCOUNTER → 2021-12-10 | Outpatient (CLI) | payer OTHER, SELFPAY ==
--- NOTE | 2021-12-10 15:20 | VDLE_ITS ---
Reason For Study: edema RIGHT GSV is normal. CFV is compressible, spontaneous, phasic, competent and demonstrates normal augmentation. FV is compressible, spontaneous, phasic, competent and demonstrates normal augmentation. POP V is compressible, spontaneous, phasic, competent and demonstrates normal augmentation. T/P Trunk is compressible. PTV is compressible. RT PerV is compressible. Procedure This is a venous duplex using B-mode, color flow and spectral Doppler. Exam performed in department. The exam was abbreviated due to the COVID 19 protocol. The exam was diagnostic. A preliminary report was called and/or faxed to Dr. Norman. VL/Venous Duplex US, Unilateral Interpretation Summary Deep veins of the right lower extremity are patent and compressible segmentally . There is no evidence of right lower extremity deep vein thrombosis. Valvular competence eder ears intact within the proximal deep venous system on the right . The right great saphenous vein a ppears patent and compressible segmentally. Ordering Physician: Adeel Norman Chi Performed By: Harris Carrera RVT
--- NOTE | 2021-12-10 15:45 | RAD_ITS ---
STUDY: X-RAY - LUMBAR SPINE REASON FOR EXAM: Female, 61 years old. PAIN TECHNIQUE: 3 view(s) of the lumbar spine were obtained. COMPARISON: None FINDINGS: Normal lumbar lordosis. There is no substantial scoliosis. There is a normal alignment of the vertebrae. Normal vertebral bodies and endplates. Normal disc space heights. Diffuse vascular calcification of the aorta without evidence for aneurysm RAD/Lumbar Spine 2 or 3 Views IMPRESSION: Normal x-ray examination of the lumbar spine. Electronically Signed: Bismark Marley MD at 20:19 EDT ,
--- NOTE | 2021-12-10 16:28 | CT_ITS ---
EXAMINATION : Head CT w/out contrast HISTORY : CLUSTER HEADACHE COMPARISON : None. TECHNIQUE : Multiple contiguous axial images were obtained from the skull base to the vertex without intravenous contrast. A radiation dose optimization technique was used for this scan. FINDINGS : The ventricles and sulci are normal in size. There is no evidence for acute intracranial hemorrhage, mass effect, or midline shift. There is no extra-axial fluid collection. There is normal templeton-white differentiation, without CT evidence of acute ischemia or infarct. The skull base and calvarium are unremarkable. The orbits are unremarkable. The paranasal sinuses are clear. The mastoid air cells are well-aerated. The soft tissues are unremarkable. CT/Brain/Head without Contrast IMPRESSION: No acute intracranial abnormality. Electronically Signed: Feroz Fernando MD at 17:10 EDT ,
== END | disposition home or self-care (01) ==
PROVIDERS: PCP Family Medicine Geriatric Medicine; Referring Provider Family Medicine Geriatric Medicine; Visit Provider Family Medicine Geriatric Medicine
DX: R60.0 Localized edema (principal); G44.009 Cluster headache syndrome, unspecified, not intractable; M54.50 Low back pain, unspecified
CPT/HCPCS: 70450; 72100; 93971

== ENCOUNTER → 2021-12-10 | Outpatient (CLI) | payer OTHER, SELFPAY ==
[2021-12-10 16:58] LABS: Absolute Lymphocyte Count 4.07 X10^3/uL (0.83-4.51); Basophil# 0.07 X10^3/uL; Basophil% 0.6 % (0-1); Eosinophil# 0.19 X10^3/uL; Eosinophils% 1.7 % (0-5); Hematocrit 39.8 % (37-47); Hemoglobin 13.5 g/dL (12.0-15.0); Lymphocyte # 4.07 X10^3/ul (0.83-4.51); Mean Corp Hgb Conc 33.9 g/dL (32-36); Mean Corpuscular Hgb 30.1 pg (27.0-32.0); Mean Corpuscular Volume 88.8 fL (81-99); Mean Platelet Vol. 9.8 fl (6.2-12.0); Monocyte# 0.92 X10^3/uL; Monocyte% 8.1 % (0-10); NRBC Flagged by Analyzer 0 % (0-5); Neutrophil # 6.01 X10^3/uL (2.7-7.7); Neutrophil % 53.3 % (47-70); POSITIVE MORPHOLOGY YES; Platelet Count 436 K/mm3 (150-450); RBC Distribution Width CV 15.5 % (11.6-14.6); RBC Distribution Width SD 50.4 fl (35.1-43.9); Red Blood Count 4.48 M/mm3 (4.2-5.4); White Blood Count 11.3 K/mm3 (4.4-11.0)
[2021-12-10 17:08] LABS: Differential Indicated SCAN CRITERIA MET
[2021-12-10 17:34] LABS: Differential Comment SCANNED
[2021-12-10 17:47] LABS: ALB/GLOB Ratio 0.5 RATIO (0.9-2.4); AST(SGOT) 16 U/L (15-37); Alanine Aminotransfer ALT/SGPT 18 U/L (13-56); Albumin, Serum 2.2 g/dL (3.2-5.0); Alkaline Phosphatase 190 U/L (45-117); Anion Gap 10 (5-15); BUN 10 mg/dL (7-18); BUN/Creat Ratio 13.4 RATIO (10-20); Calcium,Total 7.9 mg/dL (8.5-10.1); Chloride 96 mmol/L (98-107); Creatinine, Serum 0.75 mg/dL (0.55-1.02); EST Glomerular Filtration Rate 83 mL/min (>60); Est Glom Filt Rate - Afr Amer 101 mL/min (>60); Globulin 4.4 g/dL (2.2-4.2); Glucose 90 mg/dL (74-106); Potassium 2.8 mmol/L (3.5-5.1); Protein, Total 6.6 g/dL (6.4-8.2); Sodium Level 138 mmol/L (136-145)
== END | disposition home or self-care (01) ==
LOC: POLAB3 16:46
PROVIDERS: PCP Family Medicine Geriatric Medicine; Visit Provider Family Medicine Geriatric Medicine
DX: G44.009 Cluster headache syndrome, unspecified, not intractable (principal)
CPT/HCPCS: 36415; 80053; 85025

== ENCOUNTER → 2022-02-15 | Outpatient (CLI) | payer OTHER, SELFPAY ==
--- NOTE | 2022-02-15 08:58 | RAD_ITS ---
INDICATION: CERVICALGIA EXAMINATION/TECHNIQUE: X-RAY - XR Spine Cervical 4 or 5 Views COMPARISON: 10/11/2017 FINDINGS: VERTEBRAE: Preserved vertebral body height. No fracture. No spondylolisthesis. Straightening of the normal cervical lordosis. DISCS: Disc spaces are maintained. NECK SOFT TISSUES: No prevertebral soft tissue widening. LUNG APICES: Clear. RAD/Cerv Spine 2 or 3 Views IMPRESSION: Stable examination. No significant degenerative disc changes are acute bony abnormalities. Electronically Signed: Vamsi Morelos MD at 17:30 EST ,
== END | disposition home or self-care (01) ==
LOC: RAD 08:57
PROVIDERS: PCP Family Medicine Geriatric Medicine; Referring Provider Orthopaedic Surgery; Visit Provider Orthopaedic Surgery
DX: M54.2 Cervicalgia (principal)
CPT/HCPCS: 72040

== ENCOUNTER → 2022-02-24 | Outpatient (CLI) | payer OTHER, SELFPAY ==
[2022-02-24 17:22] LABS: Absolute Neutrophil Count 4.8 X10^3/uL (2.0-7.7); Basophil# 0.06 X10^3/uL; Basophil% 0.8 % (0-1); Eosinophil# 0.06 X10^3/uL; Eosinophils% 0.8 % (0-5); Hematocrit 41.4 % (37-47); Lymphocyte % 22.1 % (19-41); Mean Corp Hgb Conc 33.8 g/dL (32-36); Mean Corpuscular Hgb 30.8 pg (27.0-32.0); Mean Platelet Vol. 10.2 fl (6.2-12.0); Monocyte# 0.65 X10^3/uL; NRBC Flagged by Analyzer 0 % (0-5); Neutrophil # 4.84 X10^3/uL (2.7-7.7); Neutrophil % 66.9 % (47-70); Platelet Count 349 K/mm3 (150-450); RBC Distribution Width CV 14.1 % (11.6-14.6); RBC Distribution Width SD 47.6 fl (35.1-43.9); Red Blood Count 4.55 M/mm3 (4.2-5.4); White Blood Count 7.2 K/mm3 (4.4-11.0)
[2022-02-24 19:02] LABS: ALB/GLOB Ratio 0.6 RATIO (0.9-2.4); AST(SGOT) 28 U/L (15-37); Alanine Aminotransfer ALT/SGPT 17 U/L (13-56); Albumin, Serum 2.6 g/dL (3.2-5.0); Alkaline Phosphatase 120 U/L (45-117); Anion Gap 4 (5-15); BUN 7 mg/dL (7-18); BUN/Creat Ratio 10.2 RATIO (10-20); Calcium,Total 8.3 mg/dL (8.5-10.1); Chloride 100 mmol/L (98-107); Creatinine, Serum 0.68 mg/dL (0.55-1.02); EST Glomerular Filtration Rate 92 mL/min (>60); Est Glom Filt Rate - Afr Amer 112 mL/min (>60); Globulin 4.3 g/dL (2.2-4.2); Glucose 88 mg/dL (74-106); Potassium 2.6 mmol/L (3.5-5.1); Protein, Total 6.9 g/dL (6.4-8.2); Sodium Level 136 mmol/L (136-145); Thyroid Stim Hormone (TSH) 1.44 uIU/mL (0.358-3.74)
== END | disposition home or self-care (01) ==
LOC: POLAB3 16:16
PROVIDERS: PCP Family Medicine Geriatric Medicine; Visit Provider Family Medicine Geriatric Medicine
DX: E11.9 Type 2 diabetes mellitus without complications (principal); I10 Essential (primary) hypertension
CPT/HCPCS: 36415; 80053; 84443; 85025

== ENCOUNTER → 2022-02-25 | Outpatient (CLI) | payer OTHER, SELFPAY | END | disposition home or self-care (01) | LOC: PSN 12:33 | PROVIDERS: PCP Family Medicine Geriatric Medicine; Visit Provider Family Medicine Geriatric Medicine | DX: R68.83 Chills (without fever) (principal) | CPT/HCPCS: 87635; 87804; 87807; U0003; U0005 ==

== ENCOUNTER 2022-02-26 18:23 | Inpatient (IN) | payer OTHER, SELFPAY ==
[2022-02-26 18:23] VITALS: BP 172/71; PULSE 79; RESP 25; TEMP 36; O2SAT 95; BMI 28.5
--- NOTE | 2022-02-26 18:25 | EKG12_ITS ---
Test Reason : CP Blood Pressure : / mmHG Vent. Rate : 077 BPM Atrial Rate : 077 BPM P-R Int : 156 ms QRS Dur : 092 ms QT Int : 442 ms P-R-T Axes : 035 017 063 degrees QTc Int : 500 ms Normal sinus rhythm Cannot rule out Anterior infarct , age undetermined Abnormal ECG Confirmed by ANTONY CALLE, IRIS ([id number]), photo editor RODOLFO MARTIN ([id number]) on 03/02/2022 11:09:43 AM Referred By: Confirmed By:LAUREN HARDY MD
[2022-02-26 18:41] LABS: Absolute Neutrophil Count 6.6 X10^3/uL (2.0-7.7); Basophil# 0.04 X10^3/uL; Basophil% 0.5 % (0-1); Eosinophil# 0.02 X10^3/uL; Eosinophils% 0.2 % (0-5); Hematocrit 48.4 % (37-47); Hemoglobin 15.8 g/dL (12.0-15.0); Lymphocyte % 16.9 % (19-41); Mean Corp Hgb Conc 32.6 g/dL (32-36); Mean Corpuscular Hgb 29.9 pg (27.0-32.0); Mean Corpuscular Volume 91.5 fL (81-99); Mean Platelet Vol. 10.1 fl (6.2-12.0); Monocyte# 0.65 X10^3/uL; Monocyte% 7.3 % (0-10); NRBC Flagged by Analyzer 0 % (0-5); Neutrophil # 6.62 X10^3/uL (2.7-7.7); Neutrophil % 74.6 % (47-70); Platelet Count 360 K/mm3 (150-450); RBC Distribution Width CV 13.6 % (11.6-14.6); RBC Distribution Width SD 46.1 fl (35.1-43.9); Red Blood Count 5.29 M/mm3 (4.2-5.4); White Blood Count 8.9 K/mm3 (4.4-11.0)
[2022-02-26 19:12] LABS: Anion Gap 6 (5-15); BUN 11 mg/dL (7-18); BUN/Creat Ratio 14.8 RATIO (10-20); Calcium,Total 9.4 mg/dL (8.5-10.1); Chloride 97 mmol/L (98-107); Creatinine, Serum 0.74 mg/dL (0.55-1.02); EST Glomerular Filtration Rate 84 mL/min (>60); Est Glom Filt Rate - Afr Amer 101 mL/min (>60); Estimated Creatinine Clearance 61.54 ml/min; Glucose 133 mg/dL (74-106); Potassium 2.7 mmol/L (3.5-5.1); Sodium Level 138 mmol/L (136-145); Troponin-I HS 15 pg/mL (3.0-54.0)
--- NOTE | 2022-02-26 19:15 | ED.VIS.CHEST ---
HPI History of Present Illness Chief Complaint: Chest Pain Informant: patient Onset/Context/Timing Onset: Hours Activity at onset: sudden Timing: Continuous Quality: Positive for Pain and Pressure Location: Substernal Current Severity: Moderate Maximum Severity: Severe Narrative Narrative: Patient presents secondary to rather abrupt onset of substernal chest pain a couple hours ago. Patient tested positive for influenza and RSV yesterday. She had fever this morning. She states pain hit her rather suddenly. She does have shortness of breath and states she initially broke out in a sweat. She is a history of coronary artery disease and had a to a bypass 12 years ago. She is no longer on aspirin. [facility] Medical History Acute on chronic systolic (congestive) heart failure Acute systolic (congestive) heart failure Atherosclerosis of [place] coronary artery of [place] heart without angina pectoris Chest pain Congestive heart failure Dyspnea Essential hypertension GERD (gastroesophageal reflux disease) Heart attack Hypothyroidism Hypoxemia Mixed hyperlipidemia Smoker Valvular heart disease Home Medications omeprazole 40 mg capsule,delayed release 40 mg PO DAILY #90 caps 04/14/17 [Rx Last Taken 02/27/21] venlafaxine 75 mg capsule,extended release 24 hr (Effexor XR) 75 mg PO DAILY mental health 02/23/18 [History Last Taken 02/27/21] levothyroxine 25 mcg tablet 25 mcg PO DAILY thyroid 07/19/19 [History Last Taken 02/27/21] cyclobenzaprine 10 mg tablet 10 mg PO Q8H PRN Muscle spams 02/24/21 [History Last Taken 02/27/21] furosemide 40 mg tablet 40 mg PO DAILY diuretic 02/24/21 [History Last Taken 02/27/21] ondansetron 4 mg disintegrating tablet 4 mg PO Q8H PRN Nausea 02/24/21 [History Last Taken Unknown] carvedilol 25 mg tablet 25 mg PO BID #180 tabs 02/27/21 [Rx Last Taken Unknown] clopidogrel 75 mg tablet 75 mg PO DAILY #30 tabs 03/02/21 [Rx Last Taken 05/12/21 08:58] acetaminophen 500 mg tablet 1,000 mg PO Q6H PRN pain #100 tabs 05/15/21 [Rx Last Taken Unknown] dkwqrif-jiqzpyasxvqum-fctgwxxj 250 mg-250 mg-65 mg tablet (Excedrin Migraine) 1 tab PO .COMPLEX 09/15/21 [History Last Taken Unknown] atorvastatin 40 mg tablet 80 mg PO QHS 09/15/21 [History Last Taken Unknown] cyclobenzaprine 10 mg tablet 10 mg PO HS 02/05/22 [History Last Taken Unknown] isosorbide mononitrate 30 mg tablet,extended release 24 hr 60 mg PO DAILY #90 tabs 02/05/22 [Rx Last Taken Unknown] pcqfgkjskvtj-ijvywzhh-noyyex tablet 1 tab PO DAILY 02/05/22 [History Last Taken Unknown] nitroglycerin 0.4 mg sublingual tablet 0.4 mg sublingual Q5-15M PRN Chest Pain #25 tabs 02/05/22 [Rx Last Taken Unknown] Allergy/AdvReac Type Severity Reaction Status Date / Time No Known Allergies Allergy Verified 02/26/22 18:23 Family History Father CAD (coronary artery disease) Afib Hypertension Mother Hypertension Diabetes CAD (coronary artery disease) Son Hypertension Surgical History History of appendectomy History of cholecystectomy History of coronary artery bypass graft x 2 (~2009) History of hysterectomy History of left heart catheterization (LHC) (~02/27/21) History of open reduction and internal fixation (ORIF) procedure Social History Smoking Status: Light Smoker (<10/day) alcohol intake: current alcohol intake frequency: 3 or more drinks per day Alcohol type: beer substance use type: does not use caffeine: Yes Type: coffee Number of servings: 1 what type of physical activity do you participate in: walking frequency: daily duration: 15-30 minutes/day seatbelt use: always do you feel safe at home: Yes ROS ROS ED Constitutional Constitutional ED: Reports fever(s); Denies chills Eyes Eyes: Denies change in vision or discharge from eye(s) ENT ENT ED: Denies discharge from eye(s), rhinorrhea or sore throat Cardiovascular Cardiovascular: Reports chest pain; Denies palpitations Respiratory/Chest Respiratory/Chest: Reports cough and dyspnea Gastrointestinal Gastrointestinal: Denies abdominal pain, diarrhea, nausea or vomiting Genitourinary Genitourinary ED: Denies dysuria Musculoskeletal Musculoskeletal: Denies back pain or extremity pain Integumentary Denies Abrasions or rash Neurologic Neurologic: Denies headache(s) or weakness Psychiatric Psychiatric: Denies anxiety or depression Allergic/Immunologic Allergic/Immunologic ED: Denies lip swelling or urticaria EXAM Physical Exam Const Vital Signs: 02/26/22 18:23 02/26/22 19:03 02/26/22 19:04 Temperature 96.8 F L Temperature Source Temporal Pulse Rate 79 Respiratory Rate 25 H Respiratory Effort Short of Breath Blood Pressure 172/71 H Blood Pressure Mean 104 Pulse Ox 95 Oxygen Delivery Method Room Air Room Air 02/26/22 19:20 02/26/22 20:03 02/26/22 21:04 Temperature Temperature Source Pulse Rate 77 69 76 Respiratory Rate 16 18 14 Respiratory Effort Blood Pressure 154/76 H 168/85 H 161/84 H Blood Pressure Mean 102 112 109 Pulse Ox 93 94 93 Oxygen Delivery Method Room Air Room Air Room Air Positive well nourished and well developed General Appearance ED: well developed HEENT Reports normocephalic and head/scalp atraumatic Eyes PERRL and EOMs intact bilaterally Neck supple Chest Wall inspection of chest normal and palpation of chest normal Resp normal respiratory effort and clear to auscultation bilaterally Cardio regular rate and regular rhythm GI normal to inspection, nondistended, normoactive bowel sounds Palpation: soft Extremity normal to inspection Neuro oriented x3 and no sensory deficits noted Sensorium / Orientation: alert Motor Exam: strength 5/5 throughout Psych Mood & Affect: anxious Skin no rashes or lesions noted Heart Score History: Slightly/Non-Suspicious ECG: Nonspecific Repolarization Age: >45 - <65 years Risk Factors: >/= 3 Risk Factors or History of CAD Troponin: </= Normal Limit Score: 4 MDM MDM MDM Narrative Medical decision making narrative: Patient was given aspirin along with morphine and Phenergan for pain and nausea. Lab work obtained along with EKG and chest x-ray. Lab Data Attestation: I reviewed the patient's lab results. Labs: Laboratory Results - last 24 hr 02/26/22 02/26/22 02/26/22 18:30 18:30 18:30 WBC 8.9 RBC 5.29 Hgb 15.8 H Hct 48.4 H MCV 91.5 MCH 29.9 MCHC 32.6 RDW Std Deviation 46.1 H RDW Coeff of Bel 13.6 Plt Count 360 MPV 10.1 Immature Gran % (Auto) 0.500 Neut % (Auto) 74.6 H Lymph % (Auto) 16.9 L Nobles % (Auto) 7.3 Eos % (Auto) 0.2 Baso % (Auto) 0.5 Absolute Neuts (auto) 6.6 Absolute Lymphs (auto) 1.50 Nucleated RBC % 0 D-Dimer Quant (PE/DVT) 1.23 H* Sodium 138 Potassium 2.7 L* Chloride 97 L Carbon Dioxide 35.0 H Anion Gap 6 BUN 11 Creatinine 0.74 Estim Creat Clear Calc 61.54 Est GFR (MDRD) Af Amer 101 Est GFR (MDRD) Non-Af 84 BUN/Creatinine Ratio 14.8 Glucose 133 H Calcium 9.4 Total Bilirubin Direct Bilirubin AST ALT Alkaline Phosphatase Troponin I High Sens 15 Total Protein Albumin Globulin Lipase 02/26/22 02/26/22 18:30 20:25 WBC RBC Hgb Hct MCV MCH MCHC RDW Std Deviation RDW Coeff of Bel Plt Count MPV Immature Gran % (Auto) Neut % (Auto) Lymph % (Auto) Nobles % (Auto) Eos % (Auto) Baso % (Auto) Absolute Neuts (auto) Absolute Lymphs (auto) Nucleated RBC % D-Dimer Quant (PE/DVT) Sodium Potassium Chloride Carbon Dioxide Anion Gap BUN Creatinine Estim Creat Clear Calc Est GFR (MDRD) Af Amer Est GFR (MDRD) Non-Af BUN/Creatinine Ratio Glucose Calcium Total Bilirubin 0.20 Direct Bilirubin 0.11 AST 36 ALT 26 Alkaline Phosphatase 131 H Troponin I High Sens 12 Total Protein 8.3 H Albumin 3.1 L Globulin 5.2 H Lipase 6339 H Radiography Chest X-Ray - ED: 1 View, Read by ED Physician and Chronic Changes Diagnostic Testing: Clinical Impression(s) from Imaging Studies Chest X-Ray 02/26/22 19:52 IMPRESSION: Poor inspiration with some bibasilar atelectasis. Electronically Signed: Pino Reynoso MD at 20:11 EST , Chest CTA 02/26/22 20:01 IMPRESSION: 1. No CT evidence of pulmonary embolism. 2. Mild bilateral subsegmental atelectasis or pneumonitis. Commonly reported imaging features of Covid 19 pneumonia are present. 3. Suspect acute pancreatitis. Electronically Signed: Pino Reynoso MD at 20:59 EST , EKG Initial EKG: Attestation: I personally reviewed and interpreted this EKG as follows: Interpretation: Sinus Rhythm (Sinus at 77. Abnormal ST-T segment on V1, V2 but unchanged when compared to prior study.) Treatment and Re-Evaluation Narrative: CBC reveals hemoglobin concentrated at 15.8. White count is normal. Chemistry studies significant for potassium low at 2.7. IV potassium replacement has been ordered. Renal function is normal. Initial troponin is normal at 15 and delta troponin is 12. LFTs reveal an elevated alk phos. Lipase is elevated at 6300. D-dimer returns at 1.23 and patient does undergo CTA of the chest. There is no evidence of pulmonary embolism but acute pancreatitis is suspected. Patient is required a couple doses of pain medication here for comfort. I discussed with her best course of treatment is to stay in the hospital for hydration and treatment of her pancreatitis. She declines any history of gallstones but does admit to a history of drinking alcohol. Patient be discussed with the hospitalist. Discharge Plan Dx/Rx/DC Orders Clinical Impression: Acute pancreatitis, Hypokalemia Disposition Disposition: Acute Care Hospital [facility]
[2022-02-26 19:20] VITALS: BP 154/76; PULSE 77; RESP 16; O2SAT 93
[2022-02-26] MEDS: proMETHazine 25 MG/ML Syringe 6.25 MG IM (19:24)
[2022-02-26] MEDS: Morphine 4 MG/ML Syringe IV (19:24)
[2022-02-26] MEDS: Aspirin 81 MG TAB.CHEW 324 MG PO (19:25)
[2022-02-26] MEDS: 0.9% Normal Saline 1,000 ML 150 ML IV (19:38)
[2022-02-26] MEDS: Potassium Chloride 10mEq/100mL 10 MEQ/100 ML IV.SOLN. 100 MEQ IV BOLUS ×4 (19:38→23:10)
--- NOTE | 2022-02-26 19:52 | RAD_ITS ---
STUDY: X-RAY CHEST REASON FOR EXAM: Female, 62 years old. chest pain TECHNIQUE: Single AP portable view of the chest. COMPARISON: 03/09/2021 FINDINGS: Status post median sternotomy. Poor inspiration with some bibasilar atelectasis. There is no demonstrated pleural abnormality. There is moderate cardiac enlargement. Normal mediastinum and félix. Normal visualized pulmonary arteries. Normal visualized aortic arch and descending thoracic aorta. Normal visualized thoracic spine. Normal visualized ribs, clavicles, and shoulders. There is no demonstrated abnormality of the visualized soft tissue structures of the upper abdomen. RAD/Chest 1 View (Portable) IMPRESSION: Poor inspiration with some bibasilar atelectasis. Electronically Signed: Pino Reynoso MD at 20:11 EST ,
[2022-02-26 19:55] LABS: D-Dimer Quantitative (DVT/PE) 1.23 FEU/ug/m (0.27-0.49)
--- NOTE | 2022-02-26 20:01 | CT_ITS ---
STUDY: CTA CHEST REASON FOR EXAM: Female, 62 years old. chest pain, elevated d-dimer. Please comment on pancreas due to elevated lipase. RADIATION DOSAGE (If Supplied By Facility): CTDIvol = ( 12.87 ) mGy, DLP = ( 471.85 ) mGycm TECHNIQUE: The examination was performed with the intravenous administration of IV 100mL Isovue-370. Post-processing of the angiographic images was performed, with multiplanar reformation and 3D reconstruction. Individualized dose optimization techniques were used for this CT. COMPARISON: 02/14/2021, chest x-ray earlier today FINDINGS: Status post median sternotomy. Normal enhancement of the main pulmonary artery and right and left pulmonary arteries. Normal enhancement of the bilateral peripheral pulmonary arteries. There is no demonstrated pulmonary embolism. Normal thoracic aorta and visualized great vessels. There is no demonstrated aortic dissection. Normal heart and pericardium. Normal mediastinum. Normal hilar regions. Normal visualized trachea and bronchi. The lungs are well expanded. Bilateral peripheral groundglass opacities consistent with mild subsegmental atelectasis or pneumonitis. Commonly reported imaging features of Covid 19 pneumonia are present. Other processes such as influenza pneumonia and organizing pneumonia as can be seen with drug toxicity and connective tissue disease can cause a similar imaging pattern. No noncalcified nodule or mass. Normal pleura. Normal chest wall structures. Normal osseous structures. Subtle stranding of the fat surrounding the pancreas suggestive of acute pancreatitis. Clinical correlation is recommended. CT/CTA Chest W/WO Contrast IMPRESSION: 1. No CT evidence of pulmonary embolism. 2. Mild bilateral subsegmental atelectasis or pneumonitis. Commonly reported imaging features of Covid 19 pneumonia are present. 3. Suspect acute pancreatitis. Electronically Signed: Pino Reynoso MD at 20:59 EST ,
[2022-02-26 20:03] VITALS: BP 168/85; PULSE 69; RESP 18; O2SAT 94
[2022-02-26 20:11] LABS: AST(SGOT) 36 U/L (15-37); Alanine Aminotransfer ALT/SGPT 26 U/L (13-56); Albumin, Serum 3.1 g/dL (3.2-5.0); Alkaline Phosphatase 131 U/L (45-117); Bilirubin, Direct 0.11 mg/dL (0.00-0.30); Globulin 5.2 g/dL (2.2-4.2); Lipase 6339 U/L (73-393); Protein, Total 8.3 g/dL (6.4-8.2)
[2022-02-26 21:04] VITALS: BP 161/84; PULSE 76; RESP 14; O2SAT 93
[2022-02-26 21:15] LABS: Troponin-I HS 12 pg/mL (3.0-54.0)
[2022-02-26 22:15] VITALS: BP 169/89; PULSE 81; RESP 16; O2SAT 93
[2022-02-26] MEDS: HYDROmorphone 0.5 MG/0.5 ML SYRINGE IV (22:16)
--- NOTE | 2022-02-26 23:08 | PCM.HP.STD ---
HPI - General General Date of Admission: 02/26/22 Date of Service: 02/26/22 Chief Complaint: Chest pain HPI Narrative TAWANA ALBERTS, is a 62 F with a significant history of alcoholism; CAD status post CABG who presents emergency department with excruciating substernal chest pain that started on the same day of presentation. She describes her pain as feeling like she is going to explode. The pain radiates to her back. She denies any aggravating factors to the pain. She received some pain medication at the emergency department and that helped with her pain. She reports nausea and vomiting. She reports anorexia. Patient reports being diagnosed with RSV and flu a day before presentation. She reports fever. She reports a nonproductive cough. [facility] Medical History Acute on chronic systolic (congestive) heart failure Acute systolic (congestive) heart failure Atherosclerosis of [place] coronary artery of [place] heart without angina pectoris Chest pain Congestive heart failure Dyspnea Essential hypertension GERD (gastroesophageal reflux disease) Heart attack Hypothyroidism Hypoxemia Mixed hyperlipidemia Smoker Valvular heart disease Home Medications omeprazole 40 mg capsule,delayed release 40 mg PO DAILY #90 caps 04/14/17 [Rx Last Taken 02/27/21] venlafaxine 75 mg capsule,extended release 24 hr (Effexor XR) 75 mg PO DAILY mental health 02/23/18 [History Last Taken 02/27/21] levothyroxine 25 mcg tablet 25 mcg PO DAILY thyroid 07/19/19 [History Last Taken 02/27/21] cyclobenzaprine 10 mg tablet 10 mg PO Q8H PRN Muscle spams 02/24/21 [History Last Taken 02/27/21] furosemide 40 mg tablet 40 mg PO DAILY diuretic 02/24/21 [History Last Taken 02/27/21] ondansetron 4 mg disintegrating tablet 4 mg PO Q8H PRN Nausea 02/24/21 [History Last Taken Unknown] carvedilol 25 mg tablet 25 mg PO BID #180 tabs 02/27/21 [Rx Last Taken Unknown] clopidogrel 75 mg tablet 75 mg PO DAILY #30 tabs 03/02/21 [Rx Last Taken 05/12/21 08:58] acetaminophen 500 mg tablet 1,000 mg PO Q6H PRN pain #100 tabs 05/15/21 [Rx Last Taken Unknown] iawscst-xygpawylntwxu-coarxktg 250 mg-250 mg-65 mg tablet (Excedrin Migraine) 1 tab PO .COMPLEX 09/15/21 [History Last Taken Unknown] atorvastatin 40 mg tablet 80 mg PO QHS 09/15/21 [History Last Taken Unknown] cyclobenzaprine 10 mg tablet 10 mg PO HS 02/05/22 [History Last Taken Unknown] isosorbide mononitrate 30 mg tablet,extended release 24 hr 60 mg PO DAILY #90 tabs 02/05/22 [Rx Last Taken Unknown] yxulxpbcyvbo-rxueygpm-zxrnkf tablet 1 tab PO DAILY 02/05/22 [History Last Taken Unknown] nitroglycerin 0.4 mg sublingual tablet 0.4 mg sublingual Q5-15M PRN Chest Pain #25 tabs 02/05/22 [Rx Last Taken Unknown] Allergy/AdvReac Type Severity Reaction Status Date / Time No Known Allergies Allergy Verified 02/26/22 18:23 Family History Father CAD (coronary artery disease) Afib Hypertension Mother Hypertension Diabetes CAD (coronary artery disease) Son Hypertension Surgical History History of appendectomy History of cholecystectomy History of coronary artery bypass graft x 2 (~2009) History of hysterectomy History of left heart catheterization (LHC) (~02/27/21) History of open reduction and internal fixation (ORIF) procedure Social History Smoking Status: Light Smoker (<10/day) alcohol intake: current alcohol intake frequency: 3 or more drinks per day Alcohol type: beer substance use type: does not use caffeine: Yes Type: coffee Number of servings: 1 what type of physical activity do you participate in: walking frequency: daily duration: 15-30 minutes/day seatbelt use: always do you feel safe at home: Yes ROS ROS Narrative Pertinent positives and pertinent negatives as noted in HPI. All other systems were reviewed and are negative Vital Signs Vital Signs Vital Signs: 02/26/22 18:23 02/26/22 19:03 02/26/22 19:04 Temperature 96.8 F L Temperature Source Temporal Pulse Rate 79 Respiratory Rate 25 H Respiratory Effort Short of Breath Blood Pressure 172/71 H Blood Pressure Mean 104 Pulse Ox 95 Oxygen Delivery Method Room Air Room Air 02/26/22 19:20 02/26/22 20:03 02/26/22 21:04 Temperature Temperature Source Pulse Rate 77 69 76 Respiratory Rate 16 18 14 Respiratory Effort Blood Pressure 154/76 H 168/85 H 161/84 H Blood Pressure Mean 102 112 109 Pulse Ox 93 94 93 Oxygen Delivery Method Room Air Room Air Room Air 02/26/22 22:15 Temperature Temperature Source Pulse Rate 81 Respiratory Rate 16 Respiratory Effort Blood Pressure 169/89 H Blood Pressure Mean 115 Pulse Ox 93 Oxygen Delivery Method Room Air Weight Weight: 70.76 kg Body Mass Index (BMI) 28.5 Physical Exam Narrative Physical exam: General: Well-nourished, well-developed. Head: Normocephalic, atraumatic, no tenderness Eyes: Vision is grossly intact. EOMI ENT, no trauma, moist mucous membranes, no rhinorrhea Neck: Nontender, No thyromegaly. CVS: Regular rate and rhythm. S1-S2 present. No murmur, gallop or rub. Respiratory : Mild rhonchi , chest wall nontender, no wheezing Abdomen: Soft, nontender, nondistended, normal bowel sounds, no masses : Deferred Back: Nontender, no CVA tenderness, no midline spinal tenderness, deformities, step-offs Extremities: Nontender full range of motion, no trauma Skin: Normal color, no trauma, abrasions Neuro: Alert, oriented, cranial nerves II through XII grossly intact. Psychiatry: Normal mood. Normal affect. Not depressed. Not anxious. Results Lab / Micro Data Result Diagrams: 02/26/22 18:30 02/26/22 18:30 Labs: Laboratory Results - last 24 hr 02/26/22 18:30: WBC 8.9, RBC 5.29, Hgb 15.8 H, Hct 48.4 H, MCV 91.5, MCH 29.9, MCHC 32.6, RDW Std Deviation 46.1 H, RDW Coeff of Bel 13.6, Plt Count 360, MPV 10.1, Immature Gran % (Auto) 0.500, Neut % (Auto) 74.6 H, Lymph % (Auto) 16.9 L, [place] % (Auto) 7.3, Eos % (Auto) 0.2, Baso % (Auto) 0.5, Absolute Neuts (auto) 6.6, Absolute Lymphs (auto) 1.50, Nucleated RBC % 0 02/26/22 18:30: Sodium 138, Potassium 2.7 L*, Chloride 97 L, Carbon Dioxide 35.0 H, Anion Gap 6, BUN 11, Creatinine 0.74, Estim Creat Clear Calc 61.54, Est GFR (MDRD) Af Amer 101, Est GFR (MDRD) Non-Af 84, BUN/Creatinine Ratio 14.8, Glucose 133 H, Calcium 9.4, Troponin I High Sens 15 02/26/22 18:30: D-Dimer Quant (PE/DVT) 1.23 H* 02/26/22 18:30: Total Bilirubin 0.20, Direct Bilirubin 0.11, AST 36, ALT 26, Alkaline Phosphatase 131 H, Total Protein 8.3 H, Albumin 3.1 L, Globulin 5.2 H, Lipase 6339 H 02/26/22 20:25: Troponin I High Sens 12 Radiology Impression Chest X-Ray 02/26/22 19:52 IMPRESSION: Poor inspiration with some bibasilar atelectasis. Electronically Signed: Pino Reynoso MD at 20:11 EST Reading Location ID and State: [id number] / [employer] Tel , Service support , Chest CTA 02/26/22 20:01 IMPRESSION: 1. No CT evidence of pulmonary embolism. 2. Mild bilateral subsegmental atelectasis or pneumonitis. Commonly reported imaging features of Covid 19 pneumonia are present. 3. Suspect acute pancreatitis. Electronically Signed: Pino Reynoso MD at 20:59 EST Reading Location ID and State: [id number] / [employer] Tel , Service support , Assessment & Plan Assessment/Plan (1) Acute pancreatitis: (2) Hypokalemia: (3) Prolonged Q-T interval on ECG: PLAN: Plan Acute alcoholic pancreatitis Drinks several bottles of [place] Light daily. Lipase level: 6339 CTA chest with pancreatic inflammation. I agree with radiologist interpretation Hematocrit: 15.8; highest on file so far. BUN: 11, normal. Lactated Ringer's with 40 mEq of potassium at 150 ml/hr ordered Pain regimen: Received morphine IV Dilaudid IV at emergency department. Dilaudid IV as needed ordered. Antiemetics: Received Phenergan IM (Zofran avoided) at the emergency department because her QTc interval was prolonged. Compazine IV ordered. Clear liquid diet ordered. BMP showed calcium of 9.4. Pancreatitis not due to hypercalcemia. Alkaline phosphatase is chronic and elevated. Patient has a history of cholecystectomy so ultrasound gallbladder not ordered. Check lipid level. Hypokalemia Potassium 2.7 on presentation. Received IV replacement in the emergency department. Lactated Ringer's with 40 mEq of potassium ordered.. Alcoholism Placed on CIWA protocol. As needed Ativan IV ordered. Folic acid and multivitamins ordered History of CAD Presented with chest pain. Troponin x2 negative. Chest pain likely from pancreatitis. Home regimen continued Prolonged QTc interval QTC of 500. Avoid QTC prolongation drugs. DVT prophylaxis: SCDs ordered Charges/Coding Visit Charges Inpatient E&M: 06396 Init Hosp L3
[2022-02-26 23:29] VITALS: BP 154/93; PULSE 74; RESP 14; TEMP 36.8; O2SAT 93
[2022-02-27] VITALS (13 sets, daily range): BP systolic 134–170; BP diastolic 62–89; PULSE 54–78; RESP 16–20; TEMP 36.3–36.8; O2SAT 95–99; BMI 29.0
[2022-02-27] MEDS: HYDROmorphone 0.5 MG/0.5 ML SYRINGE IV (02:43)
[2022-02-27] MEDS: 0.9% Saline Lock 10 ML Syringe IV ×4 (02:43→18:14)
[2022-02-27] MEDS: Ketorolac 15 MG/ML Vial IV ×3 (04:53→18:14)
[2022-02-27] MEDS: Levothyroxine 25 MCG TABLET PO (06:45)
--- NOTE | 2022-02-27 07:22 | PN.HOSP_ITS ---
Subjective Subjective Still with abdominal pain. Now is feeling slightly better Objective Data Objective Data Vital Signs: Vital Signs Temp Pulse Resp BP Pulse Ox O2 Del Method O2 Flow Rate 36.6 C 78 20 H 149/78 H 96 Nasal Cannula 2 02/27/22 02:25 02/27/22 04:47 02/27/22 02:25 02/27/22 02:25 02/27/22 02:25 02/27/22 02:25 02/27/22 02:25 Oxygen Flow Rate (L/min) 2 Oxygen Delivery Method Nasal Cannula Weight: 71.6 kg Body Mass Index (BMI) 29.0 Intake & Output: Intake and Output for Last 24 Hours 02/25/22 02/26/22 02/27/22 23:59 23:59 23:59 Intake Total 300 / 300 1300 / 1300 Balance 300 / 300 1300 / 1300 Lab / Micro Data Result Diagrams: 02/26/22 18:30 02/27/22 07:04 Labs: Laboratory Results - last 24 hr 02/26/22 18:30: WBC 8.9, RBC 5.29, Hgb 15.8 H, Hct 48.4 H, MCV 91.5, MCH 29.9, MCHC 32.6, RDW Std Deviation 46.1 H, RDW Coeff of Bel 13.6, Plt Count 360, MPV 10.1, Immature Gran % (Auto) 0.500, Neut % (Auto) 74.6 H, Lymph % (Auto) 16.9 L, [place] % (Auto) 7.3, Eos % (Auto) 0.2, Baso % (Auto) 0.5, Absolute Neuts (auto) 6.6, Absolute Lymphs (auto) 1.50, Nucleated RBC % 0 02/26/22 18:30: Sodium 138, Potassium 2.7 L*, Chloride 97 L, Carbon Dioxide 35.0 H, Anion Gap 6, BUN 11, Creatinine 0.74, Estim Creat Clear Calc 61.54, Est GFR (MDRD) Af Amer 101, Est GFR (MDRD) Non-Af 84, BUN/Creatinine Ratio 14.8, Glucose 133 H, Calcium 9.4, Troponin I High Sens 15 02/26/22 18:30: D-Dimer Quant (PE/DVT) 1.23 H* 02/26/22 18:30: Total Bilirubin 0.20, Direct Bilirubin 0.11, AST 36, ALT 26, Alkaline Phosphatase 131 H, Total Protein 8.3 H, Albumin 3.1 L, Globulin 5.2 H, Lipase 6339 H 02/26/22 20:25: Troponin I High Sens 12 Radiography Diagnostic Testing: Radiology Impression Chest X-Ray 02/26/22 19:52 IMPRESSION: Poor inspiration with some bibasilar atelectasis. Electronically Signed: Pino Reynoso MD at 20:11 EST , Chest CTA 02/26/22 20:01 IMPRESSION: 1. No CT evidence of pulmonary embolism. 2. Mild bilateral subsegmental atelectasis or pneumonitis. Commonly reported imaging features of Covid 19 pneumonia are present. 3. Suspect acute pancreatitis. Electronically Signed: Pino Reynoso MD at 20:59 EST , Physical Exam Const alert and no apparent distress HEENT head/scalp atraumatic and moist oral mucous membranes Resp normal respiratory effort, no retractions, no use of accessory muscles and clear to auscultation bilaterally Cardio regular rate, regular rhythm, S1 normal heart sound and S2 normal heart sound GI normal to inspection, nondistended, normoactive bowel sounds, soft to palpation, non-tender and non-distended Assessment & Plan Assessment/Plan (1) Acute pancreatitis: PLAN: Acute alcoholic pancreatitis Drinks several bottles of [place] Light daily. Lipase level: 6339 CTA chest with pancreatic inflammation. Hematocrit: 15.8; highest on file so far. BUN: 11, normal. Lactated Ringer's with 40 mEq of potassium at 150 ml/hr ordered Pain regimen: Received morphine IV Dilaudid IV at emergency department. Dilaudid IV as needed ordered. Antiemetics: Received Phenergan IM (Zofran avoided) at the emergency department because her QTc interval was prolonged. Compazine IV ordered. Clear liquid diet ordered. BMP showed calcium of 9.4. Pancreatitis not due to hypercalcemia. Alkaline phosphatase is chronic and elevated. Patient has a history of cholecystectomy so ultrasound gallbladder not ordered. Check lipid level. (2) Hypokalemia: PLAN: Hypokalemia Potassium 2.7 on presentation. Received IV replacement in the emergency department. Lactated Ringer's with 40 mEq of potassium ordered.. (3) Prolonged Q-T interval on ECG: PLAN: Prolonged QTc interval QTC of 500. Avoid QTC prolongation drugs. Correct electrolytes. Potassium is unremarkable potassium is at 1.8. Will give potassium supplementation. (4) Alcoholism: PLAN: Alcoholism Placed on CIWA protocol. As needed Ativan IV ordered. Folic acid and multivitamins ordered (5) Influenza A: PLAN: Start Tamiflu PLAN: Plan History of CAD: Presented with chest pain. Troponin x2 negative. Chest pain likely from pancreatitis. Home regimen continued DVT prophylaxis: SCDs ordered Charges/Coding Visit Charges Inpatient E&M: 30573 Subs Hosp L2
[2022-02-27 08:23] LABS: ALB/GLOB Ratio 0.7 RATIO (0.9-2.4); AST(SGOT) 21 U/L (15-37); Alanine Aminotransfer ALT/SGPT 15 U/L (13-56); Albumin, Serum 2.4 g/dL (3.2-5.0); Alkaline Phosphatase 95 U/L (45-117); Anion Gap 3 (5-15); BUN 9 mg/dL (7-18); Calcium,Total 8.6 mg/dL (8.5-10.1); Chloride 104 mmol/L (98-107); Cholesterol 131 mg/dL (200); Creatinine, Serum 0.56 mg/dL (0.55-1.02); EST Glomerular Filtration Rate 116 mL/min (>60); Est Glom Filt Rate - Afr Amer 140 mL/min (>60); Estimated Creatinine Clearance 77.59 ml/min; Globulin 3.5 g/dL (2.2-4.2); Glucose 81 mg/dL (74-106); High Density Lipoprotein 40 mg/dL; Magnesium 1.8 mg/dL (1.6-2.6); Protein, Total 5.9 g/dL (6.4-8.2); Sodium Level 138 mmol/L (136-145); Triglycerides 232 mg/dL; Very Low Density Lipoprotein 46 mg/dL (5-40)
[2022-02-27] MEDS: Thiamine Hydrochloride 100 MG Tablet PO (09:22)
[2022-02-27] MEDS: Multivitamins,Ther W-Minerals Tablet 1 TABLET PO (09:22)
[2022-02-27] MEDS: Carvedilol 25 MG Tablet PO (09:22)
[2022-02-27] MEDS: Folic Acid 1 MG Tablet PO (09:22)
[2022-02-27] MEDS: Clopidogrel Bisulfate 75 MG Tablet PO (09:23)
[2022-02-27] MEDS: Isosorbide Mononitrate 60 MG Tablet PO (09:23)
[2022-02-27] MEDS: Pantoprazole Sodium 40 MG Tablet PO (09:24)
[2022-02-27] MEDS: Acetaminophen 500 MG Tablet 1000 MG PO ×2 (09:38→15:51)
[2022-02-27] MEDS: Venlafaxine XR 75 MG Capsule PO (11:44)
--- NOTE | 2022-02-27 15:46 | CASEMGMT ---
RN ANASTASIIA Assessment: Face to Face with pt for initial transition planning/care coordination assessment. RN CM introduced self and role at [facility], pt voices understanding and consents to assessment. Pt is A/O x4 and answers all questions appropriately at this time. Pt lying in bed with oxygen on in no distress. Nurse at bedside. Care providers, pharmacy, and demographics verified/updated. Admitting Dx: acute pancreatitis PCP:[facility] Specialists:Debora cardio [facility]erred [facility]acy: [facility] Insurance: MMO Prescription Benefit: yes LNOK: Juan Mahan, son Living Arrangements: Pt lives alone in a single story house with 2 steps to enter. Pt reports she is I in ADL's and denies concerns at home. Transportation: Pt drives self and denies concerns with transportation. DME/HHC/SNF: Pt denies having any DME in the home, previous HHC or SNF stays. Pt states no concerns with going home at time of dc. Pt states no further concerns/needs. CM to follow. Advised pt to ask CM if any further question/concerns/needs arise, voices understanding. Pt Goal: Home Plan: Home
[2022-02-27] MEDS: Oseltamivir Phosphate 75 MG Capsule PO ×2 (15:51→21:55)
--- NOTE | 2022-02-27 18:24 | NURSING ---
Dr. Mckinnon notified pt is c/o heartburn, 11/28, denies it being chest pain (cardiac). Wants something for this, had pronotix this am. Dr. Mckinnon called with new orders.
[2022-02-27] MEDS: Mag Hydrox/Al Hydrox/Simeth 30 ML UDC 15 ML PO (18:40)
[2022-02-27] MEDS: cycloBENZAPRine HCl 10 MG Tablet PO (21:55)
[2022-02-28] VITALS (27 sets, daily range): BP systolic 127–195; BP diastolic 63–122; PULSE 68–99; RESP 12–32; TEMP 36.5–37.7; O2SAT 93–100
[2022-02-28] MEDS: Mag Hydrox/Al Hydrox/Simeth 30 ML UDC 15 ML PO (01:44)
[2022-02-28] MEDS: HYDROmorphone 0.5 MG/0.5 ML SYRINGE IV (01:45)
[2022-02-28] MEDS: Acetaminophen 500 MG Tablet 1000 MG PO ×2 (03:11→08:52)
[2022-02-28 05:57] LABS: Absolute Lymphocyte Count 2.32 X10^3/uL (0.83-4.51); Absolute Neutrophil Count 3.4 X10^3/uL (2.0-7.7); Basophil# 0.03 X10^3/uL; Basophil% 0.5 % (0-1); Eosinophil# 0.11 X10^3/uL; Eosinophils% 1.7 % (0-5); Hematocrit 40.4 % (37-47); Hemoglobin 13.3 g/dL (12.0-15.0); Lymphocyte # 2.32 X10^3/ul (0.83-4.51); Lymphocyte % 36.8 % (19-41); Mean Corp Hgb Conc 32.9 g/dL (32-36); Mean Corpuscular Hgb 30.9 pg (27.0-32.0); Mean Corpuscular Volume 93.7 fL (81-99); Mean Platelet Vol. 10.3 fl (6.2-12.0); Monocyte# 0.45 X10^3/uL; Monocyte% 7.1 % (0-10); NRBC Flagged by Analyzer 0 % (0-5); Neutrophil # 3.37 X10^3/uL (2.7-7.7); Neutrophil % 53.4 % (47-70); Platelet Count 249 K/mm3 (150-450); RBC Distribution Width CV 13.7 % (11.6-14.6); RBC Distribution Width SD 47.6 fl (35.1-43.9); Red Blood Count 4.31 M/mm3 (4.2-5.4); White Blood Count 6.3 K/mm3 (4.4-11.0)
[2022-02-28 06:34] LABS: Anion Gap 4 (5-15); BUN 9 mg/dL (7-18); BUN/Creat Ratio 18.9 RATIO (10-20); Calcium,Total 8.4 mg/dL (8.5-10.1); Chloride 112 mmol/L (98-107); Creatinine, Serum 0.48 mg/dL (0.55-1.02); EST Glomerular Filtration Rate 140 mL/min (>60); Est Glom Filt Rate - Afr Amer 170 mL/min (>60); Estimated Creatinine Clearance 90.52 ml/min; Glucose 78 mg/dL (74-106); Potassium 5.7 mmol/L (3.5-5.1); Sodium Level 136 mmol/L (136-145)
[2022-02-28] MEDS: Levothyroxine 25 MCG TABLET PO (06:52)
--- NOTE | 2022-02-28 07:32 | PN.HOSP_ITS ---
Subjective Subjective Short of breath despite normal pulse ox. Abdomen hurts to take in deep breath. Objective Data Objective Data Vital Signs: Vital Signs Temp Pulse Resp BP Pulse Ox O2 Del Method O2 Flow Rate 36.5 C L 68 17 161/82 H 94 Room Air 2 02/28/22 03:09 02/28/22 06:00 02/28/22 03:09 02/28/22 03:09 02/28/22 03:09 02/28/22 03:22 02/27/22 21:50 Oxygen Flow Rate (L/min) 2 Oxygen Delivery Method Room Air Weight: 71.6 kg Body Mass Index (BMI) 29.0 Intake & Output: Intake and Output for Last 24 Hours 02/26/22 02/27/22 02/28/22 23:59 23:59 23:59 Intake Total 300 / 300 4629 / 4979 1770 / 1770 Balance 300 / 300 4629 / 4979 1770 / 1770 Lab / Micro Data Result Diagrams: 02/28/22 05:35 02/28/22 09:20 Labs: Laboratory Results - last 24 hr 02/27/22 07:04: Sodium 138, Potassium 4.0, Chloride 104, Carbon Dioxide 31.0, Anion Gap 3 L, BUN 9, Creatinine 0.56, Estim Creat Clear Calc 77.59, Est GFR (MDRD) Af Amer 140, Est GFR (MDRD) Non-Af 116, BUN/Creatinine Ratio 16.0, Gluc ose 81, Calcium 8.6, Magnesium 1.8, Total Bilirubin 0.20, AST 21, ALT 15, Alkaline Phosphatase 95, Total Protein 5.9 L, Albumin 2.4 L, Globulin 3.5, Albumin/Globulin Ratio 0.7 L, Triglycerides 232 H, Cholesterol 131, LDL Cholesterol 45, VLDL Cholesterol 46 H, HDL Cholesterol 40 02/27/22 07:04: Magnesium Cancelled 02/28/22 05:35: WBC 6.3, RBC 4.31, Hgb 13.3, Hct 40.4, MCV 93.7, MCH 30.9, MCHC 32.9, RDW Std Deviation 47.6 H, RDW Coeff of Bel 13.7, Plt Count 249, MPV 10.3, Immature Gran % (Auto) 0.500, Neut % (Auto) 53.4, Lymph % (Auto) 36.8, [place] % (Auto) 7.1, Eos % (Auto) 1.7, Baso % (Auto) 0.5, Absolute Neuts (auto) 3.4, Absolute Lymphs (auto) 2.32, Nucleated RBC % 0 02/28/22 05:35: Sodium 136, Potassium 5.7 H, Chloride 112 H, Carbon Dioxide 20.0 L, Anion Gap 4 L, BUN 9, Creatinine 0.48 L, Estim Creat Clear Calc 90.52, Est GFR (MDRD) Af Amer 170, Est GFR (MDRD) Non-Af 140, BUN/Creatinine Ratio 18.9, Glucose 78, Calcium 8.4 L Physical Exam Const alert and no apparent distress Resp normal respiratory effort and no retractions Resp Narrative: Short shallow breaths Cardio regular rate and regular rhythm GI GI Narrative: Distended. Epigastric tenderness. Extremity normal to inspection Neuro Sensorium / Orientation: awake and alert Psych Mood & Affect: anxious Assessment & Plan Assessment/Plan (1) Acute pancreatitis: PLAN: Acute alcoholic pancreatitis: Drinks several bottles of [place] Light daily. Lipase level: 6339 CTA chest with pancreatic inflammation. Plan: * Continue IVF, pain control antiemetics (2) Hypokalemia: PLAN: Resolved, now hyperkalemic. DC IVF w potassium (3) Alcoholism: PLAN: Alcoholism Placed on CIWA protocol. As needed Ativan IV ordered. Folic acid and multivitamins ordered Has received as needed lorazepam. (4) Influenza A: PLAN: Start Tamiflu Will add prednisone Patient respiratory distress but is normal pulse ox on 3 L. Though is tachypneic. Check an ABG. PLAN: Plan History of CAD: Presented with chest pain. Troponin x2 negative. Chest pain likely from pancreatitis. Home regimen continued DVT prophylaxis: SCDs ordered Charges/Coding Visit Charges Inpatient E&M: 29152 Subs Hosp L2
[2022-02-28] MEDS: Venlafaxine XR 75 MG Capsule PO (08:42)
[2022-02-28] MEDS: Pantoprazole Sodium 40 MG Tablet PO (08:42)
[2022-02-28] MEDS: Carvedilol 25 MG Tablet PO ×2 (08:42→18:41)
[2022-02-28] MEDS: Clopidogrel Bisulfate 75 MG Tablet PO (08:42)
[2022-02-28] MEDS: Isosorbide Mononitrate 60 MG Tablet PO (08:42)
[2022-02-28] MEDS: Thiamine Hydrochloride 100 MG Tablet PO (08:42)
[2022-02-28] MEDS: Multivitamins,Ther W-Minerals Tablet 1 TABLET PO (08:42)
[2022-02-28] MEDS: Folic Acid 1 MG Tablet PO (08:42)
[2022-02-28] MEDS: Benzonatate 100 MG Capsule PO (08:52)
[2022-02-28] MEDS: guaiFENesin 10 ML UDC (200MG/10ML) PO (08:53)
[2022-02-28] MEDS: Oseltamivir Phosphate 75 MG Capsule PO ×2 (08:54→22:23)
[2022-02-28] MEDS: Albuterol 2.5 MG/3 ML VIAL.NEB. INHALATION ×4 (09:27→22:56)
[2022-02-28] MEDS: LORazepam 1 MG Tablet 2 MG PO (09:39)
[2022-02-28 09:47] LABS: Anion Gap 3 (5-15); BUN 9 mg/dL (7-18); BUN/Creat Ratio 16.9 RATIO (10-20); Chloride 110 mmol/L (98-107); Creatinine, Serum 0.53 mg/dL (0.55-1.02); EST Glomerular Filtration Rate 123 mL/min (>60); Est Glom Filt Rate - Afr Amer 149 mL/min (>60); Estimated Creatinine Clearance 81.98 ml/min; Glucose 93 mg/dL (74-106); Potassium 5.2 mmol/L (3.5-5.1); Sodium Level 139 mmol/L (136-145)
[2022-02-28] MEDS: predniSONE 20 MG Tablet 40 MG PO (12:53)
[2022-02-28] MEDS: LORazepam 2 MG/ML Syringe IV ×2 (13:06→15:54)
--- NOTE | 2022-02-28 13:08 | NURSING ---
Pt is impulsive and restless. CIWA score elevated. Spo2 @78 removing oxygen. She is placed on non rebreather mask and prn ativan is given. Pt is resting in bed. Bed alarm on active for pt impulsive and hypoxic.
[2022-02-28 13:16] LABS: Anion Gap 4 (5-15); BUN 9 mg/dL (7-18); BUN/Creat Ratio 15.7 RATIO (10-20); Chloride 109 mmol/L (98-107); Creatinine, Serum 0.57 mg/dL (0.55-1.02); EST Glomerular Filtration Rate 113 mL/min (>60); Est Glom Filt Rate - Afr Amer 137 mL/min (>60); Estimated Creatinine Clearance 76.23 ml/min; Glucose 113 mg/dL (74-106); Potassium 5.1 mmol/L (3.5-5.1); Sodium Level 138 mmol/L (136-145)
[2022-02-28 13:41] LABS: Base Excess -3 mmol/L (-2 to +2); Bicarbonate 23.8 mmol/L (22-26); Blood Gas Specimen Type ART; O2 Delivery Device NRB; PO2 189 mmHG (75-100); SO2 100 % (95-99); Total Carbon Dioxide 25 mmol/L; pCO2 50.6 mmHg (35-45); pH 7.28 (7.35-7.45)
[2022-02-28] MEDS: 0.9% Saline Lock 10 ML Syringe IV (15:54)
[2022-02-28] MEDS: Phenobarbital 32.4 MG Tablet 64.8 MG PO ×2 (18:37→21:45)
--- NOTE | 2022-02-28 18:40 | RAD_ITS ---
STUDY: X-RAY CHEST REASON FOR EXAM: Female, 62 years old. respiratory failure TECHNIQUE: Single AP portable view of the chest. COMPARISON: 02/26/2022 FINDINGS: Status post median sternotomy. Patchy alveolar opacities in both lungs consistent with bilateral pneumonia. There is no demonstrated pleural abnormality. There is moderate cardiac enlargement. Normal mediastinum and félix. Normal visualized pulmonary arteries. Normal visualized aortic arch and descending thoracic aorta. Normal visualized thoracic spine. Normal visualized ribs, clavicles, and shoulders. There is no demonstrated abnormality of the visualized soft tissue structures of the upper abdomen. RAD/Chest 1 View (Portable) IMPRESSION: Bilateral patchy pneumonia. Electronically Signed: Pino Reynoso MD at 18:57 EST ,
[2022-02-28 18:50] LABS: Allen Test Positive; Base Excess -2 mmol/L (-2 to +2); Blood Gas Specimen Type ART; FI02 30; O2 Delivery Device BiPAP; PEEP 8; PO2 39 mmHG (75-100); RR 12; SITE R Radial; SO2 76 % (95-99); Total Carbon Dioxide 23 mmol/L; pCO2 32.7 mmHg (35-45); pH 7.44 (7.35-7.45)
[2022-02-28 19:31] LABS: Allen Test Positive; Base Excess -3 mmol/L (-2 to +2); Bicarbonate 20.1 mmol/L (22-26); Blood Gas Specimen Type ART; FI02 30; O2 Delivery Device BiPAP; PEEP 8; PO2 115 mmHG (75-100); RR 12; SITE R Radial; SO2 99 % (95-99); Total Carbon Dioxide 21 mmol/L; Vt 450; pCO2 24.5 mmHg (35-45); pH 7.52 (7.35-7.45)
[2022-02-28 20:07] LABS: BNP,B-Type NATRIURETIC PEPTIDE 991.1 pg/mL (0-100)
--- NOTE | 2022-02-28 20:35 | PCM.RX.CS ---
Consult Pharmacy has been consulted to manage selected antiobiotic: Vancomycin Type of Consult: New start Prior Doses of Antibiotics Received/Current Regimen: Medications Vancomycin HCl (Vancomycin) 1,000 mg in 200 mls @ 200 mls/hr IV Q12H [place] Vancomycin HCl 1,750 mg/ (Sodium Chloride) 535 mls @ 250 mls/hr IV X1 ONE Stop: 02/28/22 21:38 Last Admin: 02/28/22 19:51 Dose: 250 mls/hr Labs: Sodium 138 mmol/L (136-145) 02/28/22 12:45 Potassium 5.1 mmol/L (3.5-5.1) 02/28/22 12:45 Chloride 109 mmol/L (98-107) H 02/28/22 12:45 Carbon Dioxide 25.0 mmol/L (21.0-32.0) 02/28/22 12:45 Anion Gap 4 (5-15) L 02/28/22 12:45 BUN 9 mg/dL (7-18) 02/28/22 12:45 Creatinine 0.57 mg/dL (0.55-1.02) 02/28/22 12:45 Est GFR (MDRD) Af Amer 137 mL/min (>60) 02/28/22 12:45 Est GFR (MDRD) Non-Af 113 mL/min (>60) 02/28/22 12:45 BUN/Creatinine Ratio 15.7 RATIO (10-20) 02/28/22 12:45 Glucose 113 mg/dL (74-106) H 02/28/22 12:45 Weight used for dosin.6 kg Estimated Creatinine Clearance: 76 Goal Trough: 15-20 mcg/mL Pharmacy Plan for Drug Dosing: Pharmacy Service will continue to monitor and adjust dosing as required. Follow-Up Labs: Trough Vancomycin Labs to be done on [date and time ordered]: 03/02/22 @[id number]
[2022-02-28] MEDS: cycloBENZAPRine HCl 10 MG Tablet PO (21:45)
--- NOTE | 2022-02-28 23:26 | CPS ---
Critical pAO2 value of 38.8, due to venous sample being obtained. Dr. Pratibha bourne.
[2022-03-01] VITALS (33 sets, daily range): BP systolic 122–151; BP diastolic 66–110; PULSE 63–85; RESP 12–30; TEMP 36.8–37.4; O2SAT 91–100
[2022-03-01] MEDS: LORazepam 2 MG/ML Syringe IV (00:54)
[2022-03-01] MEDS: Albuterol 2.5 MG/3 ML VIAL.NEB. INHALATION ×6 (02:05→23:45)
[2022-03-01] MEDS: Phenobarbital 32.4 MG Tablet 64.8 MG PO ×6 (02:28→21:12)
[2022-03-01] MEDS: Furosemide 40 MG/4 ML Vial IV (03:04)
[2022-03-01 03:24] LABS: Absolute Lymphocyte Count 1.35 X10^3/uL (0.83-4.51); Absolute Neutrophil Count 3.1 X10^3/uL (2.0-7.7); Basophil# 0.01 X10^3/uL; Basophil% 0.2 % (0-1); Hematocrit 38.2 % (37-47); Hemoglobin 12.4 g/dL (12.0-15.0); Lymphocyte # 1.35 X10^3/ul (0.83-4.51); Mean Corp Hgb Conc 32.5 g/dL (32-36); Mean Corpuscular Hgb 30.3 pg (27.0-32.0); Mean Corpuscular Volume 93.4 fL (81-99); Mean Platelet Vol. 10.5 fl (6.2-12.0); Monocyte# 0.21 X10^3/uL; Monocyte% 4.5 % (0-10); NRBC Flagged by Analyzer 0 % (0-5); Neutrophil # 3.08 X10^3/uL (2.7-7.7); Neutrophil % 66.1 % (47-70); Platelet Count 258 K/mm3 (150-450); RBC Distribution Width CV 13.7 % (11.6-14.6); Red Blood Count 4.09 M/mm3 (4.2-5.4); White Blood Count 4.7 K/mm3 (4.4-11.0)
[2022-03-01 03:39] LABS: ALB/GLOB Ratio 0.6 RATIO (0.9-2.4); AST(SGOT) 21 U/L (15-37); Alanine Aminotransfer ALT/SGPT 21 U/L (13-56); Albumin, Serum 2.2 g/dL (3.2-5.0); Alkaline Phosphatase 94 U/L (45-117); Anion Gap 8 (5-15); BUN 7 mg/dL (7-18); BUN/Creat Ratio 17.5 RATIO (10-20); Calcium,Total 8.3 mg/dL (8.5-10.1); Chloride 104 mmol/L (98-107); EST Glomerular Filtration Rate 171 mL/min (>60); Est Glom Filt Rate - Afr Amer 207 mL/min (>60); Estimated Creatinine Clearance 108.63 ml/min; Globulin 3.8 g/dL (2.2-4.2); Glucose 104 mg/dL (74-106); Potassium 4.7 mmol/L (3.5-5.1); Sodium Level 135 mmol/L (136-145)
[2022-03-01] MEDS: Levothyroxine 25 MCG TABLET PO (05:46)
--- NOTE | 2022-03-01 07:49 | CON.PCM.CC_ITS ---
Assessment & Plan Assessment/Plan (1) Influenza A: PLAN: Plan RECOMMENDATIONS: 1. Transition from BiPAP to nasal cannula oxygen. 2. Wean supplemental oxygen to maintain saturations at or above 90%. 3. Resume home diuretic regimen. 4. Continue medical management of alcohol withdrawal syndrome. 5. Continue scheduled bronchodilators and steroids. IMPRESSIONS: 1. Acute respiratory failure with hypoxemia and hypercapnia The patient may have pre-existing lung disease, in light of her smoking history, complicated by her current influenza A infection. In addition, she has been managed with supplemental IV fluids in light of her presenting pancreatitis and is currently overall 8 L positive for the hospitalization. She has a known depressed ejection fraction and an elevated BNP, making decompensated heart failure a potential etiology for her respiratory failure. The patient was given IV Lasix overnight and maintained on BiPAP therapy, with subsequent improvement this morning noted in her respiratory status. Plan to continue supplemental oxygen to maintain saturations at or above 90%. The patient will be continued on Tamiflu on account of her underlying influenza A. Plan to continue scheduled bronchodilators and IV steroids as well. Encourage incentive spirometer use and mobilize patient as tolerated. 2. Alcoholic pancreatitis Improved. Lipase is now within normal limits following IV fluid resuscitation. Okay to liberalize diet from my perspective. 3. Acute alcohol withdrawal Continue current medical management including phenobarbital taper, thiamine folic acid repletion. This note was generated with OpenS[employer]ame dictation software. It may contain incorrect words, spelling, and punctuation that were not noted in checking the note before signing. HPI Consult Data Date of Consult: 03/02/22 HPI Narrative Reason for Consultation: Respiratory failure HPI Narrative: The patient is a 62-year-old female, with a history as outlined below, who presented initially to the emergency department on February 26 with chest discomfort. The patient has a known history of coronary artery disease status post CABG. Initial laboratory evaluation revealed no evidence of a leukocytosis. D-dimer was noted to be 1.23. Chemistry profile was notable for a potassium of 2.7, bicarbonate of 35 and normal creatinine. Troponin was unremarkable. Lipase was elevated to 6339. COVID PCR was negative. The patient was noted to be positive for influenza A. CTA chest showed no evidence for pulmonary embolism. However, bilateral subpleural groundglass opacities were noted. The patient was initially admitted to the medical surgical floor for management of her alcoholic pancreatitis. The patient received supplemental IV fluid hydration and pain control. She was placed on the CIWA protocol. According to documentation, on the afternoon of February 28, the patient became increasingly anxious and more confused. An arterial blood gas was obtained which demonstrated a PCO2 of 50. The patient was subsequently placed on BiPAP and transferred to the medical intensive care unit. [facility] Medical History Acute on chronic systolic (congestive) heart failure Acute systolic (congestive) heart failure Atherosclerosis of [place] coronary artery of [place] heart without angina pectoris Chest pain Congestive heart failure Dyspnea Essential hypertension GERD (gastroesophageal reflux disease) Heart attack Hypothyroidism Hypoxemia Mixed hyperlipidemia Smoker Valvular heart disease Home Medications omeprazole 40 mg capsule,delayed release 40 mg PO DAILY #90 caps 04/14/17 [Rx Last Taken 02/27/21] venlafaxine 75 mg capsule,extended release 24 hr (Effexor XR) 75 mg PO DAILY mental health 02/23/18 [History Last Taken 02/27/21] levothyroxine 25 mcg tablet 25 mcg PO DAILY thyroid 07/19/19 [History Last Taken 02/27/21] cyclobenzaprine 10 mg tablet 10 mg PO Q8H PRN Muscle spams 02/24/21 [History Last Taken 02/27/21] furosemide 40 mg tablet 40 mg PO DAILY diuretic 02/24/21 [History Last Taken 02/27/21] ondansetron 4 mg disintegrating tablet 4 mg PO Q8H PRN Nausea 02/24/21 [History Last Taken Unknown] carvedilol 25 mg tablet 25 mg PO BID #180 tabs 02/27/21 [Rx Last Taken Unknown] clopidogrel 75 mg tablet 75 mg PO DAILY #30 tabs 03/02/21 [Rx Last Taken 05/12/21 08:58] acetaminophen 500 mg tablet 1,000 mg PO Q6H PRN pain #100 tabs 05/15/21 [Rx Last Taken Unknown] hjtyqzt-vjfvrwjsmqivb-haxsjuiw 250 mg-250 mg-65 mg tablet (Excedrin Migraine) 1 tab PO .COMPLEX 09/15/21 [History Last Taken Unknown] atorvastatin 40 mg tablet 40 mg PO QHS cholesterol 09/15/21 [History Last Taken Unknown] cyclobenzaprine 10 mg tablet 10 mg PO HS 02/05/22 [History Last Taken Unknown] isosorbide mononitrate 30 mg tablet,extended release 24 hr 60 mg PO DAILY #90 tabs 02/05/22 [Rx Last Taken Unknown] bxjnyqcpipjq-amezxhqm-kmccyz tablet 1 tab PO DAILY 02/05/22 [History Last Taken Unknown] nitroglycerin 0.4 mg sublingual tablet 0.4 mg sublingual Q5-15M PRN Chest Pain #25 tabs 02/05/22 [Rx Last Taken Unknown] Allergy/AdvReac Type Severity Reaction Status Date / Time No Known Allergies Allergy Verified 02/26/22 18:23 Family History Father CAD (coronary artery disease) Afib Hypertension Mother Hypertension Diabetes CAD (coronary artery disease) Son Hypertension Surgical History History of appendectomy History of cholecystectomy History of coronary artery bypass graft x 2 (~2009) History of hysterectomy History of left heart catheterization (LHC) (~02/27/21) History of open reduction and internal fixation (ORIF) procedure Social History Smoking Status: Light Smoker (<10/day) alcohol intake: current alcohol intake frequency: 3 or more drinks per day Alcohol type: beer substance use type: does not use caffeine: Yes Type: coffee Number of servings: 1 what type of physical activity do you participate in: walking frequency: daily duration: 15-30 minutes/day seatbelt use: always do you feel safe at home: Yes ROS ROS Narrative 10 systems were reviewed with pertinent positives as noted in the HPI above. Physical Exam Const Constitutional Narrative: Somnolent but arousable on BiPAP. HEENT normocephalic and head/scalp atraumatic Eyes PERRL, EOMs intact bilaterally and conjunctivae normal Neck supple General: trachea midline Chest inspection of chest normal Resp Effort and Inspection: tachypneic Auscultation: diminished lung sounds Cardio regular rate and regular rhythm GI normal to inspection, nondistended, normoactive bowel sounds Extremity no clubbing, cyanosis or edema Skin no rashes or lesions noted Neuro moves all extremities and no focal motor deficits Psych Mood & Affect: flat affect Lab / Micro Data Result Diagrams: 03/01/22 03:15 03/01/22 03:15 Labs: Laboratory Results - last 24 hr 02/28/22 09:20: Sodium 139, Potassium 5.2 H, Chloride 110 H, Carbon Dioxide 26.0, Anion Gap 3 L, BUN 9, Creatinine 0.53 L, Estim Creat Clear Calc 81.98, Est GFR (MDRD) Af Amer 149, Est GFR (MDRD) Non-Af 123, BUN/Creatinine Ratio 16.9, Glucose 93, Calcium 9.0 02/28/22 12:45: Sodium 138, Potassium 5.1, Chloride 109 H, Carbon Dioxide 25.0, Anion Gap 4 L, BUN 9, Creatinine 0.57, Estim Creat Clear Calc 76.23, Est GFR (MDRD) Af Amer 137, Est GFR (MDRD) Non-Af 113, BUN/Creatinine Ratio 15.7, Glucose 113 H, Calcium 9.0 02/28/22 19:20: B-Natriuretic Peptide 991.1 H 03/01/22 03:15: WBC 4.7, RBC 4.09 L, Hgb 12.4, Hct 38.2, MCV 93.4, MCH 30.3, MCHC 32.5, RDW Std Deviation 47.0 H, RDW Coeff of Bel 13.7, Plt Count 258, MPV 10.5, Immature Gran % (Auto) 0.200, Neut % (Auto) 66.1, Lymph % (Auto) 29.0, Stokes % (Auto) 4.5, Eos % (Auto) 0.0, Baso % (Auto) 0.2, Absolute Neuts (auto) 3.1, Absolute Lymphs (auto) 1.35, Nucleated RBC % 0 03/01/22 03:15: Sodium 135 L, Potassium 4.7, Chloride 104, Carbon Dioxide 23.0, Anion Gap 8, BUN 7, Creatinine 0.40 L, Estim Creat Clear Calc 108.63, Est GFR (MDRD) Af Amer 207, Est GFR (MDRD) Non-Af 171, BUN/Creatinine Ratio 17.5, Glucose 104, Calcium 8.3 L, Total Bilirubin 0.30, AST 21, ALT 21, Alkaline Phosphatase 94, Total Protein 6.0 L, Albumin 2.2 L, Globulin 3.8, Albumin/Globulin Ratio 0.6 L ABG Data ABG results: ABG 02/28/22 02/28/22 02/28/22 13:36 18:45 19:26 Specimen Type ART ART ART Sample Site R Radial R Radial pH 7.28 L 7.44 7.52 H Bicarbonate Actual 23.8 22.0 20.1 L Total CO2 25 23 21 Base Excess -3 L -2 -3 L O2 Saturation 100 H 76 L 99 O2 % 30 30 ABG pCO2 50.6 H 32.7 L 24.5 L ABG pO2 189 H 39 L* 115 H Luis Test Positive Positive Respiration Rate 12 12 O2 Delivery Device NRB BiPAP BiPAP Tidal Volume 450 POC PEEP 8 8 Crit Call To/Read Back Yes Radiology Impression Chest X-Ray 02/28/22 18:40 IMPRESSION: Bilateral patchy pneumonia. Electronically Signed: Pino Reynoso MD at 18:57 EST , Charges/Coding Visit Charges Inpatient E&M: 09092 Init Hosp L3
--- NOTE | 2022-03-01 07:50 | PN.HOSP_ITS ---
Subjective Subjective Follow-up for acute hypoxic respiratory failure, acute alcoholic pancreatitis and influenza A Objective Data Objective Data Vital Signs: Vital Signs Temp Pulse Resp BP Pulse Ox O2 Del Method O2 Flow Rate 98.6 F 68 24 H 141/66 H 94 Bi-pap 10 03/01/22 07:00 03/01/22 07:06 03/01/22 07:06 03/01/22 07:00 03/01/22 07:06 03/01/22 07:00 02/28/22 13:11 FiO2 30 03/01/22 07:06 Oxygen Flow Rate (L/min) 10 Oxygen Delivery Method Bi-pap Weight: 152 lb 14.4 oz Body Mass Index (BMI) 29.0 Intake & Output: Intake and Output for Last 24 Hours 02/27/22 02/28/22 03/01/22 23:59 23:59 23:59 Intake Total 4629 / 4979 3925 / 3925 50 / 50 Output Total 75 / 75 1100 / 1100 Balance 4629 / 4979 3850 / 3850 -1050 / -1050 Lab / Micro Data Result Diagrams: 03/01/22 03:15 03/01/22 03:15 Labs: Laboratory Results - last 24 hr 02/28/22 09:20: Sodium 139, Potassium 5.2 H, Chloride 110 H, Carbon Dioxide 26.0, Anion Gap 3 L, BUN 9, Creatinine 0.53 L, Estim Creat Clear Calc 81.98, Est GFR (MDRD) Af Amer 149, Est GFR (MDRD) Non-Af 123, BUN/Creatinine Ratio 16.9, Glucose 93, Calcium 9.0 02/28/22 12:45: Sodium 138, Potassium 5.1, Chloride 109 H, Carbon Dioxide 25.0, Anion Gap 4 L, BUN 9, Creatinine 0.57, Estim Creat Clear Calc 76.23, Est GFR (MDRD) Af Amer 137, Est GFR (MDRD) Non-Af 113, BUN/Creatinine Ratio 15.7, Glucose 113 H, Calcium 9.0 02/28/22 19:20: B-Natriuretic Peptide 991.1 H 03/01/22 03:15: WBC 4.7, RBC 4.09 L, Hgb 12.4, Hct 38.2, MCV 93.4, MCH 30.3, MCHC 32.5, RDW Std Deviation 47.0 H, RDW Coeff of Bel 13.7, Plt Count 258, MPV 10.5, Immature Gran % (Auto) 0.200, Neut % (Auto) 66.1, Lymph % (Auto) 29.0, Giles % (Auto) 4.5, Eos % (Auto) 0.0, Baso % (Auto) 0.2, Absolute Neuts (auto) 3.1, Absolute Lymphs (auto) 1.35, Nucleated RBC % 0 03/01/22 03:15: Sodium 135 L, Potassium 4.7, Chloride 104, Carbon Dioxide 23.0, Anion Gap 8, BUN 7, Creatinine 0.40 L, Estim Creat Clear Calc 108.63, Est GFR (MDRD) Af Amer 207, Est GFR (MDRD) Non-Af 171, BUN/Creatinine Ratio 17.5, Glucose 104, Calcium 8.3 L, Total Bilirubin 0.30, AST 21, ALT 21, Alkaline Phosphatase 94, Total Protein 6.0 L, Albumin 2.2 L, Globulin 3.8, Albumin/Globulin Ratio 0.6 L ABG Data ABG results: ABG 02/28/22 02/28/22 02/28/22 13:36 18:45 19:26 Specimen Type ART ART ART Sample Site R Radial R Radial pH 7.28 L 7.44 7.52 H Bicarbonate Actual 23.8 22.0 20.1 L Total CO2 25 23 21 Base Excess -3 L -2 -3 L O2 Saturation 100 H 76 L 99 O2 % 30 30 ABG pCO2 50.6 H 32.7 L 24.5 L ABG pO2 189 H 39 L* 115 H Luis Test Positive Positive Respiration Rate 12 12 O2 Delivery Device NRB BiPAP BiPAP Tidal Volume 450 POC PEEP 8 8 Crit Call To/Read Back Yes Radiography Diagnostic Testing: Radiology Impression Chest X-Ray 02/28/22 18:40 IMPRESSION: Bilateral patchy pneumonia. Electronically Signed: Pino Reynoso MD at 18:57 EST , Physical Exam Narrative Seen and examined. At times she gets confused and anxious. Initially she came with a lower chest discomfort, lipase was elevated 6339. She has history of chronic alcohol use, 8 [place] Light's daily. She also smokes half pack a day since early teenage. She has chronic cough symptoms and neck and occasionally brings up phlegm . She denies acute change in cough, sputum production but yesterday she got very short of breath. ABG was done PCO2 50 put on BiPAP and was transferred to ICU. She also had Lasix. Physical exam General: Awake, Oriented x3, Cooperative, intermittently gets confused. HEENT: Atraumatic, PERRLA, EOMI, Normocephalic Oral: Oral mucosa dry no Gingival or Mucosal Lesions/ Ulcerations Neck: Supple, No JVD, Negative Carotid Bruits Lungs: Air entry diminished in bilateral lungs. Bilateral expiratory rhonchi and wheezing Cardiovascular: threat monitoring analyst shows PVC. Regular rate, Regular Rhythm, Normal S1, Normal S2, No murmurs Abdomen: Bowel Sounds Present, Soft, Non Tender, Non-Distended. No palpable mass : Tripathi catheter clear urine. Denies LUTS before admission. No renal angle tenderness. No suprapubic tenderness. Extremities: No edema, Capillary Refill Less than 3 Seconds Skin: No rashes, No breakdown Musculoskeletal: No Tenderness to Palpation of Joints or Extremities Neurological: Cranial nerves II-XII grossly intact, DTR 2+/4, Neuro grossly intact Psych/Mental Status: Flat affect. Assessment & Plan Assessment/Plan (1) Acute pancreatitis: PLAN: Acute alcoholic pancreatitis: Drinks several bottles of [place] daily. Lipase level: 6339 CTA chest with pancreatic inflammation. Plan: * Continue IVF, pain control antiemetics 03/01: Abdominal pain has resolved. Nontender abdominal exam. Hematocrit was elevated at time of admission but now normal. Platelet count normal. Start clear liquid. (2) Hypokalemia: PLAN: Hypokalemia and hypokalemia resolved (3) Alcoholism: PLAN: Alcoholism Placed on CIWA protocol. As needed Ativan IV ordered. Folic acid and multivitamins ordered Has received as needed lorazepam. (4) Influenza A: PLAN: Acute hypoxic respiratory failure with respiratory distress, most likely due to influenza A bilateral pneumonia: ABG shows PCO2 50 and patient was on BiPAP at night. Lasix 40 mg IV given. BNP elevated Started Tamiflu. Patient empirically on IV vancomycin and Zosyn. On IV Solu-Medrol. Blood culture, sputum culture urinary antigens ordered Microbiology Past 72 Hours 03/01/22 08:55 Urine Catheter - Tripathi Legionella Antigen - Final 03/01/22 08:55 Urine Catheter - Tripathi Streptococcus pneumoniae Antigen (M - Final Laboratory Results 02/28/22 12:45: Sodium 138, Potassium 5.1, Chloride 109 H, Carbon Dioxide 25.0, Anion Gap 4 L, BUN 9, Creatinine 0.57, Estim Creat Clear Calc 76.23, Est GFR (MDRD) Af Amer 137, Est GFR (MDRD) Non-Af 113, BUN/Creatinine Ratio 15.7, Glucose 113 H, Calcium 9.0 02/28/22 13:36: Specimen Type ART, pH 7.28 L, Bicarbonate Actual 23.8, Total CO2 25, Base Excess -3 L, O2 Saturation 100 H, ABG pCO2 50.6 H, ABG pO2 189 H, O2 Delivery Device NRB 02/28/22 18:45: Specimen Type ART, Sample Site R Radial, pH 7.44, Bicarbonate Actual 22.0, Total CO2 23, Base Excess -2, O2 Saturation 76 L, O2 % 30, ABG pCO2 32.7 L, ABG pO2 39 L*, Luis Test Positive, Respiration Rate 12, O2 Delivery Device BiPAP, POC PEEP 8, Crit Call To/Read Back Yes 02/28/22 19:20: B-Natriuretic Peptide 991.1 H 02/28/22 19:26: Specimen Type ART, Sample Site R Radial, pH 7.52 H, Bicarbonate Actual 20.1 L, Total CO2 21, Base Excess -3 L, O2 Saturation 99, O2 % 30, ABG pCO2 24.5 L, ABG pO2 115 H, Luis Test Positive, Respiration Rate 12, O2 Delivery Device BiPAP, Tidal Volume 450, POC PEEP 8 03/01/22 03:15: WBC 4.7, RBC 4.09 L, Hgb 12.4, Hct 38.2, MCV 93.4, MCH 30.3, MCHC 32.5, RDW Std Deviation 47.0 H, RDW Coeff of Bel 13.7, Plt Count 258, MPV 10.5, Immature Gran % (Auto) 0.200, Neut % (Auto) 66.1, Lymph % (Auto) 29.0, Giles % (Auto) 4.5, Eos % (Auto) 0.0, Baso % (Auto) 0.2, Absolute Neuts (auto) 3.1, Absolute Lymphs (auto) 1.35, Nucleated RBC % 0 03/01/22 03:15: Sodium 135 L, Potassium 4.7, Chloride 104, Carbon Dioxide 23.0, Anion Gap 8, BUN 7, Creatinine 0.40 L, Estim Creat Clear Calc 108.63, Est GFR (MDRD) Af Amer 207, Est GFR (MDRD) Non-Af 171, BUN/Creatinine Ratio 17.5, Glucose 104, Calcium 8.3 L, Total Bilirubin 0.30, AST 21, ALT 21, Alkaline Phosphatase 94, Total Protein 6.0 L, Albumin 2.2 L, Globulin 3.8, Albumin/Globulin Ratio 0.6 L 03/01/22 03:15: Lipase 287 Clinical Impression(s) from Imaging Studies Chest X-Ray 02/26/22 19:52 IMPRESSION: Poor inspiration with some bibasilar atelectasis. Chest CTA 02/26/22 20:01 IMPRESSION: 1. No CT evidence of pulmonary embolism. 2. Mild bilateral subsegmental atelectasis or pneumonitis. Commonly reported imaging features of Covid 19 pneumonia are present. 3. Suspect acute pancreatitis. Chest X-Ray 02/28/22 18:40 IMPRESSION: Bilateral patchy pneumonia. PLAN: Plan History of CAD: Presented with chest pain. Troponin x2 negative. Chest pain likely from pancreatitis. Home regimen continued DVT prophylaxis: SCDs ordered Charges/Coding Visit Charges Inpatient E&M: 91455 Subs Hosp L3
[2022-03-01] MEDS: Vancomycin IV 1,000 MG/200 ML BAG 200 MG IV ×2 (08:17→19:52)
[2022-03-01] MEDS: Oseltamivir Phosphate 75 MG Capsule PO ×2 (08:24→21:06)
[2022-03-01] MEDS: Carvedilol 25 MG Tablet PO ×2 (08:24→17:57)
[2022-03-01] MEDS: Folic Acid 1 MG Tablet PO (08:24)
[2022-03-01] MEDS: Thiamine Hydrochloride 100 MG Tablet PO (08:24)
[2022-03-01] MEDS: Isosorbide Mononitrate 60 MG Tablet PO (08:24)
[2022-03-01] MEDS: Clopidogrel Bisulfate 75 MG Tablet PO (08:24)
[2022-03-01] MEDS: Loperamide 2 MG Capsule PO ×2 (08:43→13:37)
[2022-03-01 08:46] LABS: Lipase 287 U/L (73-393)
[2022-03-01] MEDS: Furosemide 40 MG Tablet PO (11:38)
[2022-03-01] MEDS: Dicyclomine 10 MG Capsule 20 MG PO (13:37)
[2022-03-01] MEDS: Acetaminophen 500 MG Tablet 1000 MG PO (13:46)
[2022-03-01] MEDS: cycloBENZAPRine HCl 10 MG Tablet PO (21:06)
[2022-03-02] VITALS (23 sets, daily range): BP systolic 128–147; BP diastolic 67–83; PULSE 56–74; RESP 12–24; TEMP 36.8–37.1; O2SAT 92–100
[2022-03-02] MEDS: Albuterol 2.5 MG/3 ML VIAL.NEB. INHALATION ×5 (02:20→19:25)
[2022-03-02] MEDS: Phenobarbital 32.4 MG Tablet 64.8 MG PO ×6 (02:35→20:32)
[2022-03-02] MEDS: Levothyroxine 25 MCG TABLET PO (05:52)
--- NOTE | 2022-03-02 07:29 | PCM.PN.INT ---
Assessment & Plan Assessment/Plan (1) Influenza A: PLAN: Plan RECOMMENDATIONS: 1. Wean supplemental oxygen to maintain saturations at or above 90%. 2. Continue home diuretic regimen. 3. Continue medical management of alcohol withdrawal syndrome. 4. Continue scheduled bronchodilators and steroids. 5. Encourage incentive spirometer use and mobilize patient as tolerated. 6. Given the patient's lack of further ICU needs, will sign off. Please call with any additional questions. IMPRESSIONS: 1. Acute respiratory failure with hypoxemia and hypercapnia Resolved. The patient may have pre-existing lung disease, in light of her smoking history, complicated by her current influenza A infection. In addition, she had been managed with supplemental IV fluids in light of her presenting pancreatitis and was volume positive for the hospitalization. She has a known depressed ejection fraction and an elevated BNP, making decompensated heart failure a potential etiology for her respiratory failure. The patient did respond to IV diuretics and BiPAP therapy. Her oxygenation status has improved. She has been restarted on her home diuretic regimen. Plan to continue supplemental oxygen to maintain saturations at or above 90%. The patient will be continued on Tamiflu on account of her underlying influenza A. Plan to continue scheduled bronchodilators and IV steroids as well. Encourage incentive spirometer use and mobilize patient as tolerated. 2. Alcoholic pancreatitis Improved. Lipase is now within normal limits following IV fluid resuscitation. Okay to liberalize diet from my perspective. 3. Acute alcohol withdrawal Continue current medical management including phenobarbital taper, thiamine folic acid repletion. This note was generated with [employer] dictation software. It may contain incorrect words, spelling, and punctuation that were not noted in checking the note before signing. Subjective Subjective The patient was seen and examined at the bedside this morning. Events from the last 24 hours have been reviewed. The patient is currently afebrile, hemodynamically stable and maintaining appropriate oxygen saturations on 2 L/min via nasal cannula. The patient is currently documented to be overall net +5.9 L for the hospitalization. Objective Data Objective Data The patient's most recent lab work, culture data and imaging studies have all been personally reviewed. Rapid influenza screen was positive on February 25. Vital Signs: Vital Signs Temp Pulse Resp BP Pulse Ox O2 Del Method O2 Flow Rate 98.3 F 69 17 137/83 H 94 Bi-pap 2 03/02/22 06:00 03/02/22 06:00 03/02/22 06:00 03/02/22 06:00 03/02/22 06:00 03/02/22 06:00 03/01/22 22:00 FiO2 30 03/02/22 06:00 Oxygen Flow Rate (L/min) 2 Oxygen Delivery Method Bi-pap Weight: 156 lb 8.451 oz Body Mass Index (BMI) 29.0 Intake & Output: Intake and Output for Last 24 Hours 02/28/22 03/01/22 03/02/22 23:59 23:59 23:59 Intake Total 3925 / 3925 1040 / 1040 50 / 50 Output Total 75 / 75 3250 / 3675 675 / 675 Balance 3850 / 3850 -2210 / -2635 -625 / -625 Medical Nutrition Assessment Dietitian: Malnutrition Criteria Met Start: 03/01/22 10:03 Freq: Status: Active Protocol: Document 03/01/22 10:03 ROSSANA (Rec: 03/01/22 10:03 [facility] [id number]) Nutrition Malnutrition Evidence of Malnutrition Exists Yes Malnutrition (severe): Acute Illness/Injury Evidenced By Suboptimal Energy Intake ( Severe),Weight Loss (Severe) Intake Problem Inadequate Oral Intake Status Inactive Problem Clinical Problem Acute Disease or Injury Related Malnutrition Etiology related to acute illness Signs/Symptoms as evidenced by estimated PO intake meeting <50% of estimated energy needs x ~5 days and 3.2% wt loss since adm. Status Active Problem Recommendation Dietitian Recommendations/Changes recommend advance diet as tolerated to cardiac will provided 240 ml ensure clear w/ meals for increased nutrition if consumed. Lab / Micro Data Attestation: I reviewed the patient's lab results. Result Diagrams: 03/01/22 03:15 03/01/22 03:15 Labs: Laboratory Results - last 24 hr 03/01/22 03:15: Lipase 287 Micro: Microbiology 03/01/22 10:50 Stool C. difficile DNA Amplification - Final 03/01/22 08:55 Urine Catheter - Tripathi Legionella Antigen - Final 03/01/22 08:55 Urine Catheter - Tripathi Streptococcus pneumoniae Antigen (M - Final Physical Exam Const alert and no apparent distress General Appearance: cooperative HEENT normocephalic, head/scalp atraumatic and moist oral mucous membranes Eyes PERRL, EOMs intact bilaterally and conjunctivae normal Neck supple General: trachea midline Chest inspection of chest normal Resp Auscultation: diminished lung sounds; Negative for rales, rhonchi or wheezes Cardio regular rate and regular rhythm GI normal to inspection, nondistended, normoactive bowel sounds Extremity no clubbing, cyanosis or edema Skin no rashes or lesions noted Neuro moves all extremities and no focal motor deficits Psych cooperative Charges/Coding Visit Charges Inpatient E&M: 60139 Subs Hosp L2
[2022-03-02 07:50] LABS: Vancomycin, Trough Level 20.4 ug/mL (5.0-15.0)
--- NOTE | 2022-03-02 08:03 | PCM.PN.HOSP ---
Subjective Subjective Follow-up for acute hypoxic and hypercarbic respiratory failure. Bilateral lower lobe pneumonia. Patient tolerated BiPAP well. Oxygenation status is better. Downgraded to PCU. Objective Data Objective Data Vital Signs: Vital Signs Temp Pulse Resp BP Pulse Ox O2 Del Method O2 Flow Rate 98.3 F 62 17 137/83 H 94 Bi-pap 2 03/02/22 06:00 03/02/22 06:59 03/02/22 06:00 03/02/22 06:00 03/02/22 06:00 03/02/22 06:00 03/01/22 22:00 FiO2 30 03/02/22 06:00 Oxygen Flow Rate (L/min) 2 Oxygen Delivery Method Bi-pap Weight: 156 lb 8.451 oz Body Mass Index (BMI) 29.0 Intake & Output: Intake and Output for Last 24 Hours 02/28/22 03/01/22 03/02/22 23:59 23:59 23:59 Intake Total 3925 / 3925 1040 / 1040 50 / 50 Output Total 75 / 75 3250 / 3675 675 / 675 Balance 3850 / 3850 -2210 / -2635 -625 / -625 Medical Nutrition Assessment Dietitian: Malnutrition Criteria Met Start: 03/01/22 10:03 Freq: Status: Active Protocol: Document 03/01/22 10:03 ROSSANA (Rec: 03/01/22 10:03 ROSSANA [id number]) Nutrition Malnutrition Evidence of Malnutrition Exists Yes Malnutrition (severe): Acute Illness/Injury Evidenced By Suboptimal Energy Intake ( Severe),Weight Loss (Severe) Intake Problem Inadequate Oral Intake Status Inactive Problem Clinical Problem Acute Disease or Injury Related Malnutrition Etiology related to acute illness Signs/Symptoms as evidenced by estimated PO intake meeting <50% of estimated energy needs x ~5 days and 3.2% wt loss since adm. Status Active Problem Recommendation Dietitian Recommendations/Changes recommend advance diet as tolerated to cardiac will provided 240 ml ensure clear w/ meals for increased nutrition if consumed. Lab / Micro Data Result Diagrams: 03/01/22 03:15 03/01/22 03:15 Labs: Laboratory Results - last 24 hr 03/01/22 03:15: Lipase 287 03/02/22 07:00: Vancomycin Trough 20.4 H Micro: Microbiology 03/01/22 10:50 Stool C. difficile DNA Amplification - Final 03/01/22 08:55 Urine Catheter - Tripathi Legionella Antigen - Final 03/01/22 08:55 Urine Catheter - Tripathi Streptococcus pneumoniae Antigen (M - Final Physical Exam Narrative Seen and examined. Physical exam General: Awake, Oriented x3, Cooperative, intermittently gets confused. HEENT: Atraumatic, PERRLA, EOMI, Normocephalic Oral: Oral mucosa dry no Gingival or Mucosal Lesions/ Ulcerations Neck: Supple, No JVD, Negative Carotid Bruits Lungs: Air entry diminished in bilateral lungs. Bilateral expiratory rhonchi and wheezing Cardiovascular: playground monitor shows PVC. Regular rate, Regular Rhythm, Normal S1, Normal S2, No murmurs Abdomen: Bowel Sounds Present, Soft, Non Tender, Non-Distended. No palpable mass : Tripathi catheter clear urine. Denies LUTS before admission. No renal angle tenderness. No suprapubic tenderness. Extremities: No edema, Capillary Refill Less than 3 Seconds Skin: No rashes, No breakdown Musculoskeletal: No Tenderness to Palpation of Joints or Extremities Neurological: Cranial nerves II-XII grossly intact, DTR 2+/4, Neuro grossly intact Psych/Mental Status: Flat affect. Assessment & Plan Assessment/Plan (1) Acute pancreatitis: PLAN: 62-year-old female initially admitted with she came with a lower chest discomfort, lipase was elevated 6339. She has history of chronic alcohol use, 8 [place] [employer] daily. Lipase level: 6339 CTA chest with pancreatic inflammation. Plan: Continue IVF, pain control antiemetics 03/01: Abdominal pain has resolved. Nontender abdominal exam. Hematocrit was elevated at time of admission but now normal. Platelet count normal. Start clear liquid. (2) Hypokalemia: PLAN: Hypokalemia and hypokalemia resolved (3) Alcoholism: PLAN: Alcoholism Placed on CIWA protocol. As needed Ativan IV ordered. Folic acid and multivitamins ordered Has received as needed lorazepam. (4) Influenza A: PLAN: Acute hypoxic respiratory failure with respiratory distress, most likely due to influenza A bilateral pneumonia: ABG shows PCO2 50 and patient was on BiPAP at night. Lasix 40 mg IV given. BNP elevated Started Tamiflu. Patient empirically on IV vancomycin and Zosyn. On IV Solu-Medrol. Blood culture, sputum culture urinary antigens ordered 03/01: Bilateral lower lobe pneumonia with suspicion of bacterial secondary infection staph because of influenza A pneumonia she also smokes half pack a day since early teenage. She has chronic cough symptoms and neck and occasionally brings up phlegm and denied acute change in cough, sputum production but but got very short of breath on past Tuesday and therefore transferred to ICU. ABG was done PCO2 50, put on BiPAP. She also had Lasix. 03/02: Patient shortness of breath and breathing is much improved. Transition to nasal cannula in the morning. Downgraded to PCU. Clinical Impression(s) from Imaging Studies Chest X-Ray 02/26/22 19:52 IMPRESSION: Poor inspiration with some bibasilar atelectasis. Chest CTA 02/26/22 20:01 IMPRESSION: 1. No CT evidence of pulmonary embolism. 2. Mild bilateral subsegmental atelectasis or pneumonitis. Commonly reported imaging features of Covid 19 pneumonia are present. 3. Suspect acute pancreatitis. Chest X-Ray 02/28/22 18:40 IMPRESSION: Bilateral patchy pneumonia. PLAN: Plan History of CAD: Presented with chest pain. Troponin x2 negative. Chest pain likely from pancreatitis. Home regimen continued DVT prophylaxis: SCDs ordered Charges/Coding Visit Charges Inpatient E&M: 28714 Subs Hosp L3
[2022-03-02] MEDS: Oseltamivir Phosphate 75 MG Capsule PO ×2 (08:29→20:32)
[2022-03-02] MEDS: Clopidogrel Bisulfate 75 MG Tablet PO (08:29)
[2022-03-02] MEDS: Thiamine Hydrochloride 100 MG Tablet PO (08:29)
[2022-03-02] MEDS: Carvedilol 25 MG Tablet PO ×2 (08:29→15:45)
[2022-03-02] MEDS: Folic Acid 1 MG Tablet PO (08:29)
[2022-03-02] MEDS: Furosemide 40 MG Tablet PO (08:29)
[2022-03-02] MEDS: Isosorbide Mononitrate 60 MG Tablet PO (08:29)
--- NOTE | 2022-03-02 08:42 | PCM.RX.CS ---
Consult Pharmacy has been consulted to manage selected antiobiotic: Vancomycin Type of Consult: Follow-up Prior Doses of Antibiotics Received/Current Regimen: current dose is vanc 1000mg IV q12h Labs: Sodium 135 mmol/L (136-145) L 03/01/22 03:15 Potassium 4.7 mmol/L (3.5-5.1) 03/01/22 03:15 Chloride 104 mmol/L (98-107) 03/01/22 03:15 Carbon Dioxide 23.0 mmol/L (21.0-32.0) 03/01/22 03:15 Anion Gap 8 (5-15) 03/01/22 03:15 BUN 7 mg/dL (7-18) 03/01/22 03:15 Creatinine 0.40 mg/dL (0.55-1.02) L 03/01/22 03:15 Est GFR (MDRD) Af Amer 207 mL/min (>60) 03/01/22 03:15 Est GFR (MDRD) Non-Af 171 mL/min (>60) 03/01/22 03:15 BUN/Creatinine Ratio 17.5 RATIO (10-20) 03/01/22 03:15 Glucose 104 mg/dL (74-106) 03/01/22 03:15 Vancomycin Trough 20.4 ug/mL (5.0-15.0) H 03/02/22 07:00 Microbiology: Microbiology 03/01/22 10:50 Stool C. difficile DNA Amplification - Final 03/01/22 08:55 Urine Catheter - Tripathi Legionella Antigen - Final 03/01/22 08:55 Urine Catheter - Tripathi Streptococcus pneumoniae Antigen (M - Final Weight used for dosin kg Estimated Creatinine Clearance: >100ml/min Goal Trough: 15-20 mcg/mL Pharmacy Plan for Drug Dosing: The vanc trough drawn at 07:00 today (approx 11 hours after the previous dose) was 20.4. It is slightly high but also was drawn a little early. Nevertheless, will hold the current dose and wait another 6 hours to allow the level to drop into goal range and then start a newly calculated dose of 750mg IV q12h. Repeat a trough before the 4th new dose. The CrCl of >100ml/min was based on the SCr of 0.40 from yesterday. Pharmacy Service will continue to monitor and adjust dosing as required. Follow-Up Labs: Trough Vancomycin Labs to be done on [date and time ordered]: 03/04/22 01:30
[2022-03-02] MEDS: Ketorolac 15 MG/ML Vial IV ×2 (14:36→20:47)
[2022-03-02] MEDS: cycloBENZAPRine HCl 10 MG Tablet PO (20:32)
[2022-03-02] MEDS: guaiFENesin/D-Methorphan TAB.SR.12H 1 TABLET PO (20:47)
[2022-03-03] VITALS (14 sets, daily range): BP systolic 139–157; BP diastolic 65–77; PULSE 58–77; RESP 15–20; TEMP 36.4–36.7; O2SAT 91–96
[2022-03-03] MEDS: Albuterol 2.5 MG/3 ML VIAL.NEB. INHALATION ×4 (00:37→11:00)
[2022-03-03] MEDS: Phenobarbital 32.4 MG Tablet 64.8 MG PO ×2 (02:14→09:29)
[2022-03-03] MEDS: Levothyroxine 25 MCG TABLET PO (05:54)
--- NOTE | 2022-03-03 08:01 | PCM.DC ---
Discharge Instructions Diet Discharge Diet: Soft diet (FOR 5 DAYS) Activity Discharge Activity: May Not Drive Weight Bearing Status: Weight bearing as tolerated Dressing / Incision Call your doctor if you observe: Fever of 101 or Higher, Coldness, Increased Pain, Numbness or Tingling, Change in Color, Inability to urinate, Inability to have a bowel movement, Using more than 1 pad per hour, Shortness of breath, Dizziness, Fainting spells, Swelling in the ankles, Chest pain, Prolonged hiccupping, Increased palpitations (irregular heartbeat), Calf discomfort and Uncontrolled pain Follow Up Care Test Results: Test results from this visit will be discussed in further detail at your follow-up appointment, if applicable. Discharge Plan Admission Admit Date/Time: 02/26/22 22:54 Primary Reason for Your Visit: ACUTE Combined resp failure, influenza A, acute pancreatitis Attending Provider: Fabio Stoddard Primary Care Provider: Adeel Norman Chi Consulting Providers: [place] ; Damien Mckinnon ; Dakota Pichardo ; Ivan Rodríguez ; Lino Valentino ; Terrell Brandon ; Berkley Hurst ELECTRICAL MAINTENANCE TECHNICIAN Instructions Additional Instructions / Restrictions: Hold Excedrin Migraine while taking Mucinex DM which is mainly for 5 days Follow-up outpatient alcohol rehab as set up by 180 Discharge Orders/Prescriptions Prescriptions: New thiamine HCl (vitamin B1) [Vitamin B-1] 100 mg Tablet 100 mg PO BREAKFAST Qty: 30 2RF oseltamivir 75 mg Capsule 75 mg PO BID Qty: 2 0RF folic acid 1 mg Tablet 1 mg PO BREAKFAST Qty: 30 2RF doxycycline hyclate 100 mg tablet 100 mg PO BID Qty: 10 0RF amoxicillin-pot clavulanate 875-125 mg tablet 1 tab PO BID Qty: 10 0RF prednisone 20 mg tablet 40 mg PO DAILY 5 Days Qty: 10 0RF pseudoephedrine-guaifenesin [Mucinex D] 60-600 mg tablet extended release 12 hr 2 tab PO BID 5 Days Qty: 20 0RF Continued omeprazole 40 MG capsule,delayed release(DR/EC) 40 mg PO DAILY Qty: 90 3RF venlafaxine [Effexor XR] 75 mg capsule,extended release 24hr 75 mg PO DAILY furosemide 40 mg tablet 40 mg PO DAILY levothyroxine 25 mcg tablet 25 mcg PO DAILY ondansetron 4 mg tablet,disintegrating 4 mg PO Q8H PRN (Reason: Nausea) cyclobenzaprine 10 mg tablet 10 mg PO Q8H PRN (Reason: Muscle spams) atorvastatin 40 mg tablet 40 mg PO QHS acetaminophen 500 mg tablet 1,000 mg PO Q6H PRN (Reason: pain) Qty: 100 1RF Rx Instructions: Do not exceed 4000 mg of Tylenol per day. Excedrin contains Tylenol. Excedrin Migraine 250-250-65 mg tablet 1 tab PO .COMPLEX Rx Instructions: 1 TAB orally pt takes 8-12 a day; cyclobenzaprine 10 mg tablet 10 mg PO HS [id number] Tablet 1 tab PO DAILY nitroglycerin 0.4 mg tablet, sublingual 0.4 mg SUBLINGUAL Q5-15M PRN (Reason: Chest Pain) Qty: 25 3RF Rx Instructions: as a single dose; administer 5-10 minutes before situation known to precipitate angina attack isosorbide mononitrate 30 mg tablet extended release 24 hr 60 mg PO DAILY Qty: 90 3RF carvedilol 25 mg tablet 25 mg PO BID Qty: 180 4RF Rx Instructions: must administer with a meal/food clopidogrel 75 mg tablet 75 mg PO DAILY Qty: 30 11RF Referrals / Follow Up: Ivan Rodríguez DO [Med Staff - Active Staff] - Within 2 Weeks (For PFT. Might have undiagnosed COPD) Андрей Sultana DO [Med Staff - Active Staff] - Within 1 Month (For alcohol induced pancreatitis) Adeel Norman Chi, MD [Primary Care Provider] - Disposition Disposition (needs filled in before D/C Order can be placed): Home, Self Care
--- NOTE | 2022-03-03 08:22 | DS.PCM_ITS ---
Providers Date of Admission: 02/26/22 Date of Discharge: 03/03/22 Primary Care Physician: Dr. Adeel Norman MD Consultations 02/28/22 18:16 Consult: Boiler Riveter / Pulmonary Medicine Routine Consulting Provider: Pulmonary Medicine anabela Kwon Reason for Consult: respiratory failure EMERGENT Consult: No MD Notified: Yes Date Notified: 02/28/22 Time Notified: 13:53 Method of Notification: Text Reason For Visit: ACUTE PANCREATITIS Diagnosis Discharge Diagnosis (1) Acute pancreatitis: Status: Acute Code(s): K85.90 - Acute pancreatitis without necrosis or infection, unspecified Plan: 62-year-old female initially admitted with she came with a lower chest discomfort, lipase was elevated 6339. She has history of chronic alcohol use, 8 [place] [employer] daily. Lipase level: 6339 CTA chest with pancreatic inflammation. Plan: * Continue IVF, pain control antiemetics 03/01: Abdominal pain has resolved. Nontender abdominal exam. Hematocrit was elevated at time of admission but now normal. Platelet count normal. Start clear liquid. (2) Hypokalemia: Status: Acute Code(s): E87.6 - Hypokalemia Plan: Hypokalemia and hypokalemia resolved (3) Alcoholism: Status: Acute Code(s): F10.20 - Alcohol dependence, uncomplicated Plan: Alcoholism Placed on CIWA protocol. As needed Ativan IV ordered. Folic acid and multivitamins ordered Has received as needed lorazepam. (4) Influenza A: Status: Acute Code(s): J10.1 - Influenza due to other identified influenza virus with other respiratory manifestations Plan: Acute hypoxic respiratory failure with respiratory distress, most likely due to influenza A bilateral pneumonia: ABG shows PCO2 50 and patient was on BiPAP at night. Lasix 40 mg IV given. BNP elevated Started Tamiflu. Patient empirically on IV vancomycin and Zosyn. On IV Solu-Medrol. Blood culture, sputum culture urinary antigens ordered 03/01: Bilateral lower lobe pneumonia with suspicion of bacterial secondary infection staph because of influenza A pneumonia she also smokes half pack a day since early teenage. She has chronic cough symptoms and neck and oc casionally brings up phlegm and denied acute change in cough, sputum production but but got very short of breath on past Tuesday and therefore transferred to ICU. ABG was done PCO2 50, put on BiPAP. She also had Lasix. 03/02: Patient shortness of breath and breathing is much improved. Transition to nasal cannula in the morning. Downgraded to PCU. Clinical Impression(s) from Imaging Studies Chest X-Ray 02/26/22 19:52 IMPRESSION: Poor inspiration with some bibasilar atelectasis. Chest CTA 02/26/22 20:01 IMPRESSION: 1. No CT evidence of pulmonary embolism. 2. Mild bilateral subsegmental atelectasis or pneumonitis. Commonly reported imaging features of Covid 19 pneumonia are present. 3. Suspect acute pancreatitis. Chest X-Ray 02/28/22 18:40 IMPRESSION: Bilateral patchy pneumonia. Plan History of CAD: Presented with chest pain. Troponin x2 negative. Chest pain likely from pancreatitis. Home regimen continued [facility] Medications at Discharge Home Medications omeprazole 40 mg capsule,delayed release 40 mg PO DAILY #90 caps 04/14/17 venlafaxine 75 mg capsule,extended release 24 hr (Effexor XR) 75 mg PO DAILY mental health 02/23/18 levothyroxine 25 mcg tablet 25 mcg PO DAILY thyroid 07/19/19 cyclobenzaprine 10 mg tablet 10 mg PO Q8H PRN Muscle spams 02/24/21 furosemide 40 mg tablet 40 mg PO DAILY diuretic 02/24/21 ondansetron 4 mg disintegrating tablet 4 mg PO Q8H PRN Nausea 02/24/21 carvedilol 25 mg tablet 25 mg PO BID #180 tabs 02/27/21 clopidogrel 75 mg tablet 75 mg PO DAILY #30 tabs 03/02/21 acetaminophen 500 mg tablet 1,000 mg PO Q6H PRN pain #100 tabs 05/15/21 pwjdtjn-lmbccewosqbro-dwaqurbc 250 mg-250 mg-65 mg tablet (Excedrin Migraine) 1 tab PO .COMPLEX 09/15/21 atorvastatin 40 mg tablet 40 mg PO QHS cholesterol 09/15/21 cyclobenzaprine 10 mg tablet 10 mg PO HS 02/05/22 isosorbide mononitrate 30 mg tablet,extended release 24 hr 60 mg PO DAILY #90 tabs 02/05/22 hpnlzrpojflh-kitujkdd-pgjbcw tablet 1 tab PO DAILY 02/05/22 nitroglycerin 0.4 mg sublingual tablet 0.4 mg sublingual Q5-15M PRN Chest Pain #25 tabs 02/05/22 amoxicillin 875 mg-potassium clavulanate 125 mg tablet 1 tab PO BID #10 tabs 03/03/22 doxycycline hyclate 100 mg tablet 100 mg PO BID #10 tabs 03/03/22 folic acid 1 mg tablet 1 mg PO BREAKFAST #30 tabs 03/03/22 oseltamivir 75 mg capsule 75 mg PO BID #2 caps 03/03/22 prednisone 20 mg tablet 40 mg PO DAILY 5 days #10 tabs 03/03/22 pseudoephedrine-guaifenesin ER 60 mg-600 mg tablet,extend release 12hr (Mucinex D) 2 tab PO BID cold symptoms 5 days #20 tabs 03/03/22 thiamine HCl (vitamin B1) 100 mg tablet (Vitamin B-1) 100 mg PO BREAKFAST #30 t abs 03/03/22 Hospital Course Summary of Care Provided Hospital Course: 62-year-old female initially admitted with she came with a lower chest discomfort, lipase was elevated 6339.? She has history of chronic alcohol use, 8 [place] [employer] daily.?Lipase level: 6339 CTA chest with pancreatic inflammation. 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 Managed with IV fluid, pain control and antiemetics. Abdominal pain got better and later it resolved. Lipase enzyme improved. Hematocrit level got normal. Things abdominal exam normal and the time of discharge. Patient tolerated clear liquid and diet advanced to soft diet and advised to continue soft diet for 3 days. (2) Hypokalemia: PLAN: Hypokalemia and hypokalemia resolved (3) Alcoholism: Placed on CIWA protocol.? As needed Ativan IV ordered.? Folic acid and multivitamins ordered Has received as needed lorazepam. (4) acute hypoxic respiratory failure with respiratory distress most likely due to influenza A bilateral pneumonia: ABG shows PCO2 50 and patient was on BiPAP at night.? Lasix 40 mg IV given.? BNP elevated Started Tamiflu.? Patient empirically on IV vancomycin and Zosyn. On IV Solu-Medrol.? Blood culture, sputum culture urinary antigens ordered 03/01: Bilateral lower lobe pneumonia with suspicion of bacterial secondary infection staph because of influenza A pneumonia she also smokes half pack a day since early teenage.? She has chronic cough symptoms and neck and occasionally brings up phlegm and denied acute change in cough, sputum production but but got very short of breath on past Tuesday and therefore transferred to ICU. ? ABG was done PCO2 50, put on BiPAP.? She also had Lasix. 03/02: Patient shortness of breath and breathing is much improved.? Transition to nasal cannula in the morning.? Downgraded to PCU. 03/03: Blood culture shows no growth more more than a 48 hours. Stool for C. difficile negative. Urinary antigens negative. Patient discharged on Augmentin. Discharge medication reconciliation done. Discharge follow-up instructions completed. Discharge process discussed with the patient and all questions were answered to patient's satisfaction. Total time spent, exact 35 minutes on discharge meds reconciliation, examination, coordination of care with nurses and ancillary staff, review of imaging and blood test and discussion with the patient on follow-up instructions. Patient is on Lasix. A prescription given for doxycycline, Augmentin, prednisone 40 mg daily for 5 days, Mucinex DM, thiamine and folic acid. Patient was advised to hold Excedrin while taking Mucinex DM because of interaction. Advised to follow-up in pulmonary clinic and Dr. Sultana. Microbiology Past 72 Hours 03/01/22 09:45 Blood Culture (Wb) - Anticubital Left Blood Culture - Preliminary No growth in 48 hours. 03/01/22 09:55 Blood Culture (Wb) - Right Hand Blood Culture - Preliminary No growth in 48 hours. 03/01/22 10:50 Stool C. difficile DNA Amplification - Final 03/01/22 08:55 Urine Catheter - Tripathi Legionella Antigen - Final 03/01/22 08:55 Urine Catheter - Tripathi Streptococcus pneumoniae Antigen (M - Final Physical Exam Narrative Seen and examined. Patient stated she wants to go home. No abdominal pain. No abdominal distention. Physical exam General: Awake, Oriented x3, Cooperative, intermittently gets confused. HEENT: Atraumatic, PERRLA, EOMI, Normocephalic Oral: Oral mucosa dry no Gingival or Mucosal Lesions/ Ulcerations Neck: Supple, No JVD, Negative Carotid Bruits Lungs: Air entry diminished in bilateral lungs. Bilateral expiratory rhonchi and wheezing Cardiovascular: night monitor shows PVC. Regular rate, Regular Rhythm, Normal S1, Normal S2, No murmurs Abdomen: Bowel Sounds Present, Soft, Non Tender, Non-Distended. No palpable mass. Moved bowel : Tripathi catheter clear urine. Denies LUTS before admission. No renal angle tenderness. No suprapubic tenderness. Extremities: No edema, Capillary Refill Less than 3 Seconds Skin: No rashes, No breakdown Musculoskeletal: No Tenderness to Palpation of Joints or Extremities Neurological: Cranial nerves II-XII grossly intact, DTR 2+/4, Neuro grossly intact Psych/Mental Status: Flat affect. Medical Records Data Medical Nutrition Assessment Dietitian: Malnutrition Criteria Met Start: 03/01/22 10:03 Freq: Status: Active Protocol: Document 03/02/22 09:44 (Rec: 03/02/22 09:44 [id number]) Nutrition Malnutrition Evidence of Malnutrition Exists No Malnutrition (severe): Acute Illness/Injury Intake Problem Inadequate Oral Intake Etiology r/t GI dysfunction Signs/Symptoms as evidenced by estimated PO intake meeting ~50% of estimated energy needs x 6 days Status Active Problem Clinical Problem Acute Disease or Injury Related Malnutrition Etiology - Signs/Symptoms - Status Resolved Problem Recommendation Dietitian Recommendations/Changes recommend advance diet as tolerated to cardiac; continue ensure clear w/ meals until adequate PO intake is established. Weight / BMI Weight Weight: 157 lb 6.561 oz Body Mass Index (BMI) 29.0 ABG / Lab / Microbiology Data Result Diagrams: 03/01/22 03:15 03/01/22 03:15 Microbiology: Microbiology 03/01/22 09:45 Blood Culture (Wb) - Anticubital Left Blood Culture - Preliminary No growth in 48 hours. 03/01/22 09:55 Blood Culture (Wb) - Right Hand Blood Culture - Preliminary No growth in 48 hours. 03/01/22 10:50 Stool C. difficile DNA Amplification - Final 03/01/22 08:55 Urine Catheter - Tripathi Legionella Antigen - Final 03/01/22 08:55 Urine Catheter - Tripathi Streptococcus pneumoniae Antigen (M - Final D/C Instructions Discharge Diet: Soft diet (FOR 5 DAYS) Weight Bearing Status: Weight bearing as tolerated Call your doctor if you observe: Fever of 101 or Higher, Coldness, Increased Pain, Numbness or Tingling, Change in Color, Inability to urinate, Inability to have a bowel movement, Using more than 1 pad per hour, Shortness of breath, Dizziness, Fainting spells, Swelling in the ankles, Chest pain, Prolonged hiccupping, Increased palpitations (irregular heartbeat), Calf discomfort and Uncontrolled pain Meaningful Use Info Meaningful Use Diagnoses (Choose all that apply): None applicable Discharge Plan Admission Admit Date/Time: 02/26/22 22:54 Primary Reason for Your Visit: ACUTE Combined resp failure, influenza A, acute pancreatitis Attending Provider: Fabio Stoddard Primary Care Provider: Adeel Norman Chi Consulting Providers: [place] ; Damien Mckinnon ; Dakota Pichardo ; [place] ; Lino Valentino ; Terrell Brandon ; Berkley Hurst [employer] Instructions Additional Instructions / Restrictions: Hold Excedrin Migraine while taking Mucinex DM which is mainly for 5 days Follow-up outpatient alcohol rehab as set up by 180 Discharge Orders/Prescriptions Prescriptions: New thiamine HCl (vitamin B1) [Vitamin B-1] 100 mg Tablet 100 mg PO BREAKFAST Qty: 30 2RF oseltamivir 75 mg Capsule 75 mg PO BID Qty: 2 0RF folic acid 1 mg Tablet 1 mg PO BREAKFAST Qty: 30 2RF doxycycline hyclate 100 mg tablet 100 mg PO BID Qty: 10 0RF amoxicillin-pot clavulanate 875-125 mg tablet 1 tab PO BID Qty: 10 0RF prednisone 20 mg tablet 40 mg PO DAILY 5 Days Qty: 10 0RF pseudoephedrine-guaifenesin [Mucinex D] 60-600 mg tablet extended release 12 hr 2 tab PO BID 5 Days Qty: 20 0RF Continued omeprazole 40 MG capsule,delayed release(DR/EC) 40 mg PO DAILY Qty: 90 3RF venlafaxine [Effexor XR] 75 mg capsule,extended release 24hr 75 mg PO DAILY furosemide 40 mg tablet 40 mg PO DAILY levothyroxine 25 mcg tablet 25 mcg PO DAILY ondansetron 4 mg tablet,disintegrating 4 mg PO Q8H PRN (Reason: Nausea) cyclobenzaprine 10 mg tablet 10 mg PO Q8H PRN (Reason: Muscle spams) atorvastatin 40 mg tablet 40 mg PO QHS acetaminophen 500 mg tablet 1,000 mg PO Q6H PRN (Reason: pain) Qty: 100 1RF Rx Instructions: Do not exceed 4000 mg of Tylenol per day. Excedrin contains Tylenol. Excedrin Migraine 250-250-65 mg tablet 1 tab PO .COMPLEX Rx Instructions: 1 TAB orally pt takes 8-12 a day; cyclobenzaprine 10 mg tablet 10 mg PO HS apstqfhsivgv-jfeirois-yzsbhz Tablet 1 tab PO DAILY nitroglycerin 0.4 mg tablet, sublingual 0.4 mg SUBLINGUAL Q5-15M PRN (Reason: Chest Pain) Qty: 25 3RF Rx Instructions: as a single dose; administer 5-10 minutes before situation known to precipitate angina attack isosorbide mononitrate 30 mg tablet extended release 24 hr 60 mg PO DAILY Qty: 90 3RF carvedilol 25 mg tablet 25 mg PO BID Qty: 180 4RF Rx Instructions: must administer with a meal/food clopidogrel 75 mg tablet 75 mg PO DAILY Qty: 30 11RF Referrals / Follow Up: Ivan Rodríguez DO [Med Staff - Active Staff] - Within 2 Weeks (For PFT. Might have undiagnosed COPD) Андрей Sultana DO [Med Staff - Active Staff] - Within 1 Month (For alcohol induced pancreatitis) Adeel Norman Chi, MD [Primary Care Provider] - Disposition Disposition (needs filled in before D/C Order can be placed): Home, Self Care Charges/Coding Visit Charges Inpatient E&M: 09198 Disch Hosp
[2022-03-03] MEDS: Oseltamivir Phosphate 75 MG Capsule PO (09:29)
[2022-03-03] MEDS: guaiFENesin/D-Methorphan TAB.SR.12H 1 TABLET PO (09:29)
[2022-03-03] MEDS: Folic Acid 1 MG Tablet PO (09:29)
[2022-03-03] MEDS: Clopidogrel Bisulfate 75 MG Tablet PO (09:29)
[2022-03-03] MEDS: Carvedilol 25 MG Tablet PO (09:29)
[2022-03-03] MEDS: Thiamine Hydrochloride 100 MG Tablet PO (09:29)
[2022-03-03] MEDS: Isosorbide Mononitrate 60 MG Tablet PO (09:29)
[2022-03-03] MEDS: Furosemide 40 MG Tablet PO (09:29)
--- NOTE | 2022-03-03 09:38 | CASEMGMT ---
Addendum entered by Philip Simons 03/03/22 09:43: Pt states her son will take her home @ discharge. Original Note: MIL[facility] LAUR[facility] NOTE: Pt being discharged home. Pt lives alone. PT/OT notes reviewed-additional therapy recommended. Pt sitting up in chair in room. Alert/oriented. Introduced self and role. Pt made aware of therapy recommendations. Pt declines wanting any HHC or OP therapy. She states she plans to get back to work as soon as possible. Noted pt used [facility] w/therapy. Pt states she does not use a walker at baseline, that she has been getting up and around her room w/out a walker, and she does not want one @ discharge. She denies having any discharge or home-going needs or concerns. MILTON LAURENT instructed her to ask for [facility]UR[facility] if anything arises prior to discharge. She voices understanding and appreciation. Esthela STUBBS RN, CM
--- NOTE | 2022-03-03 13:04 | NURSING ---
pt belongings: pt pants were missing on discharge. Ms 3 called and lost and found notified. pt given pt advocated number.
== END 2022-03-03 13:52 | disposition home or self-care (01) | DRG 438 ==
LOC: ED 22:13 → MS3 23:15 → ICU 02-28 15:39
PROVIDERS: Admitting Provider Hospitalist; Emergency Provider Emergency Medicine; PCP Family Medicine Geriatric Medicine; Visit Provider Internal Medicine
DX: K85.20 Alcohol induced acute pancreatitis without necrosis or infection (principal); J96.01 Acute respiratory failure with hypoxia; J10.08 Influenza due to other identified influenza virus with other specified pneumonia; J96.02 Acute respiratory failure with hypercapnia; J15.20 Pneumonia due to staphylococcus, unspecified; J98.11 Atelectasis; E87.29 Other acidosis; F10.20 Alcohol dependence, uncomplicated; E78.2 Mixed hyperlipidemia; E87.6 Hypokalemia; F17.200 Nicotine dependence, unspecified, uncomplicated; I25.10 Atherosclerotic heart disease of native coronary artery without angina pectoris; E87.5 Hyperkalemia; R94.31 Abnormal electrocardiogram [ECG] [EKG]; Z95.1 Presence of aortocoronary bypass graft; Z90.49 Acquired absence of other specified parts of digestive tract
CPT/HCPCS: 36415; 36600; 71045; 71275; 80048; 80053; 80061; 80076; 80202; 82803; 83690; 83735; 83880; 84484; 85025; 85379; 87040; 87449; 87493; 93005; 94002; 94003; 94640; 97110; 97162; 97166; 97530; 97535; 97802; 97803; 99284; J7030; J7040; J7050; J7120; Q9967; A4216; J1940

== ENCOUNTER → 2022-03-04 | Outpatient (CLI) | payer OTHER, SELFPAY ==
[2022-03-04 12:53] LABS: Absolute Lymphocyte Count 3.44 X10^3/uL (0.83-4.51); Absolute Neutrophil Count 4.8 X10^3/uL (2.0-7.7); Basophil# 0.03 X10^3/uL; Basophil% 0.3 % (0-1); Eosinophil# 0.11 X10^3/uL; Eosinophils% 1.1 % (0-5); Hematocrit 46.3 % (37-47); Hemoglobin 15.4 g/dL (12.0-15.0); Lymphocyte # 3.44 X10^3/ul (0.83-4.51); Lymphocyte % 35.6 % (19-41); Mean Corp Hgb Conc 33.3 g/dL (32-36); Mean Corpuscular Hgb 30.3 pg (27.0-32.0); Mean Corpuscular Volume 91.1 fL (81-99); Mean Platelet Vol. 10.6 fl (6.2-12.0); Monocyte# 1.22 X10^3/uL; Monocyte% 12.6 % (0-10); NRBC Flagged by Analyzer 0 % (0-5); Neutrophil # 4.79 X10^3/uL (2.7-7.7); Neutrophil % 49.8 % (47-70); Platelet Count 344 K/mm3 (150-450); RBC Distribution Width CV 13.7 % (11.6-14.6); Red Blood Count 5.08 M/mm3 (4.2-5.4); White Blood Count 9.7 K/mm3 (4.4-11.0)
[2022-03-04 12:57] LABS: Amylase 55 U/L (25-115); Anion Gap 8 (5-15); BUN 13 mg/dL (7-18); Calcium,Total 8.4 mg/dL (8.5-10.1); Chloride 103 mmol/L (98-107); Creatinine, Serum 0.72 mg/dL (0.55-1.02); EST Glomerular Filtration Rate 86 mL/min (>60); Est Glom Filt Rate - Afr Amer 105 mL/min (>60); Glucose 83 mg/dL (74-106); Lipase 488 U/L (73-393); Potassium 2.9 mmol/L (3.5-5.1); Sodium Level 137 mmol/L (136-145)
== END | disposition home or self-care (01) ==
LOC: POLAB3 11:39
PROVIDERS: PCP Family Medicine Geriatric Medicine; Visit Provider Family Medicine Geriatric Medicine
DX: K85.20 Alcohol induced acute pancreatitis without necrosis or infection (principal); E87.6 Hypokalemia
CPT/HCPCS: 36415; 80048; 82150; 83690; 85025

== ENCOUNTER → 2022-05-07 | Outpatient (CLI) | payer OTHER, SELFPAY ==
--- NOTE | 2022-05-07 10:17 | RAD_ITS ---
STUDY: XR Chest 2 Views 05/07/2022 10:29 AM REASON FOR EXAM: Female, 62 years old. CHEST PAIN shortness of breath COMPARISON: 02.28.22 TECHNIQUE: XR Chest 2 Views FINDINGS: There is no demonstrated pleural abnormality. There are multiple median sternotomy wires. Enlarged heart size. Normal mediastinum. Normal félix. Prominent appearing increased interstitial lung markings. Normal visualized pulmonary arteries. There is atherosclerotic calcification of the aortic arch with tortuosity. There are diffuse degenerative changes of the visualized thoracic spine. There is degenerative osteoarthritis of the bilateral shoulders. There is no demonstrated abnormality of the visualized soft tissue structures of the upper abdomen. RAD/Chest PA and Lateral IMPRESSION: There are no acute findings. Electronically Signed: Geovanni Medellin MD at 15:24 EST ,
== END | disposition home or self-care (01) ==
LOC: RAD 10:16
PROVIDERS: PCP Family Medicine Geriatric Medicine; Visit Provider Internal Medicine Cardiovascular Disease
DX: R06.02 Shortness of breath (principal); I25.10 Atherosclerotic heart disease of native coronary artery without angina pectoris; I38 Endocarditis, valve unspecified; I10 Essential (primary) hypertension; E78.2 Mixed hyperlipidemia
CPT/HCPCS: 71046

== ENCOUNTER 2022-05-13 20:29 | Emergency (ER) | payer OTHER, SELFPAY ==
[2022-05-13 20:30] VITALS: BP 144/95; PULSE 92; RESP 15; TEMP 36.1; O2SAT 95; BMI 29.5
[2022-05-13 20:34] VITALS: BP 144/95; PULSE 90; PULSE 92; RESP 17; TEMP 36.1; O2SAT 96; O2SAT 97
--- NOTE | 2022-05-13 20:36 | EKG12_ITS ---
Test Reason : NEAR SYNCOPE Blood Pressure : / mmHG Vent. Rate : 088 BPM Atrial Rate : 088 BPM P-R Int : 204 ms QRS Dur : 080 ms QT Int : 428 ms P-R-T Axes : -03 003 060 degrees QTc Int : 517 ms Normal sinus rhythm Nonspecific T wave abnormality Abnormal ECG Confirmed by LEELA CALLE, MELO ([id number]), general expeditor RODOLFO MARTIN ([id number]) on 05/17/2022 11:25:05 AM Referred By: Confirmed By:MELO SWENSON MD
--- NOTE | 2022-05-13 20:37 | EDS_ITS ---
HPI History of Present Illness Chief Complaint: Nausea/Vomiting Narrative Narrative: 62-year-old female past medical history of coronary artery disease, hypertension, hypothyroidism presents with lightheadedness, dizziness, nausea and vomiting. 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 She leaned forward/bent forward, but then became very lightheaded and dizzy. She was nauseated and vomited 4 times without any blood in her emesis. She denies any chest pain or shortness of breath, no abdominal pain. She states she broke out in a cold sweat and cannot stop. She denies any headache currently, no other symptoms. She feels slightly improved, but her lightheadedness and dizziness was worse with standing. She denies any recent diarrhea or any other symptoms. [facility] Medical History Acute on chronic systolic (congestive) heart failure Acute systolic (congestive) heart failure Alcoholism Atherosclerosis of [place] coronary artery of [place] heart without angina pectoris Chest pain Congestive heart failure Dyspnea Essential hypertension GERD (gastroesophageal reflux disease) Heart attack Hypothyroidism Hypoxemia Mixed hyperlipidemia Prolonged Q-T interval on ECG Smoker Valvular heart disease Home Medications omeprazole 40 mg capsule,delayed release 40 mg PO DAILY #90 caps 04/14/17 [Rx Last Taken 02/27/21] venlafaxine 75 mg capsule,extended release 24 hr (Effexor XR) 75 mg PO DAILY mental health 02/23/18 [History Last Taken 02/27/21] levothyroxine 25 mcg tablet 25 mcg PO DAILY thyroid 07/19/19 [History Last Taken 02/27/21] cyclobenzaprine 10 mg tablet 10 mg PO Q8H PRN Muscle spams 02/24/21 [History Last Taken 02/27/21] furosemide 40 mg tablet 40 mg PO DAILY diuretic 02/24/21 [History Last Taken 02/27/21] ondansetron 4 mg disintegrating tablet 4 mg PO Q8H PRN Nausea 02/24/21 [History Last Taken Unknown] carvedilol 25 mg tablet 25 mg PO BID #180 tabs 02/27/21 [Rx Last Taken Unknown] acetaminophen 500 mg tablet 1,000 mg PO Q6H PRN pain #100 tabs 05/15/21 [Rx Last Taken Unknown] atorvastatin 40 mg tablet 40 mg PO QHS cholesterol 09/15/21 [History Last Taken Unknown] cyclobenzaprine 10 mg tablet 10 mg PO HS 02/05/22 [History Last Taken Unknown] nhxvonqiscns-vwubdfnc-kcgamy tablet 1 tab PO DAILY 02/05/22 [History Last Taken Unknown] nitroglycerin 0.4 mg sublingual tablet 0.4 mg sublingual Q5-15M PRN Chest Pain #25 tabs 02/05/22 [Rx Last Taken Unknown] clopidogrel 75 mg tablet 75 mg PO DAILY #30 tabs 03/29/22 [Rx Last Taken Unknown] aspirin 81 mg tablet,delayed release 81 mg PO DAILY #1 TAB 05/07/22 [Rx Last Taken Unknown] isosorbide mononitrate 30 mg tablet,extended release 24 hr 30 mg PO BID #1 TAB 05/07/22 [Rx Last Taken Unknown] pseudoephedrine-guaifenesin ER 60 mg-600 mg tablet,extend release 12hr (Mucinex D) 2 tab PO BID PRN cold symptoms 05/07/22 [History Last Taken Unknown] potassium chloride 20 mEq tablet,extended release(part/cryst) 20 meq PO DAILY #5 tabs 05/13/22 [Rx Last Taken Unknown] Allergy/AdvReac Type Severity Reaction Status Date / Time No Known Allergies Allergy Verified 05/13/22 20:36 Family History Father CAD (coronary artery disease) Afib Hypertension Mother Hypertension Diabetes CAD (coronary artery disease) Son Hypertension Surgical History History of appendectomy History of cholecystectomy History of coronary artery bypass graft x 2 (~2009) History of hysterectomy History of left heart catheterization (LHC) (~02/27/21) History of open reduction and internal fixation (ORIF) procedure Social History Smoking Status: Current every day smoker tobacco type: cigarettes alcohol intake: current alcohol intake frequency: 3 or more drinks per day Alcohol type: beer substance use type: does not use caffeine: Yes Type: coffee Number of servings: 1 what type of physical activity do you participate in: walking frequency: daily duration: 15-30 minutes/day seatbelt use: always do you feel safe at home: Yes ROS ROS ED ROS Narrative Constitutional: No fever, no chills. Cold sweats. HEENT: No sore throat. No neck pain. No loss of vision. No rhinorrhea. Cardiovascular: No chest pain. No palpitations. No pedal edema. Respiratory: No cough, no shortness of breath. Abdominal: No abdominal pain. Positive nausea. 4 episodes of nonbloody vomiting. Genitourinary: No dysuria. No hematuria. Musculoskeletal: No myalgias. No arthralgias. Neurologic: No headaches. Positive dizziness. Positive lightheadedness. Skin: No rash. No change in color. Psychiatric: No depression. No anxiety. EXAM Physical Exam Narrative Exam Narrative: Afebrile. Vital signs noted. HEENT: Normocephalic. Atraumatic. PERRL, EOMI. Neck soft and supple. No point tenderness or step off. Cardiovascular: Regular rate and rhythm. No murmurs, rubs, or gallops appreciated. Respiratory: No tachypnea. Lungs clear to auscultation bilaterally. Gastrointestinal: Abdomen soft, nontender, with normoactive bowel sounds. No rebound or guarding. Neurological: Awake. Alert. Nonfocal, nonlateralizing. Skin: No rash. Normal color. No pallor. Musculoskeletal: Trace bilateral symmetric pedal edema. Full range of motion extremities. Const Vital Signs: 05/13/22 20:30 05/13/22 20:34 05/13/22 20:34 Temperature 96.9 F L 96.9 F L 96.9 F L Temperature Source Temporal Temporal Temporal Pulse Rate 92 90 92 Pulse Rate [Lying] Pulse Rate [Sitting (for 1 minute prior to obtaining)] Pulse Rate [Standing (for 1 minute prior to obtaining)] Respiratory Rate 15 17 17 Blood Pressure 144/95 H 144/95 H 144/95 H Blood Pressure [Lying] Blood Pressure [Sitting (for 1 minute prior to obtaining)] Blood Pressure [Standing (for 1 minute prior to obtaining)] Blood Pressure Mean 111 111 111 Blood Pressure Mean [Lying] Blood Pressure Mean [Sitting (for 1 minute prior to obtaining)] Blood Pressure Mean [Standing (for 1 minute prior to obtaining)] Pulse Ox 95 97 96 Oxygen Delivery Method Room Air Room Air Room Air 05/13/22 20:38 05/13/22 22:37 05/13/22 22:37 Temperature 97.3 F L Temperature Source Temporal Pulse Rate 86 86 Pulse Rate [Lying] 90 Pulse Rate [Sitting (for 1 minute prior to obtaining)] 91 Pulse Rate [Standing (for 1 minute prior to obtaining)] 90 Respiratory Rate 15 21 H Blood Pressure 148/71 H 148/71 H Blood Pressure [Lying] 154/81 H Blood Pressure [Sitting (for 1 minute prior to obtaining)] 154/73 H Blood Pressure [Standing (for 1 minute prior to obtaining)] 164/84 H Blood Pressure Mean 96 96 Blood Pressure Mean [Lying] 105 Blood Pressure Mean [Sitting (for 1 minute prior to obtaining)] 100 Blood Pressure Mean [Standing (for 1 minute prior to obtaining)] 110 Pulse Ox 97 97 Oxygen Delivery Method Room Air Room Air MDM MDM MDM Narrative Medical decision making narrative: In the differential is vertigo versus orthostatic hypotension and near syncope. She is asymptomatic without chest pain, shortness of breath, or abdominal pain. Her nausea and vomiting may have been secondary to her vertigo. I do not feel CT of the brain is indicated currently. Comprehensive work-up was pursued. I reviewed her laboratory work. CBC shows slightly elevated white count of 11.8 which I think is nonspecific. Hemoglobin stable at 11.8, platelet count normal at 444. Potassium is low at 3.0, which was replaced orally with 40 mill equivalents. When asked, she states she is supposed to be supplementing with potassium as she takes Lasix, so I wrote her prescription because she stated that she was out of medication. The prescription was for 20 mill equivalents for the next 5 days. She is to have her potassium rechecked by her primary care provider upon discharge. BNP is slightly elevated at 323. I was going to give her a bolus of IV fluids for her lightheadedness in the event that it was orthostatic, but she refused. Orthostatics are negative. In review of her BMP, glucose is appropriately elevated at 134 with a normal anion gap of 11. Lipase normal at 181. EKG was obtained and interpreted by myself which demonstrates normal sinus rhythm at 88 bpm without ectopy or acute ST changes. Her initial high-sensitivity troponin is 12. I reviewed her chest x-ray in 1 view and see no evidence of florid CHF, no pneumonia or pneumothorax. I reviewed the radiology report and they report no interval change. Urinalysis is negative for infection, while her white cells are slightly elevated she is not having dysuria or burning, so I do not feel that she requires antibiotics. At this point in time, her repeat troponin/2-hour troponin is currently pending. However, patient states that she has to go to work tomorrow, and her son does as well. She would like to sign out AGAINST MEDICAL ADVICE. I do feel she has the capacity to make this decision. She states I am fine. She was told that she runs the risk of myocardial infarction, stroke, permanent disability, and , and acknowledges an understanding. She was told that she could return to the emergency department at any time should she change her mind. Disposition is signed out AGAINST MEDICAL ADVICE. Patient is in stable condition. Lab Data Attestation: I reviewed the patient's lab results. Labs: Laboratory Results - last 24 hr 05/13/22 05/13/22 05/13/22 20:35 20:35 20:35 WBC 11.8 H RBC 4.27 Hgb 11.8 L Hct 37.4 MCV 87.6 MCH 27.6 MCHC 31.6 L RDW Std Deviation 44.3 H RDW Coeff of Bel 13.9 Plt Count 444 MPV 10.5 Immature Gran % (Auto) 0.300 Neut % (Auto) 49.9 Lymph % (Auto) 39.2 [place] % (Auto) 8.3 Eos % (Auto) 1.7 Baso % (Auto) 0.6 Absolute Neuts (auto) 5.9 Absolute Lymphs (auto) 4.63 H Nucleated RBC % 0 Differential Comment SCANNED Sodium 140 Potassium 3.0 L Chloride 102 Carbon Dioxide 27.0 Anion Gap 11 BUN 14 Creatinine 0.82 Estim Creat Clear Calc 58.09 Est GFR (MDRD) Af Amer 90 Est GFR (MDRD) Non-Af 75 BUN/Creatinine Ratio 17.1 Glucose 134 H Calcium 7.1 L Total Bilirubin 0.30 AST 13 L ALT 19 Alkaline Phosphatase 103 Troponin I High Sens 12 B-Natriuretic Peptide 323.3 H Total Protein 7.7 Albumin 2.9 L Globulin 4.8 H Albumin/Globulin Ratio 0.6 L Lipase 181 Urine Color Urine Clarity Urine pH Ur Specific [place] Urine Protein Urine Glucose (UA) Urine Ketones Urine Occult Blood Urine Nitrite Urine Bilirubin Urine Urobilinogen Ur Leukocyte Esterase Urine RBC Urine WBC Ur Squamous Epith Cells Urine Bacteria Urine Mucus 05/13/22 21:55 WBC RBC Hgb Hct MCV MCH MCHC RDW Std Deviation RDW Coeff of Bel Plt Count MPV Immature Gran % (Auto) Neut % (Auto) Lymph % (Auto) [place] % (Auto) Eos % (Auto) Baso % (Auto) Absolute Neuts (auto) Absolute Lymphs (auto) Nucleated RBC % Differential Comment Sodium Potassium Chloride Carbon Dioxide Anion Gap BUN Creatinine Estim Creat Clear Calc Est GFR (MDRD) Af Amer Est GFR (MDRD) Non-Af BUN/Creatinine Ratio Glucose Calcium Total Bilirubin AST ALT Alkaline Phosphatase Troponin I High Sens B-Natriuretic Peptide Total Protein Albumin Globulin Albumin/Globulin Ratio Lipase Urine Color Yellow Urine Clarity Clear Urine pH 6.0 Ur Specific [place] 1.010 Urine Protein 30 H Urine Glucose (UA) Normal Urine Ketones Negative Urine Occult Blood Negative Urine Nitrite Negative Urine Bilirubin Negative Urine Urobilinogen Normal Ur Leukocyte Esterase 500 H Urine RBC 0 SEEN Urine WBC 5-10 SEEN Ur Squamous Epith Cells 5-10 SEEN Urine Bacteria 0 SEEN Urine Mucus 0 SEEN Radiography Diagnostic Testing: Clinical Impression(s) from Imaging Studies Chest X-Ray 05/13/22 21:09 IMPRESSION: No acute cardiopulmonary disease or interval change. Electronically Signed: Lucio Paige DO at 21:22 EST Reading Location ID and State: [address] [place] [address] Tel [phone], Service support , Discharge Plan Triage Chief Complaint: Nausea/Vomiting ED Provider: Brandon Huerta Dx/Rx/DC Orders Clinical Impression: Near syncope, Dizziness, Hypokalemia, Left against medical advice Instructions: ED Dizziness, Uncertain Cause, ED Hypokalemia, ED Near-Fainting, Uncertain Cause Prescriptions: New potassium chloride 20 mEq tablet,ER particles/crystals 20 meq PO DAILY Qty: 5 0RF No Action omeprazole 40 MG capsule,delayed release(DR/EC) 40 mg PO DAILY Qty: 90 3RF venlafaxine [Effexor XR] 75 mg capsule,extended release 24hr 75 mg PO DAILY furosemide 40 mg tablet 40 mg PO DAILY levothyroxine 25 mcg tablet 25 mcg PO DAILY ondansetron 4 mg tablet,disintegrating 4 mg PO Q8H PRN (Reason: Nausea) cyclobenzaprine 10 mg tablet 10 mg PO Q8H PRN (Reason: Muscle spams) atorvastatin 40 mg tablet 40 mg PO QHS acetaminophen 500 mg tablet 1,000 mg PO Q6H PRN (Reason: pain) Qty: 100 1RF Rx Instructions: Do not exceed 4000 mg of Tylenol per day. Excedrin contains Tylenol. cyclobenzaprine 10 mg tablet 10 mg PO HS ihuqscdgnvmk-pesnacbi-daaunn Tablet 1 tab PO DAILY nitroglycerin 0.4 mg tablet, sublingual 0.4 mg SUBLINGUAL Q5-15M PRN (Reason: Chest Pain) Qty: 25 3RF Rx Instructions: as a single dose; administer 5-10 minutes before situation known to precipitate angina attack pseudoephedrine-guaifenesin [Mucinex D] 60-600 mg tablet extended release 12 hr 2 tab PO BID PRN (Reason: cold symptoms) aspirin 81 mg tablet,delayed release (DR/EC) 81 mg PO DAILY Qty: 1 0RF isosorbide mononitrate 30 mg tablet extended release 24 hr 30 mg PO BID Qty: 1 0RF carvedilol 25 mg tablet 25 mg PO BID Qty: 180 4RF Rx Instructions: must administer with a meal/food clopidogrel 75 mg tablet 75 mg PO DAILY Qty: 30 11RF Primary Care Provider: Adeel Norman Chi Referrals: Adeel Norman Chi, MD [Primary Care Provider] - 3-5 Days Activity Restrictions/Additional Instructions: You are signing out AGAINST MEDICAL ADVICE. Know that there is a risk of heart attack, cardiopulmonary arrest, stroke, permanent disability, and . Should you change your mind to return to the emergency department, you may call EMS. Disposition Disposition: Against Medical Advice
[2022-05-13 20:38] VITALS: BP 154/73; BP 154/81; BP 164/84; PULSE 90; PULSE 91
[2022-05-13 20:44] LABS: Absolute Lymphocyte Count 4.63 X10^3/uL (0.83-4.51); Absolute Neutrophil Count 5.9 X10^3/uL (2.0-7.7); Basophil# 0.07 X10^3/uL; Basophil% 0.6 % (0-1); Eosinophils% 1.7 % (0-5); Hematocrit 37.4 % (37-47); Hemoglobin 11.8 g/dL (12.0-15.0); Lymphocyte # 4.63 X10^3/ul (0.83-4.51); Lymphocyte % 39.2 % (19-41); Mean Corp Hgb Conc 31.6 g/dL (32-36); Mean Corpuscular Hgb 27.6 pg (27.0-32.0); Mean Corpuscular Volume 87.6 fL (81-99); Mean Platelet Vol. 10.5 fl (6.2-12.0); Monocyte# 0.98 X10^3/uL; Monocyte% 8.3 % (0-10); NRBC Flagged by Analyzer 0 % (0-5); Neutrophil % 49.9 % (47-70); POSITIVE MORPHOLOGY YES; Platelet Count 444 K/mm3 (150-450); RBC Distribution Width CV 13.9 % (11.6-14.6); RBC Distribution Width SD 44.3 fl (35.1-43.9); Red Blood Count 4.27 M/mm3 (4.2-5.4); White Blood Count 11.8 K/mm3 (4.4-11.0)
--- NOTE | 2022-05-13 20:54 | ED.RN ---
PT REFUSED IV FLUID BOLUS ORDERED BY DR. BOONE OF 2053. PT EDUCATED THIS WAS RECOMMENDED FOR PT BY DOCTOR. PT VERBALIZES UNDERSTANDING OF WHY FLUIDS WERE ORDERED AND STILL DENIES WANTING THEM. DR. BOONE AWARE.
[2022-05-13 21:04] LABS: ALB/GLOB Ratio 0.6 RATIO (0.9-2.4); AST(SGOT) 13 U/L (15-37); Alanine Aminotransfer ALT/SGPT 19 U/L (13-56); Albumin, Serum 2.9 g/dL (3.2-5.0); Alkaline Phosphatase 103 U/L (45-117); Anion Gap 11 (5-15); BUN 14 mg/dL (7-18); BUN/Creat Ratio 17.1 RATIO (10-20); Calcium,Total 7.1 mg/dL (8.5-10.1); Chloride 102 mmol/L (98-107); Creatinine, Serum 0.82 mg/dL (0.55-1.02); EST Glomerular Filtration Rate 75 mL/min (>60); Est Glom Filt Rate - Afr Amer 90 mL/min (>60); Estimated Creatinine Clearance 58.09 ml/min; Globulin 4.8 g/dL (2.2-4.2); Glucose 134 mg/dL (74-106); Lipase 181 U/L (73-393); Protein, Total 7.7 g/dL (6.4-8.2); Sodium Level 140 mmol/L (136-145); Troponin-I HS (w/2H Reflex) 12 pg/mL (3.0-54.0)
--- NOTE | 2022-05-13 21:09 | RAD_ITS ---
STUDY: X-RAY CHEST REASON FOR EXAM: Female, 62 years old. Patient broke out in a horrible sweat and became dizzy when standing up. Vomiting. History of coronary artery disease. TECHNIQUE: Single AP portable view of the chest. COMPARISON: May 07, 2022. FINDINGS: The lungs are clear and expanded. There is no demonstrated pleural abnormality. Sternal cerclage wires are present from a prior sternotomy. The heart is normal in size. Normal mediastinum and félix. Normal visualized pulmonary arteries. There is atherosclerotic calcification of the aortic arch with tortuosity. The thoracic spine is obscured by the mediastinum. Normal visualized ribs, clavicles, and shoulders. There is no demonstrated abnormality of the visualized soft tissue structures of the upper abdomen. RAD/Chest 1 View (Portable) IMPRESSION: No acute cardiopulmonary disease or interval change. Electronically Signed: Lucio Paige DO at 21:22 [facility] ,
[2022-05-13 21:21] LABS: Differential Indicated SCAN CRITERIA MET
[2022-05-13 21:30] LABS: Differential Comment SCANNED
[2022-05-13 21:44] LABS: BNP,B-Type NATRIURETIC PEPTIDE 323.3 pg/mL (0-100)
[2022-05-13] MEDS: Potassium Chloride Oral Tablet 20 MEQ 40 MEQ PO (21:45)
[2022-05-13 22:02] LABS: Bacteria 0 SEEN /hpf (None Seen); Color, Urine Yellow (Yellow); Glucose, Dipstick Normal (Normal); Ketone-Dipstick Negative (Negative); Leukocyte Esterase-Dipstick 500 /ul (Negative); Mucous, Urine 0 SEEN /hpf (<or=2+); Nitrite-Dipstick Negative (Negative); Occult Blood-Urine Negative /ul (Negative); Protein-Dipstick 30 mg/dl (Negative); Red Blood Cells-Urine 0 SEEN /hpf (0-5); Urine Bilirubin Dipstick Negative (Negative); Urine Clarity Clear (Clear); Urine Urobilinogen Normal (Normal)
[2022-05-13 22:07] LABS: Squamous Epithelial Cells - UA 5-10 SEEN /hpf (5-10)
[2022-05-13 22:08] LABS: White Blood Cells 5-10 SEEN /hpf (0-5)
[2022-05-13 22:37] VITALS: BP 148/71; PULSE 86; RESP 15; RESP 21; TEMP 36.3; O2SAT 97
[2022-05-13 22:42] LABS: Reflex Troponin-HS? (from REC) Y
[2022-05-13 22:47] VITALS: BP 148/71; PULSE 88; RESP 19; O2SAT 95
== END 2022-05-13 22:48 | disposition left against medical advice (07) ==
PROVIDERS: Emergency Provider Emergency Medicine; PCP Family Medicine Geriatric Medicine; Visit Provider Emergency Medicine
DX: R55 Syncope and collapse (principal); I50.9 Heart failure, unspecified; R42 Dizziness and giddiness; E87.6 Hypokalemia; I25.10 Atherosclerotic heart disease of native coronary artery without angina pectoris; I25.2 Old myocardial infarction; F17.210 Nicotine dependence, cigarettes, uncomplicated; Z95.1 Presence of aortocoronary bypass graft; Z53.21 Procedure and treatment not carried out due to patient leaving prior to being seen by health care provider
CPT/HCPCS: 71045; 80053; 81001; 83690; 83880; 84484; 85025; 93005; 99285; J7030; A4216

== ENCOUNTER → 2022-05-17 | Outpatient (CLI) | payer OTHER, SELFPAY ==
--- NOTE | 2022-05-17 07:08 | ECHOCS_ITS ---
Reason For Study: ASHD Procedure This was a 2D Doppler, Color Flow transthoracic echocardiogram. The study was technically difficult. Contrast injection was performed. Exam performed in department. Left Ventricle Normal LV size. Mild segmental systolic dysfunction (see wall motion). The estimated ejection fraction is 45 %. Stage 2 diastolic dysfunction. Basal inferoseptal: Hypokinetic. Mid-Lateral : Hypokinetic. Mid-Posterior: Hypokinetic. Mid-Inferior: Hypokinetic. Mid-inferoseptal : Hypokinetic. Right Ventricle Normal RV size. Normal systolic function. Atria The left atrium is mildly enlarged. Normal right atrium. No doppler evidence for ASD. Mitral Valve There is mild mitral annular calcification. Extension of the mitral annular calcification onto the base of the posterior mitral valve leaflet. Anterior leaflet diffuse mitral valve thickening. The mitral valve chordae are thickened and/or calcified. Mild-Moderate (1-2+) eccentric mitral valve insufficiency. Tricuspid Valve Normal tricuspid valve. Trivial tricuspid valve insufficiency. Unable to estimate RV systolic pressure/pulmonary artery pressure due to technically difficult study. Aortic Valve Trisinus/trileaflet aortic valve. Mild focal aortic valve calcification. Pulmonic Valve The pulmonic valve is not well visualized. Great Vessels Normal sized aortic root. Pericardium/Pleural No pericardial effusion. Medication Diluted definity 1ml given slow IV push to enhance endocardial definition. MMode/2D Measurements & Calculations LVIDd: 4.8 cm IVSd: 1.3 cm Ao root diam: 2.3 cm LVIDs: 4.4 cm LVPWd: 1.2 cm FS: 9.0 % LAV(MOD-sp4): 70.6 ml LVAd ap4: 36.5 cm2 SV(MOD-sp4): 48.2 ml LVLd ap4: 8.4 cm EDV(MOD-sp4): 133.0 ml EDV(sp4-el): 135.7 ml LVAs ap4: 26.9 cm2 LVLs ap4: 7.0 cm ESV(MOD-sp4): 84.9 ml ESV(sp4-el): 87.9 ml EF(MOD-sp4): 36.2 % EF(sp4-el): 35.2 % SV(sp4-el): 47.8 ml LA A4 area: 22.4 cm2 LA dimension(2D): 5.7 cm RA A4 area: 18.5 cm2 Time Measurements MV dec time: 0.18 sec Doppler Measurements & Calculations MV E max salbador: 88.9 cm/sec Lat Peak E' Salbador: 7.0 cm/sec Med Peak E' Salbador: 6.1 cm/sec MV A max salbador: 95.4 cm/sec E/E' lat: 12.7 E/E' med: 14.6 MV E/A: 0.93 MV V2 max: 111.8 cm/sec MV dec slope: 507.7 cm/sec2 Ao V2 max: 129.7 cm/sec MV max P.0 mmHg Ao max P.7 mmHg MV V2 mean: 78.6 cm/sec Ao V2 mean: 93.5 cm/sec MV mean P.7 mmHg Ao mean P.0 mmHg MV V2 VTI: 34.9 cm Ao V2 VTI: 30.5 cm AV (velocity ratio): 0.78 LV V1 max: 112.4 cm/sec MR max salbador: 523.4 cm/sec PA V2 max: 84.0 cm/sec LV V1 max P.1 mmHg MR max P.6 mmHg PA V2 mean: 60.1 cm/sec LV V1 mean P.9 mmHg MR mean salbador: 452.9 cm/sec LV V1 mean: 79.6 cm/sec MR mean P.8 mmHg LV V1 VTI: 23.9 cm MR VTI: 222.2 cm ECHO/Echo Complete W/ Contrast Interpretation Summary The study was technically difficult. Contrast injection was performed. Mild segmental systolic dysfunction (see wall motion). The estimated ejection fraction is 45 % The left atrium is mildly enlarged. There is mild mitral annular calcification. Extension of the mitral annular calcification onto the base of the posterior mi tral valve leaflet. Anterior leaflet diffuse mitral valve thickening. The mitral valve chordae are thickened and/or calcified. Mild-Moderate (1-2+) eccentric mitral valve insufficiency. Trivial tricuspid valve insufficiency. Mild focal aortic valve calcification. Unable to estimate RV systolic pressure/pulmonary artery pressure due to techni claire difficult study. Stage 2 diastolic dysfunction. . Ordering Physician: Liam Cazares Referring Physician: Liam Cazares Performed By: Denia Rivero RCS
--- NOTE | 2022-05-17 12:38 | STRESSREP_ITS ---
Stress Test Report Date: 05-17-2022 Procedure: Pharmacologic stress nuclear imaging study Indications: Shortness of breath/dyspnea on exertion; CAD; CABG Consent: Per the patient Procedure: The patient underwent pharmacologic (Regadenoson 0.4mg ) evaluation with a peak heart rate of 98 beats per minute (62%predicted maximal heart rate) and a resting blood pressure of 132/70 mmHg and a peak blood pressure of 132/70 mmHg. The baseline ECG demonstrated normal sinus rhythm; incomplete right bundle branch block pattern; nonspecific ST and T wave abnormality. The peak pharmacologic ECG demonstrated no obvious ECG changes. There was an isolated PVC during infusion and a rare PVC/isolated ventricular couplet during recovery. There was no complaint of chest discomfort during pharmacologic infusion or recovery. The examination was discontinued secondary to completion of protocol. Impression: 1. Pharmacologic (Regadenoson) evaluation 2. Peak pharmacologic ECG with with no obvious ECG changes. 3. There was an isolated PVC during infusion and a rare PVC/isolated ventricular couplet during recovery. 4. Nuclear images pending Myocardial perfusion imaging study: Technique: The patient was injected with 11.0 millicuries of technetium 99m Cardiolite and subsequently rest SPECT Cardiolite nuclear imaging was obtained in the horizontal long, vertical long, and short axis views. The patient underwent pharmacologic (Regadenoson) evaluation with a peak heart rate of 98 beats per minute (62% percent predicted maximal heart rate) and a resting blood pressure of 132/70 mmHg and a peak blood pressure of 132/70 mmHg. The patient was injected with 33.0 millicuries of technetium 99m Cardiolite and subsequently stress SPECT Cardiolite nuclear imaging was obtained in the horizontal long, vertical long, and short axis views. A gated Cardiolite study at peak stress was obtained. Interpretation: Rest and stress SPECT Cardiolite nuclear imaging status post realignment, normalization, and attenuation correction demonstrate appearance of diminished absence of myocardial perfusion/tracer uptake in portions of the basal to mid lateral segments with post stress myocardial perfusion changes being somewhat more prominent. There is diminished end-systolic thickening and brightening. The gated crowing study demonstrates diminished myocardial thickening and wall motion. The reported LVEF is 51%. Impression: 1. Rest and stress SPECT her nuclear imaging demonstrate myocardial perfusion changes appearing compatible with an area of previous myocardial injury/infarction involving portions of the basal to mid lateral segments with post stress myocardial perfusion changes appearing compatible with mild juan- infarct related myocardial ischemia.. 2. The gated Cardiolite study reports an LVEF of 51%. This note was generated with [employer] software. It may contain incorrect words, spelling, and punctuation that were not noted in checking the note before signing.
== END | disposition home or self-care (01) ==
LOC: CVS 07:06
PROVIDERS: PCP Family Medicine Geriatric Medicine; Referring Provider Internal Medicine Cardiovascular Disease; Visit Provider Internal Medicine Cardiovascular Disease
DX: I25.10 Atherosclerotic heart disease of native coronary artery without angina pectoris (principal); I38 Endocarditis, valve unspecified; E78.2 Mixed hyperlipidemia; I10 Essential (primary) hypertension
CPT/HCPCS: 78452; 93017; 93306; A9500; Q9957; A4216; C8929; J2785

== ENCOUNTER → 2023-03-26 | Outpatient (CLI) | payer OTHER, SELFPAY ==
[2023-03-26 11:01] LABS: Absolute Lymphocyte Count 3.26 X10^3/uL (0.83-4.51); Absolute Neutrophil Count 4.6 X10^3/uL (2.0-7.7); Basophil# 0.14 X10^3/uL; Basophil% 1.5 % (0-1); Eosinophils% 3.3 % (0-5); Hematocrit 38.2 % (37-47); Hemoglobin 11.8 g/dL (12.0-15.0); Lymphocyte # 3.26 X10^3/ul (0.83-4.51); Lymphocyte % 35.4 % (19-41); Mean Corp Hgb Conc 30.9 g/dL (32-36); Mean Corpuscular Hgb 26.5 pg (27.0-32.0); Mean Corpuscular Volume 85.7 fL (81-99); Mean Platelet Vol. 10.5 fl (6.2-12.0); Monocyte# 0.94 X10^3/uL; Monocyte% 10.2 % (0-10); NRBC Flagged by Analyzer 0 % (0-5); Neutrophil # 4.56 X10^3/uL (2.7-7.7); Neutrophil % 49.4 % (47-70); Platelet Count 375 K/mm3 (150-450); RBC Distribution Width CV 15.5 % (11.6-14.6); RBC Distribution Width SD 48.5 fl (35.1-43.9); Red Blood Count 4.46 M/mm3 (4.2-5.4); White Blood Count 9.2 K/mm3 (4.4-11.0)
[2023-03-26 11:45] LABS: Hemoglobin A1c 5.9 % (3.8-5.6)
[2023-03-26 11:49] LABS: ALB/GLOB Ratio 0.7 RATIO (0.9-2.4); AST(SGOT) 16 U/L (15-37); Alanine Aminotransfer ALT/SGPT 23 U/L (13-56); Albumin, Serum 3.1 g/dL (3.2-5.0); Alkaline Phosphatase 121 U/L (45-117); Anion Gap 4 (5-15); BUN 14 mg/dL (7-18); BUN/Creat Ratio 17.8 RATIO (10-20); Calcium,Total 9.4 mg/dL (8.5-10.1); Chloride 108 mmol/L (98-107); Cholesterol 111 mg/dL (200); Creatinine, Serum 0.79 mg/dL (0.55-1.02); EST Glomerular Filtration Rate 78 mL/min (>60); Est Glom Filt Rate - Afr Amer 95 mL/min (>60); Globulin 4.6 g/dL (2.2-4.2); Glucose 103 mg/dL (74-106); High Density Lipoprotein 50 mg/dL; Potassium 4.3 mmol/L (3.5-5.1); Protein, Total 7.7 g/dL (6.4-8.2); Sodium Level 140 mmol/L (136-145); Thyroid Stim Hormone (TSH) 1.23 uIU/mL (0.358-3.74); Triglycerides 124 mg/dL; Very Low Density Lipoprotein 25 mg/dL (5-40)
[2023-03-28 09:34] LABS: Vitamin D,25 Hydroxy 40.6 ng/mL
== END | disposition home or self-care (01) ==
LOC: LAB 09:44
PROVIDERS: PCP Internal Medicine; Referring Provider Internal Medicine; Visit Provider Internal Medicine
DX: I25.10 Atherosclerotic heart disease of native coronary artery without angina pectoris (principal); I10 Essential (primary) hypertension; E03.9 Hypothyroidism, unspecified; E55.9 Vitamin D deficiency, unspecified; R73.03 Prediabetes
CPT/HCPCS: 36415; 80053; 80061; 82306; 83036; 84443; 85025

== ENCOUNTER → 2023-09-21 | Outpatient (CLI) | payer OTHER, SELFPAY ==
[2023-09-21 17:35] LABS: Thyroid Stim Hormone (TSH) 2.96 uIU/mL (0.358-3.74)
== END | disposition home or self-care (01) ==
LOC: BIMLAB 16:13
PROVIDERS: PCP Internal Medicine; Referring Provider Internal Medicine; Visit Provider Internal Medicine
DX: E03.9 Hypothyroidism, unspecified (principal)
CPT/HCPCS: 36415; 84443

== ENCOUNTER → 2024-08-01 | Outpatient (CLI) | payer OTHER, SELFPAY ==
--- NOTE | 2024-08-01 09:37 | RAD_ITS ---
PROCEDURE: CHEST PA AND LATERAL 08/01/2024 REASON FOR EXAM: COUGH History of COPD. TECHNIQUE: Frontal and lateral views of the chest. COMPARISON: Comparison is made with prior study dated February 28, 2022. FINDINGS: Hardware: None Heart: Heart size is mildly enlarged. Prior midline sternotomy. Mediastinum: Atherosclerotic calcification of the aortic arch. Lungs: Stable increased interstitial markings in both lungs worse at the lung bases with areas of confluence suggestive of chronic interstitial scarring. Bones: Degenerative changes are identified within the thoracic spine. RAD/Chest PA and Lateral IMPRESSION: Stable examination suggestive of interstitial scarring. Reading Location: [facility]
== END | disposition home or self-care (01) ==
LOC: MTRAD 09:37
PROVIDERS: PCP Internal Medicine; Referring Provider Physician Assistant; Visit Provider Physician Assistant
DX: R05.9 Cough, unspecified (principal)
CPT/HCPCS: 71046

== ENCOUNTER → 2024-12-25 | Outpatient (CLI) | payer OTHER, SELFPAY | END | disposition home or self-care (01) | LOC: CVS 13:44 | PROVIDERS: PCP Internal Medicine; Referring Provider Nurse Practitioner Family; Visit Provider Nurse Practitioner Family | DX: I42.9 Cardiomyopathy, unspecified (principal); I36.1 Nonrheumatic tricuspid (valve) insufficiency | CPT/HCPCS: 93306; Q9957; A4216; C8929 ==